=== PATIENT | female | born 1970 | race Caucasian/White ===

== ENCOUNTER → 2016-11-03 | Outpatient (CLI) | payer OTHER ==
--- NOTE | 2016-11-04 08:08 | XR ---
EXAMINATION TYPE: XR lumbar spine 2 or 3V DATE OF EXAM: 11/03/2016 4:39 PM COMPARISON: NONE HISTORY: Segmental somatic dysfunction lumbar spine TECHNIQUE: 3 view lumbar spine FINDINGS: There is loss of disc height L3-L4. Some posterior disc space narrowing is present L5-S1. M ild posterior disc space narrowing may be present L2-L3. Vertebral body heights are preserved. Mild s pondylosis present at the L3-4 level. There 5 lumbar-type vertebral bodies. Pedicles are intact. IMPRESSION: 1. Degenerative disc changes L3-4. 2. Minimal posterior disc space narrowing may be present L2-3, L5-S1
--- NOTE | 2016-11-04 08:09 | XR ---
EXAMINATION TYPE: XR cervical spine limited DATE OF EXAM: 11/03/2016 4:39 PM COMPARISON: NONE HISTORY: Somatic cervical dysfunction TECHNIQUE: 3 view cervical spine FINDINGS: Disc space narrowing is present C5-6 C6-7. Some posterior endplate spurring at C6-7 may be present. Odontoid is limited with overlying occiput. Prevertebral space normal. Posterior spinal lame llar line is intact. There is straightening of the cervical spine related to patient positioning or m uscle spasm. IMPRESSION: 1. Degenerative disc change C5-6 C6-7
== END | disposition home or self-care (01) ==
LOC: RADXRMAIN 16:16
PROVIDERS: ATTEND Chiropractor
DX: M48.06 Spinal stenosis, lumbar region (principal); M48.07 Spinal stenosis, lumbosacral region; M47.816 Spondylosis without myelopathy or radiculopathy, lumbar region; M47.812 Spondylosis without myelopathy or radiculopathy, cervical region
CPT/HCPCS: 72040; 72100

== ENCOUNTER 2016-11-18 21:58 | Emergency (ER) | payer OTHER ==
[2016-11-18 22:24] VITALS: BP 131/87; PULSE 86; TEMP 98.3
[2016-11-18] MEDS ORDERED: PROMETHAZ-COD 6.25-10 MG/5 ML 5 ML CUP PO STA (22:30)
[2016-11-18] MEDS ORDERED: predniSONE 50 MG TAB PO STA (22:30)
--- NOTE | 2016-11-18 22:33 | ED ---
URI HPI - General Chief Complaint: Upper Respiratory Infection Stated Complaint: Coughing/Fever Time Seen by Provider: 11/18/16 22:28 Source: patient, RN notes reviewed Mode of arrival: ambulatory Limitations: no limitations - History of Present Illness Initial Comments: 46-year-old female presents to the emergency Department chief complaint of cough. Patient states she's had a cough. Last 10 days she's felt very sick and under the weather. Patient states that she has had hot and cold with this as well. Patient states that she saw Dr. León this week and started on penicillin but she continues to cough and is not feeling much better. Patient denies any nausea vomiting with this. Patient states she does not smoke. Patient states she is having clear nasal drainage and no real sputum production with the cough. Patient states she was concerned due to the continued cough and no improvement so she thought that she should be evaluated.Patient denies any recent shortness of breath, chest pain, back pain, abdominal pain, nausea vomiting, numbness or tingling, dysuria or hematuria, constipation or diarrhea, headaches or visual changes, or any other current symptoms. - Related Data Home Medications Medication Instructions Recorded Confirmed Albuterol Sulfate [Proair Hfa] 2 puff INHALATION RT-Q6H PRN 01/27/16 11/18/16 Cholecalciferol [Vitamin D3] 1,000 unit PO DAILY 01/27/16 11/18/16 DULoxetine HCL [Cymbalta] 60 mg PO BID 01/27/16 11/18/16 Docusate [Colace] 100 mg PO TID PRN 01/27/16 11/18/16 Gabapentin [Neurontin] 400 mg PO TID 01/27/16 11/18/16 Levothyroxine Sodium [Synthroid] 25 mcg PO DAILY 01/27/16 11/18/16 Naproxen 500 mg PO Q12HR PRN 01/27/16 11/18/16 Pantoprazole Sodium [Protonix] 40 mg PO DAILY 01/27/16 11/18/16 QUEtiapine FUMARATE [SEROquel] 300 mg PO HS 01/27/16 11/18/16 Topiramate [Topamax] 25 mg PO DAILY 01/27/16 11/18/16 buPROPion HCL [Wellbutrin XL] 150 mg PO DAILY 01/27/16 11/18/16 hydrOXYzine HCL [Atarax] 25 mg PO Q8H PRN 01/27/16 11/18/16 tiZANidine [Zanaflex] 4 mg PO DAILY 01/27/16 11/18/16 traMADol HCL [Ultram] 50 mg PO DAILY PRN 01/27/16 11/18/16 carBAMazepine [Carbamazepine] 200 mg PO Q12H 04/24/16 11/18/16 traZODone HCL [Desyrel] 50 mg PO HS 04/24/16 11/18/16 Previous Rx's Medication Instructions Recorded Famciclovir [Famvir] 500 mg PO Q8HR #21 tablet 04/24/16 Lidocaine 5% Patch [Lidoderm 5% 1 patch TOPICAL DAILY #5 patch 04/24/16 Patch] Promethaz-Cod 6.25-10 mg/5 ml 5 ml PO Q4HR PRN #100 ml 11/18/16 [Phenergan with Codeine] predniSONE 50 mg PO DAILY #5 tab 11/18/16 Allergies Allergy/AdvReac Type Severity Reaction Status Date / Time Sulfa (Sulfonamide Allergy Swelling Verified 11/18/16 22:24 Antibiotics) sea-kelp Allergy Rash/Hives Uncoded 11/18/16 22:24 Review of Systems ROS Statement: Those systems with pertinent positive or pertinent negative responses have been documented in the HPI. ROS Other: All systems not noted in ROS Statement are negative. Past Medical History Past Medical History: Fibromyalgia Additional Past Medical History / Comment(s): migraine History of Any Multi-Drug Resistant Organisms: None Reported Past Surgical History: Section, Cholecystectomy Additional Past Surgical History / Comment(s): gastric bypass, ovarian Past Psychological History: No Psychological Hx Reported Smoking Status: Never smoker Past Alcohol Use History: Occasional Past Drug Use History: None Reported General Exam - General Exam Comments Initial Comments: General exam: Alert, active, comfortable in no apparent distress Head: Normocephalic Eyes: Normal reaction of pupils, equal size, normal range of extraocular motion Ears: normal external ear canals, pink tympanic membranes with normal cone of light Nose: clear with pink turbinates Throat: no erythema or exudates with normal sized tonsils Neck: no masses, no nuchal rigidity Chest: no chest wall deformity Lungs: equal air entry with no crackles or wheeze CVS: S1 and S2 normal with no audible mumurs, regular rhythm Abdomen: no hepatosplenomegaly, normal bowel sounds, no guarding or rigidity Spine: no scoliosis or deformity Skin: no rashes Neurological: No focal deficits, tone is normal in all 4 extremities Limitations: no limitations Course Vital Signs 11/18/16 11/18/16 22:22 22:40 Temperature 98.3 F Pulse Rate 86 Respiratory 20 16 Rate Blood Pressure 131/87 O2 Sat by Pulse 98 Oximetry Medical Decision Making - Medical Decision Making 46-year-old female presents to the emergency department with a chief complaint of cough. A 72 start patient on Phenergan with codeine and prednisone. We discussed continuing the antibiotic she received by her doctor earlier. Vital signs are stable. We discussed Motrin Tylenol for pain control and fever control. We discussed return parameters and follow-up. Patient stated that she understood all questions were answered. She'll be discharged. - Radiology Data Radiology results: image reviewed Interpreted by me: Chest x-ray: 2 view: No sign of lobar consolidation, no sign of pneumothorax, osseous structures appear intact, awaiting official radiology read. Disposition Clinical Impression: Upper respiratory infection Disposition: HOME SELF-CARE Condition: Stable Instructions: Upper Respiratory Infection (ED) Additional Instructions: Please use medication as discussed. Please follow up with family doctor if symptoms have not improved over the next two days. Please return to the emergency room if your symptoms increase or worsen or for any other concerns. Prescriptions: Promethaz-Cod 6.25-10 mg/5 ml [Phenergan with Codeine] 5 ml PO Q4HR PRN #100 ml PRN Reason: Cough predniSONE 50 mg PO DAILY #5 tab Referrals: Bj León MD [Primary Care Provider] - 1-2 days Time of Disposition: 22:59
[2016-11-18 22:41] VITALS: RESP 16
--- NOTE | 2016-11-18 23:00 | XR ---
EXAM: XR Chest, 2 Views. CLINICAL HISTORY: Reason: cough TECHNIQUE: Frontal and lateral views of the chest. COMPARISON: None FINDINGS: Hardware: None. Lungs/pleura: Low lung volumes. Minimal bibasilar atelectasis. No focal consolidation. No pleural effusion or pneumothorax. Heart/mediastinum: Normal. No cardiomegaly. Soft tissues: Unremarkable. Bones: No acute fracture. Upper abdomen: Cholecystectomy clips in the right upper quadrant. IMPRESSION: Low lung volumes with minimal bibasilar atelectasis. No focal consolidation.
== END 2016-11-18 23:07 | disposition home or self-care (01) ==
LOC: EC 21:58
DX: J06.9 Acute upper respiratory infection, unspecified (principal); M79.7 Fibromyalgia; Z79.899 Other long term (current) drug therapy; Z88.2 Allergy status to sulfonamides; Z91.013 Allergy to seafood
CPT/HCPCS: 99283; 71020; J7512

== ENCOUNTER 2016-11-29 18:31 | Emergency (ER) | payer OTHER ==
[2016-11-29] MEDS ORDERED: DIPH,PERTUS(ACELL)TETVAC-LF 0.5 ML VIAL IM ONE (21:50)
--- NOTE | 2016-11-29 21:50 | ED ---
General Adult HPI - General Chief complaint: Wound/Laceration Stated complaint: laceration Time Seen by Provider: 11/29/16 21:40 Source: patient, RN notes reviewed Mode of arrival: ambulatory Limitations: no limitations - History of Present Illness Initial comments: This is a 46yo female who presents with a the laceration to the left hand. Patient states this happened this evening as she was using barbed wire to make a fence. Patient states the wire slipped out of her hand and cut her finger. Patient states she is not up-to-date on her tetanus shot. Patient denies any numbness/tingling or weakness. Patient denies any recent fever, chills, shortness breath, chest pain, abdominal pain, nausea/vomiting/diarrhea, back pain, hematuria, headache, or visual changes, or any other complaints. - Related Data Home Medications Medication Instructions Recorded Confirmed Albuterol Sulfate [Proair Hfa] 2 puff INHALATION RT-Q6H PRN 01/27/16 11/18/16 Cholecalciferol [Vitamin D3] 1,000 unit PO DAILY 01/27/16 11/18/16 DULoxetine HCL [Cymbalta] 60 mg PO BID 01/27/16 11/18/16 Docusate [Colace] 100 mg PO TID PRN 01/27/16 11/18/16 Gabapentin [Neurontin] 400 mg PO TID 01/27/16 11/18/16 Levothyroxine Sodium [Synthroid] 25 mcg PO DAILY 01/27/16 11/18/16 Naproxen 500 mg PO Q12HR PRN 01/27/16 11/18/16 Pantoprazole Sodium [Protonix] 40 mg PO DAILY 01/27/16 11/18/16 QUEtiapine FUMARATE [SEROquel] 300 mg PO HS 01/27/16 11/18/16 Topiramate [Topamax] 25 mg PO DAILY 01/27/16 11/18/16 buPROPion HCL [Wellbutrin XL] 150 mg PO DAILY 01/27/16 11/18/16 hydrOXYzine HCL [Atarax] 25 mg PO Q8H PRN 01/27/16 11/18/16 tiZANidine [Zanaflex] 4 mg PO DAILY 01/27/16 11/18/16 traMADol HCL [Ultram] 50 mg PO DAILY PRN 01/27/16 11/18/16 carBAMazepine [Carbamazepine] 200 mg PO Q12H 04/24/16 11/18/16 traZODone HCL [Desyrel] 50 mg PO HS 04/24/16 11/18/16 Previous Rx's Medication Instructions Recorded Famciclovir [Famvir] 500 mg PO Q8HR #21 tablet 04/24/16 Lidocaine 5% Patch [Lidoderm 5% 1 patch TOPICAL DAILY #5 patch 04/24/16 Patch] Promethaz-Cod 6.25-10 mg/5 ml 5 ml PO Q4HR PRN #100 ml 11/18/16 [Phenergan with Codeine] predniSONE 50 mg PO DAILY #5 tab 11/18/16 Cephalexin [Keflex] 500 mg PO Q12HR 5 Days 11/29/16 Allergies Allergy/AdvReac Type Severity Reaction Status Date / Time Sulfa (Sulfonamide Allergy Swelling Verified 11/29/16 18:59 Antibiotics) sea-kelp Allergy Rash/Hives Uncoded 11/29/16 18:59 Review of Systems ROS Statement: Those systems with pertinent positive or pertinent negative responses have been documented in the HPI. ROS Other: All systems not noted in ROS Statement are negative. Past Medical History Past Medical History: Fibromyalgia Additional Past Medical History / Comment(s): migraine History of Any Multi-Drug Resistant Organisms: None Reported Past Surgical History: Section, Cholecystectomy Additional Past Surgical History / Comment(s): gastric bypass, ovarian Past Psychological History: No Psychological Hx Reported Smoking Status: Never smoker Past Alcohol Use History: Occasional Past Drug Use History: None Reported General Exam - General Exam Comments Initial Comments: General: The patient is awake and alert, in no distress, and does not appear acutely ill. Neck: The neck is supple, there is no tenderness or JVD. Cardiovascular: There is a regular rate and rhythm. No murmur, rub or gallop is appreciated. Respiratory: Lungs are clear to auscultation, respirations are non-labored, breath sounds are equal. No wheezes, stridor, rales, or rhonchi. Musculoskeletal: There is tenderness to palpation over the left fourth digit. There is an approximately 1.5 cm laceration to the palmar aspect of the proximal left fourth digit. Patient has full range of motion, strength 5/5 and Sensation intact. Radial pulses 2+ bilaterally and capillary refill is normal at less than 2 seconds. Neurological: A&O x 3. CN II-XII intact, There are no obvious motor or sensory deficits. Coordination appears grossly intact. Speech is normal. Skin: There is an approximately 1.5 cm laceration to the right proximal fourth digit on the palmar side. Skin is warm and dry and no rashes or lesions are noted. Psychiatric: Normal mood and affect. Limitations: no limitations Course Vital Signs 11/29/16 18:57 Temperature 97.5 F L Pulse Rate 95 Respiratory 20 Rate Blood Pressure 116/73 O2 Sat by Pulse 100 Oximetry Procedures - Procedures Initial comment: The skin was anesthetized with 1% lidocaine. The laceration was then cleansed and irrigated with normal saline. The wound was inspected, and there was no evidence of injury to deep structures. No foreign body was noted in the wound. A total of 4 skin sutures were placed utilizing 5-0 Ethilon. Laceration is approx 1.5 cm. Patient tolerated the procedure well. Medical Decision Making - Medical Decision Making This is a 46-year-old female presents laceration to the left hand. On physical exam there is tenderness to palpation over the left fourth digit. There is an approximately 1.5 cm laceration to the palmar aspect of the proximal left fourth digit. Patient has full range of motion, strength 5/5 and Sensation intact. Radial pulses 2+ bilaterally and capillary refill is normal at less than 2 seconds. Patient received a tetanus shot in the [facility] today. An x-ray of the left hand was done and reviewed showing: Normal left hand x-rays. Report by Dr. Peña. The skin was anesthetized with 1% lidocaine. The laceration was then cleansed and irrigated with normal saline. The wound was inspected, and there was no evidence of injury to deep structures. No foreign body was noted in the wound. A total of 4 skin sutures were placed utilizing 5-0 Ethilon. Laceration is approx 1.5 cm. I discussed that sutures need to be removed in 8-10 days. I discussed that rinsing and showering are okay but to avoid submerging the wound in water. Discussed [id number] Tylenol and Motrin as needed for any pain. I discussed use of topical Neosporin. I discussed return parameters and signs of infection. Please finish entire course of Keflex. Discussed that patient should follow up with PCP in one to 2 days or return to the [facility] for any worsening symptoms or for any further concerns. Patient was receptive to this plan and patient will be discharged home. Disposition Clinical Impression: Laceration Disposition: HOME SELF-CARE Condition: Good Instructions: Laceration (ED), Care For Your Stitches (ED) Additional Instructions: Please have sutures removed in 8-10 days. Please finish entire course of antibiotics. Please do not submerge the wound in water but rinsing and showering are okay. Please use Tylenol or Motrin for any pain. Please use medication as discussed. Please follow-up with family doctor in the next 2 days of symptoms have not improved. Please return to emergency room if the symptoms increase or worsen or for any other concerns. Prescriptions: Cephalexin [Keflex] 500 mg PO Q12HR 5 Days Referrals: Bj León MD [Primary Care Provider] - 1-2 days Time of Disposition: 22:42
--- NOTE | 2016-11-29 22:14 | XR ---
EXAM: XR Left Hand Complete, 3 or More Views. CLINICAL HISTORY: Reason: Pain Laceration from gerald wire fourth digit. TECHNIQUE: Frontal, lateral and oblique views of the left hand. COMPARISON: No relevant prior studies available. FINDINGS: Bones/joints: Unremarkable. No acute fracture. No dislocation. Soft tissues: Unremarkable. No radiopaque foreign body. IMPRESSION: Normal left hand x-rays.
[2016-11-29 22:54] VITALS: BP 118/68; PULSE 80; RESP 16; TEMP 97.6
== END 2016-11-29 22:50 | disposition home or self-care (01) ==
LOC: EC 18:31
DX: S61.412A Laceration without foreign body of left hand, initial encounter (principal); W45.8XXA Other foreign body or object entering through skin, initial encounter; W22.8XXA Striking against or struck by other objects, initial encounter; M79.7 Fibromyalgia; Z23 Encounter for immunization; G43.909 Migraine, unspecified, not intractable, without status migrainosus; Z79.899 Other long term (current) drug therapy; Z91.09 Other allergy status, other than to drugs and biological substances; Z88.2 Allergy status to sulfonamides
CPT/HCPCS: 12001; 90471; 90715; 99283

== ENCOUNTER 2017-03-24 16:47 | Emergency (ER) | payer OTHER ==
[2017-03-24 17:03] VITALS: BP 120/84; PULSE 79; RESP 16; TEMP 99
--- NOTE | 2017-03-24 17:36 | XR ---
EXAMINATION TYPE: XR hand complete RT DATE OF EXAM: 03/24/2017 COMPARISON: NONE HISTORY: Pain TECHNIQUE: 3 views FINDINGS: I see no fracture nor dislocation. Joint spaces are normal. There are no erosions. IMPRESSION: Negative right hand exam.
--- NOTE | 2017-03-24 17:36 | XR ---
EXAMINATION TYPE: XR wrist complete RT DATE OF EXAM: 03/24/2017 COMPARISON: NONE HISTORY: Pain TECHNIQUE: 4 views FINDINGS: I see no fracture nor dislocation. Joint spaces are normal. Soft tissues appear normal. IMPRESSION: Normal right wrist
--- NOTE | 2017-03-24 17:38 | ED ---
Upper Extremity HPI - General Chief Complaint: Extremity Injury, Upper Stated Complaint: Wrist/Hand Injury Time Seen by Provider: 03/24/17 17:11 Source: patient, RN notes reviewed, old records reviewed Mode of arrival: ambulatory Limitations: no limitations - History of Present Illness Initial Comments: 47-year-old female presents emergency room chief complaint of right wrist and hand pain after she possibly fell last night [place] Patient reports she was intoxicated. She reports that she does not know exactly how she fell. She reports that she's woke up with swelling and pain over her right hand. She is right-handed. She states that she has no peripheral paresthesias. Denies any elbow pain. She denies any previous fractures or injuries to this hand or wrist.Patient denies any recent fever, chills, shortness of breath, chest pain, back pain, abdominal pain, nausea vomiting, numbness or tingling, dysuria or hematuria, constipation or diarrhea, headaches or visual changes, or any other current symptoms - Related Data Home Medications Medication Instructions Recorded Confirmed Albuterol Sulfate [Proair Hfa] 2 puff INHALATION RT-Q6H PRN 01/27/16 03/24/17 Cholecalciferol [Vitamin D3] 1,000 unit PO DAILY 01/27/16 03/24/17 DULoxetine HCL [Cymbalta] 60 mg PO BID 01/27/16 03/24/17 Docusate [Colace] 100 mg PO TID PRN 01/27/16 03/24/17 Gabapentin [Neurontin] 400 mg PO TID 01/27/16 03/24/17 Levothyroxine Sodium [Synthroid] 25 mcg PO DAILY 01/27/16 03/24/17 Naproxen 500 mg PO Q12HR PRN 01/27/16 03/24/17 Pantoprazole Sodium [Protonix] 40 mg PO DAILY 01/27/16 03/24/17 QUEtiapine FUMARATE [SEROquel] 300 mg PO HS 01/27/16 03/24/17 Topiramate [Topamax] 25 mg PO DAILY 01/27/16 03/24/17 buPROPion HCL [Wellbutrin XL] 150 mg PO DAILY 01/27/16 03/24/17 hydrOXYzine HCL [Atarax] 25 mg PO Q8H PRN 01/27/16 03/24/17 tiZANidine [Zanaflex] 4 mg PO DAILY 01/27/16 03/24/17 traMADol HCL [Ultram] 50 mg PO DAILY PRN 01/27/16 03/24/17 carBAMazepine [Carbamazepine] 200 mg PO Q12H 04/24/16 03/24/17 traZODone HCL [Desyrel] 50 mg PO HS 04/24/16 03/24/17 Previous Rx's Medication Instructions Recorded Famciclovir [Famvir] 500 mg PO Q8HR #21 tablet 04/24/16 Lidocaine 5% Patch [Lidoderm 5% 1 patch TOPICAL DAILY #5 patch 04/24/16 Patch] Promethaz-Cod 6.25-10 mg/5 ml 5 ml PO Q4HR PRN #100 ml 11/18/16 [Phenergan with Codeine] predniSONE 50 mg PO DAILY #5 tab 11/18/16 Cephalexin [Keflex] 500 mg PO Q12HR 5 Days 11/29/16 Naproxen 500 mg PO BID #20 tablet 03/24/17 Allergies Allergy/AdvReac Type Severity Reaction Status Date / Time Sulfa (Sulfonamide Allergy Swelling Verified 03/24/17 17:03 Antibiotics) sea-kelp Allergy Rash/Hives Uncoded 03/24/17 17:03 Review of Systems ROS Statement: Those systems with pertinent positive or pertinent negative responses have been documented in the HPI. ROS Other: All systems not noted in ROS Statement are negative. Past Medical History Past Medical History: Fibromyalgia Additional Past Medical History / Comment(s): migraine History of Any Multi-Drug Resistant Organisms: None Reported Past Surgical History: Section, Cholecystectomy Additional Past Surgical History / Comment(s): gastric bypass, ovarian Past Psychological History: No Psychological Hx Reported Smoking Status: Never smoker Past Alcohol Use History: Occasional Past Drug Use History: None Reported General Exam - General Exam Comments Initial Comments: Pleasant 47-year-old female. No acute distress. Limitations: no limitations General appearance: alert, in no apparent distress Head exam: Present: atraumatic, normocephalic, normal inspection Eye exam: Present: normal appearance, PERRL, EOMI. Absent: scleral icterus, conjunctival injection, periorbital swelling ENT exam: Present: normal exam, mucous membranes moist Neck exam: Present: normal inspection. Absent: tenderness, meningismus, lymphadenopathy Respiratory exam: Present: normal lung sounds bilaterally. Absent: respiratory distress, wheezes, rales, rhonchi, stridor Cardiovascular Exam: Present: regular rate, normal rhythm, normal heart sounds. Absent: systolic murmur, diastolic murmur, rubs, gallop, clicks GI/Abdominal exam: Present: soft, normal bowel sounds. Absent: distended, tenderness, guarding, rebound, rigid Extremities exam: Present: normal inspection, full ROM, normal capillary refill. Absent: tenderness, pedal edema, joint swelling, calf tenderness Right Upper Arm exam: Present: normal inspection, full ROM Elbow exam: Present: normal inspection, full ROM Forearm Wrist exam: Present: swelling (Patient has some swelling and mild deformity noted over the distal right wrist.), tenderness over anatomical snuff box. Absent: normal inspection, pain with axial thumb loading Hand Wrist exam: Present: normal inspection, tenderness, ecchymosis (Patient has some tenderness and ecchymosis noted at the base of the third metacarpal.). Absent: full ROM Neuro motor exam: Present: wrist extension intact, thumb opposition intact Vascular: Present: normal capillary refill Back exam: Present: normal inspection Neurological exam: Present: alert, oriented X3, CN II-XII intact Psychiatric exam: Present: normal affect, normal mood Skin exam: Present: warm, dry, intact, normal color. Absent: rash Course Vital Signs 03/24/17 16:59 Temperature 99.0 F Pulse Rate 79 Respiratory 16 Rate Blood Pressure 120/84 O2 Sat by Pulse 100 Oximetry Procedures - Orthopedic Splinting/Casting Injury #1 Side: right Upper Extremity Injury Location: wrist Upper Extremity Immobilizer: thumb spica Additional Comments: Patient's capillary refill status is within normal limits after. Medical Decision Making - Medical Decision Making 47-year-old female presents emergency room chief complaint of right wrist and hand pain after she possibly fell last [place] Patient reports she was intoxicated. She reports that she does not know exactly how she fell. She reports that she's woke up with swelling and pain over her right hand. She is right-handed. X-rays are reviewed and negative for any acute process. Patient is somewhat tender over the anatomical snuffbox. Given the fact is an unknown mechanism of injury is likely patient could've fallen on outstretched hand. Patient will be placed in a thumb spica splint. Discussed that she needs to rest and ice and elevate extremity. Discussed taking his have laboratory medicine. Patient be given a referral for orthopedic physician. - Radiology Data Radiology results: report reviewed Right wrist and hand x-rays are reviewed and negative for any acute process. Disposition Clinical Impression: Wrist sprain, Right wrist injury Disposition: HOME SELF-CARE Condition: Good Instructions: Wrist Injury (ED) Additional Instructions: Patient is to rest, ice, elevate extremity. Take a temperature medications for pain. Patient advised to keep the splint on until he can see orthopedic on Sunday. Return to the emergency department if any alarming signs or symptoms occur. Prescriptions: Naproxen 500 mg PO BID #20 tablet Referrals: Bj León MD [Primary Care Provider] - 1-2 days Remigio Bermudez MD [STAFF PHYSICIAN] - 1-2 days Time of Disposition: 17:40
== END 2017-03-24 17:57 | disposition home or self-care (01) ==
LOC: EC 16:47
DX: S63.501A Unspecified sprain of right wrist, initial encounter (principal); F10.129 Alcohol abuse with intoxication, unspecified; M79.7 Fibromyalgia; Z79.899 Other long term (current) drug therapy; Z88.2 Allergy status to sulfonamides; Z91.09 Other allergy status, other than to drugs and biological substances; Z86.69 Personal history of other diseases of the nervous system and sense organs; W19.XXXA Unspecified fall, initial encounter; Y92.814 Boat as the place of occurrence of the external cause
CPT/HCPCS: 29125; 99284

== ENCOUNTER 2017-03-28 15:12 | Emergency (ER) | payer OTHER ==
[2017-03-28 16:03] VITALS: BP 121/70; PULSE 85; RESP 18; TEMP 98.3
--- NOTE | 2017-03-28 16:13 | ED ---
General Adult HPI - General Chief complaint: Extremity Injury, Upper Stated complaint: right hand injury-revisit Time Seen by Provider: 03/28/17 16:03 Source: patient, RN notes reviewed Mode of arrival: ambulatory Limitations: no limitations - History of Present Illness Initial comments: 47-year-old female presents emergency Department chief complaint of continued right wrist pain. Patient had a fall over night and continues to have pain to the right wrist. Patient states that she did have x-rays that were negative there concerned about her tenderness or that will not see her due to her insurance. Patient states she is here because she did not know what else to go. Patient states that she hasn't had any cough cold Raynaud's. Patient denies any new or changing injury. Patient denies any recent fever, chills, shortness of breath, chest pain, back pain, abdominal pain, nausea vomiting, numbness or tingling, dysuria or hematuria, constipation or diarrhea, headaches or visual changes, or any other current symptoms. - Related Data Home Medications Medication Instructions Recorded Confirmed Albuterol Sulfate [Proair Hfa] 2 puff INHALATION RT-Q6H PRN 01/27/16 03/24/17 Cholecalciferol [Vitamin D3] 1,000 unit PO DAILY 01/27/16 03/24/17 DULoxetine HCL [Cymbalta] 60 mg PO BID 01/27/16 03/24/17 Docusate [Colace] 100 mg PO TID PRN 01/27/16 03/24/17 Gabapentin [Neurontin] 400 mg PO TID 01/27/16 03/24/17 Levothyroxine Sodium [Synthroid] 25 mcg PO DAILY 01/27/16 03/24/17 Naproxen 500 mg PO Q12HR PRN 01/27/16 03/24/17 Pantoprazole Sodium [Protonix] 40 mg PO DAILY 01/27/16 03/24/17 QUEtiapine FUMARATE [SEROquel] 300 mg PO HS 01/27/16 03/24/17 Topiramate [Topamax] 25 mg PO DAILY 01/27/16 03/24/17 buPROPion HCL [Wellbutrin XL] 150 mg PO DAILY 01/27/16 03/24/17 hydrOXYzine HCL [Atarax] 25 mg PO Q8H PRN 01/27/16 03/24/17 tiZANidine [Zanaflex] 4 mg PO DAILY 01/27/16 03/24/17 traMADol HCL [Ultram] 50 mg PO DAILY PRN 01/27/16 03/24/17 carBAMazepine [Carbamazepine] 200 mg PO Q12H 04/24/16 03/24/17 traZODone HCL [Desyrel] 50 mg PO HS 04/24/16 03/24/17 Previous Rx's Medication Instructions Recorded Famciclovir [Famvir] 500 mg PO Q8HR #21 tablet 04/24/16 Lidocaine 5% Patch [Lidoderm 5% 1 patch TOPICAL DAILY #5 patch 04/24/16 Patch] Promethaz-Cod 6.25-10 mg/5 ml 5 ml PO Q4HR PRN #100 ml 11/18/16 [Phenergan with Codeine] predniSONE 50 mg PO DAILY #5 tab 11/18/16 Cephalexin [Keflex] 500 mg PO Q12HR 5 Days 11/29/16 Naproxen 500 mg PO BID #20 tablet 03/24/17 Allergies Allergy/AdvReac Type Severity Reaction Status Date / Time Sulfa (Sulfonamide Allergy Swelling Verified 03/28/17 16:02 Antibiotics) sea-kelp Allergy Rash/Hives Uncoded 03/28/17 16:02 Review of Systems ROS Statement: Those systems with pertinent positive or pertinent negative responses have been documented in the HPI. ROS Other: All systems not noted in ROS Statement are negative. Past Medical History Past Medical History: Fibromyalgia Additional Past Medical History / Comment(s): migraine History of Any Multi-Drug Resistant Organisms: None Reported Past Surgical History: Section, Cholecystectomy Additional Past Surgical History / Comment(s): gastric bypass, ovarian Past Psychological History: No Psychological Hx Reported Smoking Status: Never smoker Past Alcohol Use History: Occasional Past Drug Use History: None Reported General Exam - General Exam Comments Initial Comments: General: The patient is awake and alert, in no distress, and does not appear acutely ill. Neck: The neck is supple, there is no tenderness . Cardiovascular: There is a regular rate and rhythm. No murmur, rub or gallop is appreciated. Respiratory: Lungs are clear to auscultation, respirations are non-labored, breath sounds are equal. No wheezes, stridor, rales, or rhonchi. Musculoskeletal: Sensation intact with 2+ pulses. Pressure. Patient has pain with range of motion of the wrist but full range motion of right hand and elbow. Patient has tenderness of the anatomical snuffbox. There is bruising and pain noted throughout all metacarpals. Neurological: CN II-XII intact, There are no obvious motor or sensory deficits. Coordination appears grossly intact. Speech is normal. Skin: Skin is warm and dry and no rashes or lesions are noted. Psychiatric: Normal mood and affect. Limitations: no limitations Course Vital Signs 03/28/17 15:59 Temperature 98.3 F Pulse Rate 85 Respiratory 18 Rate Blood Pressure 121/70 O2 Sat by Pulse 100 Oximetry Medical Decision Making - Medical Decision Making 47-year-old female presents emergency department with a Chief complaint of right wrist pain. Patient continues to have anatomical snuffbox. This time we did give her follow-up to orthopedic we discussed return parameters all questions. Patient stated that she understood. She'll be discharged home. Disposition Clinical Impression: Wrist sprain, Right wrist injury Disposition: HOME SELF-CARE Condition: Serious Instructions: Wrist Injury (ED) Additional Instructions: Please use medication as discussed. Please follow up with family doctor if symptoms have not improved over the next two days. Please return to the emergency room if your symptoms increase or worsen or for any other concerns. Referrals: Bj León MD [Primary Care Provider] - 1-2 days Aundrea Chavarria DO [Doctor of Osteopathic Medicine] - 1-2 days Time of Disposition: 16:12
== END 2017-03-28 16:22 | disposition home or self-care (01) ==
LOC: EC 15:12
DX: S63.501A Unspecified sprain of right wrist, initial encounter (principal); M79.7 Fibromyalgia; Z88.2 Allergy status to sulfonamides; Z88.8 Allergy status to other drugs, medicaments and biological substances; Z79.899 Other long term (current) drug therapy; Y92.89 Other specified places as the place of occurrence of the external cause
CPT/HCPCS: 99282

== ENCOUNTER → 2017-06-22 | Outpatient (CLI) | payer OTHER ==
--- NOTE | 2017-06-22 13:25 | US ---
EXAMINATION TYPE: US thyroid st tissue head/neck DATE OF EXAM: 06/22/2017 COMPARISON: NONE CLINICAL HISTORY: E04.1 SINGLE THYROID NODULE. GLAND SIZE: Right Lobe: 3.9 x 1.0 x 0.9 cm Overall Parenchyma: homogenous Left Lobe: 4.1 x 0.8 x 1.4 cm Overall Parenchyma: homogeneous Isthmus Thickness: 0.2 cm NODULES RIGHT: # of nodules measured on right: 0 LEFT: # of nodules measured on left: 1 1. 1.2 X 0.8 x 0.9 cm hypoechoic solid nodule at the lower pole with well-defined margins; . This nodule is wider than tall and shows intranodular vascularity. Prior size: No previous ISTHMUS: # of nodules measured in the isthmus: 0 Bilateral neck scanned, no evidence of lymphadenopathy. IMPRESSION: 1.2 cm solid nodule left lobe of thyroid.
== END ==
LOC: RADUSWWP 12:57
PROVIDERS: ATTEND Family Medicine
DX: E04.1 Nontoxic single thyroid nodule (principal)
CPT/HCPCS: 76536

== ENCOUNTER 2017-07-23 18:27 | Emergency (ER) | payer OTHER ==
[2017-07-23] MEDS ORDERED: DIAZEPAM 5 MG TAB PO STA (19:19)
--- NOTE | 2017-07-23 19:26 | ED ---
General Adult HPI - General Chief complaint: Back Pain/Injury Stated complaint: BACK PAIN Time Seen by Provider: 07/23/17 19:06 Source: patient Mode of arrival: wheelchair Limitations: physical limitation - History of Present Illness Initial comments: a 47-year-old female with a history of fibromyalgia presents with a chief complaint of "back pain and ovary pain" that started 3 hours ago. The patient states that the inciting incident was cleaning her kitchen. Patient states that she followed back tighten up, and went to lay down. When she woke up she was in excruciating pain. She was carried to the car and brought to the emergency department on initial evaluation, the patient appears to be in no distress, she is sitting with her right knee talked to her chest. Her vital signs are stable. He is talking and joking with her family in the exam room. Patient appears comfortable. Patient states that her pain is aggravated by moving. It is alleviated by bringing her knee to her chest. She does have a history of polycystic ovaries. She is ALLERGIC to sulfa. - Related Data Home Medications Medication Instructions Recorded Confirmed DULoxetine HCL [Cymbalta] 60 mg PO BID 01/27/16 07/23/17 Gabapentin [Neurontin] 400 mg PO TID 01/27/16 07/23/17 Levothyroxine Sodium [Synthroid] 25 mcg PO DAILY 01/27/16 07/23/17 Naproxen 500 mg PO Q12HR PRN 01/27/16 07/23/17 QUEtiapine FUMARATE [SEROquel] 300 mg PO HS 01/27/16 07/23/17 carBAMazepine [Carbamazepine] 200 mg PO Q12H 04/24/16 07/23/17 Previous Rx's Medication Instructions Recorded Methocarbamol [Robaxin-750] 750 mg PO TID #10 tablet 07/23/17 Allergies Allergy/AdvReac Type Severity Reaction Status Date / Time Sulfa (Sulfonamide Allergy Swelling Verified 07/23/17 19:49 Antibiotics) sea-kelp Allergy Rash/Hives Uncoded 07/23/17 18:45 Review of Systems ROS Statement: Those systems with pertinent positive or pertinent negative responses have been documented in the HPI. ROS Other: All systems not noted in ROS Statement are negative. Constitutional: Denies: fever Eyes: Denies: vision change ENT: Denies: ear pain, throat pain Respiratory: Denies: dyspnea Cardiovascular: Denies: chest pain Endocrine: Denies: fatigue Gastrointestinal: Reports: abdominal pain. Denies: nausea, vomiting Genitourinary: Denies: dysuria Musculoskeletal: Denies: back pain Skin: Denies: rash, lesions Neurological: Denies: headache Past Medical History Past Medical History: Fibromyalgia Additional Past Medical History / Comment(s): migraine History of Any Multi-Drug Resistant Organisms: None Reported Past Surgical History: Section, Cholecystectomy Additional Past Surgical History / Comment(s): gastric bypass, ovarian Past Psychological History: No Psychological Hx Reported Smoking Status: Never smoker Past Alcohol Use History: Occasional Past Drug Use History: None Reported General Exam Limitations: no limitations, language barrier, physical limitation General appearance: alert, in no apparent distress Head exam: Present: atraumatic, normocephalic Respiratory exam: Present: normal lung sounds bilaterally Cardiovascular Exam: Present: regular rate, normal rhythm GI/Abdominal exam: Present: soft, tenderness (patient has tenderness to palpation of the right lower quadrant). Absent: distended Rectal exam: Present: deferred Back exam: Present: normal inspection. Absent: CVA tenderness (R), CVA tenderness (L) Neurological exam: Present: alert, oriented X3 Psychiatric exam: Present: normal affect, normal mood Skin exam: Present: warm, dry, intact Course Vital Signs 07/23/17 18:44 Temperature 98.1 F Pulse Rate 88 Respiratory 20 Rate Blood Pressure 118/75 O2 Sat by Pulse 98 Oximetry Medical Decision Making - Medical Decision Making patient presents with a chief complaint of "back and ovary pain". History and physical examination are consistent with a strain of the psoas muscle. At this time there is a low likelihoodfor etiologies such as appendicitis given the patient is afebrile, normal appetite, bowel movements, and had a very abrupt onset. Patient does have a history of polycystic ovaries for which she will be evaluated with ultrasound to rule out torsion patient was given Valium for suspected muscle spasm. 9:16 PM Ultrasound evaluation of the pelvic organs shows a surgically absent uterus with good flow to the ovaries bilaterally. There is a cyst on the left ovary otherwise there is no acute process. A reexamination, patient states that she is still in pain. I discussed that we will not be using narcotic medication and that I'm willing to give her a dose of Robaxin and a prescription. She is agreeable. Patient was instructed to follow up with her primary care doctor or return to the emergency department if her symptoms worsen or change Disposition Clinical Impression: Mechanical back pain Disposition: HOME SELF-CARE Condition: Good Instructions: Muscle Spasm (ED) Referrals: Bj León MD [Primary Care Provider] - 1-2 days
--- NOTE | 2017-07-23 20:41 | US ---
EXAMINATION TYPE: US transvaginal DATE OF EXAM: 07/23/2017 COMPARISON: NONE CLINICAL HISTORY: Pain. RLQ pain hx of PCOS TECHNIQUE: Transvaginal (TV) EXAM MEASUREMENTS: Uterus: Surgically absent cm Endometrial Stripe: Surgically absent cm Right Ovary: 2.9 x 1.7 x 2.0 cm Left Ovary: 4.1 x 2.7 x 3.1 cm Bilateral follicles seen largest cystic area left ovary measuring 3.0 x 1.4 x 2.7cm 1. Uterus: Surgically absent 2. Endometrium: Surgically absent 3. Right Ovary: wnl 4. Left Ovary: cystic area measuring 3.0 x 1.4 x 2.7cm Spectral, color and waveform doppler imaging shows good arterial and venous flow within the ovaries ; there is no evidence for ovarian torsion. 5. Bilateral Adnexa: wnl 6. Posterior cul-de-sac: wnl Tried to have patient empty bladder at start of exam unable to empty IMPRESSION: There is a dominant simple cyst on the left ovary. No solid adnexal mass.
[2017-07-23] MEDS ORDERED: METHOCARBAMOL 750 MG TAB PO ONE (21:14)
[2017-07-23 21:37] VITALS: BP 121/76; PULSE 63; RESP 18; TEMP 97.2
== END 2017-07-23 21:37 | disposition home or self-care (01) ==
LOC: EC 18:27
DX: M54.9 Dorsalgia, unspecified (principal); N94.89 Other specified conditions associated with female genital organs and menstrual cycle; M79.7 Fibromyalgia; Z79.899 Other long term (current) drug therapy; Z88.2 Allergy status to sulfonamides; Z88.8 Allergy status to other drugs, medicaments and biological substances
CPT/HCPCS: 76830; 93975; 99283

== ENCOUNTER 2017-12-31 16:57 | Emergency (ER) | payer OTHER ==
[2017-12-31 17:58] VITALS: BP 116/81; PULSE 77; RESP 18; TEMP 97.3
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
== END 2017-12-31 19:18 | disposition home or self-care (01) ==
LOC: EC 16:57
DX: G89.29 Other chronic pain (principal); M54.5 Low back pain; M79.7 Fibromyalgia; F31.9 Bipolar disorder, unspecified; F41.9 Anxiety disorder, unspecified; Z79.899 Other long term (current) drug therapy; Z88.2 Allergy status to sulfonamides; Z91.013 Allergy to seafood
CPT/HCPCS: 72110; 99283

== ENCOUNTER → 2018-01-18 | Outpatient (CLI) | payer OTHER ==
[2018-01-18 12:44] LABS: Anisocytosis Slight; HCT 33.2 % (34.0-46.0); HGB 10.1 gm/dL (11.4-16.0); Hypochromasia Marked; MCH 24.8 pg (25.0-35.0); MCHC 30.5 g/dL (31.0-37.0); MCV 81.3 fL (80.0-100.0); Mean Platelet Volume 6.8; Platelet Count 323 k/uL (150-450); RBC 4.08 m/uL (3.80-5.40); WBC 5.5 k/uL (3.8-10.6)
[2018-01-18 13:07] LABS: Prothrombin Time 9.9 sec (9.0-12.0)
[2018-01-18 13:10] LABS: ALT 24 U/L (9-52); AST 16 U/L (14-36); Albumin 3.8 g/dL (3.5-5.0); Alkaline Phosphatase 99 U/L (38-126); Anion Gap 11 mmol/L; Blood Urea Nitrogen 13 mg/dL (7-17); Calcium 9.2 mg/dL (8.4-10.2); Carbon Dioxide 24 mmol/L (22-30); Chloride 108 mmol/L (98-107); Cholesterol 212 mg/dL (<200); Glucose 82 mg/dL (74-99); HDL Cholesterol 53 mg/dL (40-60); LDL Cholesterol,Calculated 128 mg/dL (0-99); Magnesium 2.2 mg/dL (1.6-2.3); Phosphorus 4.4 mg/dL (2.5-4.5); Sodium 143 mmol/L (137-145); Total Bilirubin 0.3 mg/dL (0.2-1.3); Total Protein 6.3 g/dL (6.3-8.2); Triglycerides 157 mg/dL (<150)
[2018-01-18 19:14] LABS: Parathyroid Hormone Intact 89.3 pg/mL (14.0-72.0)
[2018-01-18 19:17] LABS: Folate, Serum 5.5 ng/mL
[2018-01-18 19:41] LABS: Iron Saturation 6.67 (12.00-45.00)
[2018-01-18 21:20] LABS: Hemoglobin A1C 5.3 % (4.0-6.0)
[2018-01-21 12:16] LABS: Zinc, Serum 90 ug/dL (60-130)
[2018-01-22 06:17] LABS: Vitamin A 29 ug/dL (38-106)
[2018-01-22 07:05] LABS: Vitamin B1 58 ug/L (38-122)
[2018-01-22 16:57] LABS: Selenium 102 mcg/L (63-160)
== END | disposition home or self-care (01) ==
LOC: LABWHC1 11:50
PROVIDERS: ATTEND Surgery Plastic and Reconstructive Surgery
DX: E55.9 Vitamin D deficiency, unspecified (principal); E66.01 Morbid (severe) obesity due to excess calories; E21.1 Secondary hyperparathyroidism, not elsewhere classified; E89.1 Postprocedural hypoinsulinemia; D50.8 Other iron deficiency anemias; E44.0 Moderate protein-calorie malnutrition; K74.1 Hepatic sclerosis; N19 Unspecified kidney failure; K50.90 Crohn's disease, unspecified, without complications
CPT/HCPCS: 36415; 80053; 80061; 82306; 82525; 82607; 82728; 82746; 83036; 83540; 83550; 83735; 83970; 84100; 84134; 84255; 84425; 84443; 84590; 84630; 85027; 85610; 85730

== ENCOUNTER → 2018-01-21 | Outpatient (CLI) | payer OTHER ==
--- NOTE | 2018-01-21 19:29 | CT ---
EXAMINATION TYPE: CT abdomen pelvis w con DATE OF EXAM: 01/21/2018 COMPARISON: NONE HISTORY: ABDOMINAL PAIN AFTER EATING X2 MONTHS CT DLP: 1422 mGycm Automated exposure control for dose reduction was used. TECHNIQUE: Helical acquisition of images was performed from the lung bases through the pelvis. CONTRAST: Performed with Oral Contrast and with IV Contrast, patient injected with 100 mL of Isovue 300. FINDINGS: Lung bases are clear of consolidation. There is mild interstitial density at the left posterior lung base. There is no pleural effusion. There are clips from bariatric surgery. The liver spleen pancreas appear normal. There are clips from cholecystectomy. Bile ducts are not dilated. There is no adrenal mass. Kidneys show satisfactory contrast opacification. There is no hydronephrosi s. There is hysterectomy. There is 5.5 cm cystic mass in the pelvis on the left side. The bladder dis tends smoothly. I see no intestinal wall thickening. There are no dilated loops. There is no evidence of bowel obstru ction. There is no ascites. There is no sign of free air. There is narrowing at the L3-4 disc space w ith spurring. There is no compression fracture. The appendix appears normal. I see no evidence of div erticulosis. IMPRESSION: LARGE LEFT-SIDED PELVIC CYSTIC MASS IS PROBABLY FROM THE RIGHT OVARY. FOLLOW-UP IS RECOMMENDED. NO EV IDENCE OF DIVERTICULITIS. MINIMAL SUBSEGMENTAL ATELECTASIS AT THE LEFT LUNG BASE.
== END | disposition home or self-care (01) ==
LOC: RADCTMAIN 18:11
PROVIDERS: ATTEND Surgery Plastic and Reconstructive Surgery
DX: N94.89 Other specified conditions associated with female genital organs and menstrual cycle (principal); Z88.2 Allergy status to sulfonamides; Z88.1 Allergy status to other antibiotic agents; Z91.048 Other nonmedicinal substance allergy status
CPT/HCPCS: 74177; Q9967

== ENCOUNTER 2018-03-13 08:28 | Day surgery (SDC) | payer OTHER ==
[2018-03-08 14:33] VITALS: BMI 29.6
--- NOTE | 2018-03-13 07:45 | P.GSHP ---
History of Present Illness H&P Date: 03/13/18 CHIEF COMPLAINT: Gastrointestinal bleed HISTORY OF PRESENT ILLNESS: The patient is a 48-year-old female who presents with gastrointestinal bleed. Upper and lower endoscopy were offered for further evaluation and management. PAST MEDICAL HISTORY: Please see list. PAST SURGICAL HISTORY: Please see list. MEDICATIONS: Please see list. ALLERGIES: Please see list. SOCIAL HISTORY: No illicit drug use FAMILY HISTORY: No reports of Crohn disease or ulcerative colitis. REVIEW OF ORGAN SYSTEMS: CONSTITUTIONAL: No reports of fevers or chills. GI: Denies any blood in stools or constipation. PHYSICAL EXAM: VITAL SIGNS: Stable GENERAL: Well-developed pleasant in no acute distress. HEENT: No scleral icterus. Extraocular movements grossly intact. Moist buccal mucosa. NECK: Supple without lymphadenopathy. CHEST: Unlabored respirations. Equal bilateral excursions. CARDIOVASCULAR: Regular rate and rhythm. Distal 2+ pulses. ABDOMEN: Soft, nondistended. MUSCULOSKELETAL: No clubbing, cyanosis, or edema. ASSESSMENT: 1. Gastrointestinal bleed PLAN: 1. Recommend proceeding with an upper and lower endoscopy Past Medical History Past Medical History: CVA/TIA, Fibromyalgia Additional Past Medical History / Comment(s): migraine, chronic back pain, patient states that she has had 3 strokes and has 40 spots on her brain. History of Any Multi-Drug Resistant Organisms: None Reported Past Surgical History: Bariatric Surgery, Section, Cholecystectomy, Hysterectomy Additional Past Surgical History / Comment(s): gastric bypass, ovarian, radiosequency hess to her back nerves Past Anesthesia/Blood Transfusion Reactions: Previous Problems w/ Anesthesia Additional Past Anesthesia/Blood Transfusion Reaction / Comment(s): "needed extra anesthesia" shaking after anesthesia Smoking Status: Never smoker - Past Family History Mother Family Medical History: Cancer Additional Family Medical History / Comment(s): breast and ovarian cancer Medications and Allergies Home Medications Medication Instructions Recorded Confirmed Type Gabapentin [Neurontin] 600 mg PO TID 01/27/16 03/08/18 History Levothyroxine Sodium [Synthroid] 25 mcg PO DAILY 01/27/16 03/08/18 History Naproxen 500 mg PO Q12HR PRN 01/27/16 03/08/18 History QUEtiapine FUMARATE [SEROquel] 300 mg PO HS 01/27/16 03/08/18 History Butalb/APAP/Caff 50-325-40Mg 1 tab PO Q8H PRN 03/08/18 03/08/18 History [Fioricet 50-325-40] Topiramate 50 mg PO BID 03/08/18 03/08/18 History Venlafaxine HCl [Venlafaxine HCl 225 mg PO DAILY 03/08/18 03/08/18 History ER] clonazePAM [KlonoPIN] 0.25 mg PO DAILY 03/08/18 03/08/18 History hydrOXYzine PAMOATE [Vistaril] 25 mg PO BID 03/08/18 03/08/18 History tiZANidine HCL 4 mg PO BID 03/08/18 03/08/18 History traMADol HCL [Ultram] 50 mg PO TID 03/08/18 03/08/18 History Allergies Allergy/AdvReac Type Severity Reaction Status Date / Time Sulfa (Sulfonamide Allergy Swelling Verified 03/08/18 14:16 Antibiotics) sea-kelp Allergy Rash/Hives Uncoded 03/08/18 14:16
[~2018-03-13 08:28] MED LIST: LACTATED RINGERS 1,000 ML IV SCH
[2018-03-13 09:09] VITALS: RESP 16; TEMP 98.4
[2018-03-13] MEDS ORDERED: LIDOCAINE 1% 20 ML VIAL (10MG/ML) FOR IV START INTRADERMA ONE (09:10)
[2018-03-13] MEDS ORDERED: PROPOFOL 10 MG/ML 20 ML VIAL IV ONE (09:40)
[2018-03-13] MEDS ORDERED: LIDOCAINE 1% INJ 10MG/ML (20 ML MDV) ONE (09:40)
--- NOTE | 2018-03-13 10:18 | P.PCN ---
Date of Procedure: 03/13/18 Description of Procedure: PREOPERATIVE DIAGNOSIS: Gastrointestinal bleed POSTOPERATIVE DIAGNOSIS: Gastrointestinal bleed Scattered diverticulosis, sigmoid colon Poor prep OPERATION: Colonoscopy to the ascending colon SURGEON: Kellee Cannon MD. ANESTHESIA: MAC. INDICATIONS: The patient is a 48-year-old female who presents with gastrointestinal bleed. Lower endoscopy was offered for diagnostic evaluation. Benefits and risks were described and informed consent was obtained. DESCRIPTION OF PROCEDURE: The patient had undergone Gatorade, MiraLAX and Dulcolax prep. She had been brought into the operating room and laid in the left lateral decubitus position. After adequate intravenous sedation, the rectum was examined with 2% lidocaine jelly. No external hemorrhoids were encountered. The rectal tone was within normal limits. No lesions were palpated in the rectal vault. An Olympus colonoscope was advanced until the ascending colon. The prep was poor with over 1.75 L of fluid evacuated from the colon. The scope was removed with visualization of each mucosal fold. Scattered diverticulosis was encountered. No colonic polyps were found. No evidence of focal colitis was found. Retroflexion of the scope demonstrated grade 1 internal hemorrhoids without active bleeding or inflammation. The colon was desufflated. The patient had tolerated the procedure well. Withdrawal time was over 6 minutes. FINDINGS: Internal hemorrhoids, grade 1 No external prolapsed hemorrhoids. No arteriovenous malformations. No adenomatous polyps. No focal colitis. Sigmoid diverticulosis RECOMMENDATIONS: Repeat lower endoscopy age of 52. Plan - Discharge Summary New Discharge Prescriptions: New Ergocalciferol [Vitamin D2 (DRISDOL)] 50,000 unit PO Q7D #12 cap Vitamin A 8,000 unit PO DAILY #30 capsule No Action QUEtiapine FUMARATE [SEROquel] 300 mg PO HS Levothyroxine Sodium [Synthroid] 25 mcg PO DAILY Naproxen 500 mg PO Q12HR PRN PRN Reason: Pain Gabapentin [Neurontin] 600 mg PO TID hydrOXYzine PAMOATE [Vistaril] 25 mg PO BID Butalb/APAP/Caff 50-325-40Mg [Fioricet 50-325-40] 1 tab PO Q8H PRN PRN Reason: Pain tiZANidine HCL 4 mg PO BID clonazePAM [KlonoPIN] 0.25 mg PO DAILY Topiramate 50 mg PO BID traMADol HCL [Ultram] 50 mg PO TID Venlafaxine HCl [Venlafaxine HCl ER] 225 mg PO DAILY Discharge Medication List Gabapentin [Neurontin] 600 mg PO TID 01/27/16 [History] Levothyroxine Sodium [Synthroid] 25 mcg PO DAILY 01/27/16 [History] Naproxen 500 mg PO Q12HR PRN 01/27/16 [History] QUEtiapine FUMARATE [SEROquel] 300 mg PO HS 01/27/16 [History] Butalb/APAP/Caff 50-325-40Mg [Fioricet 50-325-40] 1 tab PO Q8H PRN 03/08/18 [ History] Topiramate 50 mg PO BID 03/08/18 [History] Venlafaxine HCl [Venlafaxine HCl ER] 225 mg PO DAILY 03/08/18 [History] clonazePAM [KlonoPIN] 0.25 mg PO DAILY 03/08/18 [History] hydrOXYzine PAMOATE [Vistaril] 25 mg PO BID 03/08/18 [History] tiZANidine HCL 4 mg PO BID 03/08/18 [History] traMADol HCL [Ultram] 50 mg PO TID 03/08/18 [History] Ergocalciferol [Vitamin D2 (DRISDOL)] 50,000 unit PO Q7D #12 cap 03/13/18 [Rx] Vitamin A 8,000 unit PO DAILY #30 capsule 03/13/18 [Rx]
--- NOTE | 2018-03-13 10:20 | P.PCN ---
Date of Procedure: 03/13/18 Description of Procedure: PREOPERATIVE DIAGNOSIS: Dysphagia. s/p Ervin-en-y gastric bypass. Nausea with vomiting. Gastrointestinal bleeding POSTOPERATIVE DIAGNOSIS: Dysphagia. s/p Ervin-en-y gastric bypass. Nausea with vomiting. 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 Esophagogastrojejunoscopy with cold biopsy forceps along the gastric pouch SURGEON: Kellee Cannon MD ANESTHESIA: MAC. INDICATIONS: The patient is a 48-year-old female who presents with a history of dysphagia, gastric bypass including gastrointestinal bleeding. Benefits and risks of the procedure were described. Informed consent was obtained. DESCRIPTION: The patient was brought into the endoscopy suite and laid in the left lateral decubitus position. After a timeout was confirmed, the procedure was initiated. An Olympus gastroscope was passed along the posterior oropharynx down to the distal esophagus where the squamocolumnar junction was unremarkable. The gastric pouch was entered. A gastrojejunal stricture of 18 mm was found as the adult gastroscope was 9.5 mm in size. A [employer] balloon dilator was placed through the scope. Final insufflation up to 20 mm was performed with a total of 2 minutes. The scope was advanced up to 60 cm from the incisors into the Ervin limb. The mucosa of the gastrojejunal anastomosis was intact. However chronic gastrojejunal marginal ulcer was encountered. No full-thickness injury was encountered. Biopsies were obtained along the gastric pouch with cold forceps. The GI tract was desufflated. The patient tolerated the procedure well. FINDINGS: Stricture of approximately 18 mm encountered. Chronic gastrojejunal ulceration encountered. Successful balloon dilatation to 20 mm. Sliding diaphragmatic hiatal hernia Gastric pouch 36-42 cm from the incisors. RECOMMENDATIONS: Recommend avoiding NSAIDs. Proton pump inhibitors for 4 weeks Plan - Discharge Summary New Discharge Prescriptions: New Ergocalciferol [Vitamin D2 (DRISDOL)] 50,000 unit PO Q7D #12 cap Vitamin A 8,000 unit PO DAILY #30 capsule No Action QUEtiapine FUMARATE [SEROquel] 300 mg PO HS Levothyroxine Sodium [Synthroid] 25 mcg PO DAILY Naproxen 500 mg PO Q12HR PRN PRN Reason: Pain Gabapentin [Neurontin] 600 mg PO TID hydrOXYzine PAMOATE [Vistaril] 25 mg PO BID Butalb/APAP/Caff 50-325-40Mg [Fioricet 50-325-40] 1 tab PO Q8H PRN PRN Reason: Pain tiZANidine HCL 4 mg PO BID clonazePAM [KlonoPIN] 0.25 mg PO DAILY Topiramate 50 mg PO BID traMADol HCL [Ultram] 50 mg PO TID Venlafaxine HCl [Venlafaxine HCl ER] 225 mg PO DAILY Discharge Medication List Gabapentin [Neurontin] 600 mg PO TID 01/27/16 [History] Levothyroxine Sodium [Synthroid] 25 mcg PO DAILY 01/27/16 [History] Naproxen 500 mg PO Q12HR PRN 01/27/16 [History] QUEtiapine FUMARATE [SEROquel] 300 mg PO HS 01/27/16 [History] Butalb/APAP/Caff 50-325-40Mg [Fioricet 50-325-40] 1 tab PO Q8H PRN 03/08/18 [ History] Topiramate 50 mg PO BID 03/08/18 [History] Venlafaxine HCl [Venlafaxine HCl ER] 225 mg PO DAILY 03/08/18 [History] clonazePAM [KlonoPIN] 0.25 mg PO DAILY 03/08/18 [History] hydrOXYzine PAMOATE [Vistaril] 25 mg PO BID 03/08/18 [History] tiZANidine HCL 4 mg PO BID 03/08/18 [History] traMADol HCL [Ultram] 50 mg PO TID 03/08/18 [History] Ergocalciferol [Vitamin D2 (DRISDOL)] 50,000 unit PO Q7D #12 cap 03/13/18 [Rx] Vitamin A 8,000 unit PO DAILY #30 capsule 03/13/18 [Rx]
[2018-03-13 11:01] VITALS: BP 110/72; PULSE 61
== END 2018-03-13 11:16 | disposition home or self-care (01) ==
LOC: ORWHC2ENDO 08:28
PROVIDERS: ATTEND Surgery Plastic and Reconstructive Surgery
DX: K31.89 Other diseases of stomach and duodenum (principal); K29.50 Unspecified chronic gastritis without bleeding; K64.0 First degree hemorrhoids; K57.30 Diverticulosis of large intestine without perforation or abscess without bleeding; Z98.84 Bariatric surgery status; K44.9 Diaphragmatic hernia without obstruction or gangrene; M79.7 Fibromyalgia; Z86.73 Personal history of transient ischemic attack (TIA), and cerebral infarction without residual deficits; E07.9 Disorder of thyroid, unspecified; G89.29 Other chronic pain; M54.9 Dorsalgia, unspecified; F41.9 Anxiety disorder, unspecified; F32.9 Major depressive disorder, single episode, unspecified; F31.9 Bipolar disorder, unspecified; Z79.891 Long term (current) use of opiate analgesic; Z79.899 Other long term (current) drug therapy; Z79.890 Hormone replacement therapy; Z88.2 Allergy status to sulfonamides; Z91.018 Allergy to other foods
CPT/HCPCS: 88305; 45378; 43245; J2001; J2704; C1726; 43249

== ENCOUNTER → 2018-04-17 | Outpatient (CLI) | payer OTHER ==
[2018-04-17 16:07] VITALS: BMI 27.4
[2018-04-17 17:14] LABS: Anisocytosis Slight; HCT 33.9 % (34.0-46.0); HGB 10.5 gm/dL (11.4-16.0); Hypochromasia Moderate; MCH 23.9 pg (25.0-35.0); MCHC 30.9 g/dL (31.0-37.0); MCV 77.4 fL (80.0-100.0); Mean Platelet Volume 6.6; Microcytosis Slight; Platelet Count 333 k/uL (150-450); RBC 4.38 m/uL (3.80-5.40); WBC 6.1 k/uL (3.8-10.6)
[2018-04-17 17:21] LABS: INR 1.1 (<1.2); Partial Thromboplastin Time 26.7 sec (22.0-30.0); Prothrombin Time 10.9 sec (9.0-12.0)
[2018-04-17 17:29] LABS: ALT 23 U/L (9-52); AST 16 U/L (14-36); Albumin 4.1 g/dL (3.5-5.0); Alkaline Phosphatase 82 U/L (38-126); Anion Gap 9 mmol/L; Blood Urea Nitrogen 18 mg/dL (7-17); Calcium 9.1 mg/dL (8.4-10.2); Carbon Dioxide 24 mmol/L (22-30); Chloride 108 mmol/L (98-107); Cholesterol 190 mg/dL (<200); Glucose 86 mg/dL (74-99); HDL Cholesterol 46 mg/dL (40-60); LDL Cholesterol,Calculated 123 mg/dL (0-99); Phosphorus 3.9 mg/dL (2.5-4.5); Potassium 4.5 mmol/L (3.5-5.1); Sodium 141 mmol/L (137-145); Total Bilirubin 0.3 mg/dL (0.2-1.3); Triglycerides 107 mg/dL (<150)
[2018-04-17 18:35] VITALS: BP 110/60; PULSE 73; RESP 16; TEMP 98.4
[2018-04-18 00:34] LABS: Folate, Serum 5.7 ng/mL
[2018-04-18 00:38] LABS: Iron Saturation 5.56 (12.00-45.00)
[2018-04-18 00:44] LABS: Parathyroid Hormone Intact 87.9 pg/mL (14.0-72.0)
[2018-04-18 02:37] LABS: Hemoglobin A1C 5.6 % (4.0-6.0)
[2018-04-18 11:47] LABS: Zinc, Serum 73 ug/dL (60-130)
[2018-04-18 12:52] LABS: Vitamin B1 48 ug/L (38-122)
[2018-04-19 07:01] LABS: Vitamin A 32 ug/dL (38-106)
[2018-04-19 18:30] LABS: Selenium 102 mcg/L (63-160)
--- NOTE | 2018-07-09 13:19 | P.HPBAR ---
Bariatric H&P - History & Physicial H&P Date: 04/17/18 History & Physicial: Visit/CC: Patient initial contact: Initial weight: Initial weight in pounds: Height: Initial BMI: Last weight: Current weight: Current weight in pounds: Current BMI: [place] body weight (based on NIH guidelines): Excess body weight loss: The patient is a 48 year-old F who presents for Bariatric Assessment. HPI: She had her gastric bypass done in 2006 with highest weight of 305 pounds. Her lowest weight was 139 pounds. She reports troubles with her thyroid that just started last year. Her mother often gives her distress hence her weight gain. She reports severe skin infections of the thigh and abdomen. She reports chronic pain from her lower back. ABDOMEN: Pannus of the skin between 3 to 5 pounds. Has panniculitis. Pannus hangs over pubis 5 cm. SKIN: Moderate skin elastosis of the thighs and breast. PLAN: 1. Panniculectomy recommend 2. Nystatin powder for over 2+ years of treatment. 3. Thyroid medication with other medications is ill-advised Past Medical History Past Medical History: CVA/TIA, Fibromyalgia Additional Past Medical History / Comment(s): migraine, chronic back pain, patient states that she has had 3 strokes and has 40 spots on her brain. History of Any Multi-Drug Resistant Organisms: None Reported Past Surgical History: Section, Cholecystectomy Additional Past Surgical History / Comment(s): gastric bypass, ovarian, radiosequency hess to her back gavi Smoking Status: Never smoker Bariatric Checklist Checklist: Plan: Checklist: EGD: 1. Hiatal hernia: 2. H. Pylori: HgbA1c: Vitamin D: Smoking: Never smoker Primary care physician referral: Psychiatry clearance: Cardiology clearance: Sleep study: Diet journal: VTE risk score: VTE risk level: Rehab needs at discharge:
== END | disposition home or self-care (01) ==
LOC: BARWHC3 13:43
PROVIDERS: ATTEND Surgery Plastic and Reconstructive Surgery
DX: Z09 Encounter for follow-up examination after completed treatment for conditions other than malignant neoplasm (principal); E66.01 Morbid (severe) obesity due to excess calories; M79.3 Panniculitis, unspecified; D50.9 Iron deficiency anemia, unspecified; E21.1 Secondary hyperparathyroidism, not elsewhere classified; E89.1 Postprocedural hypoinsulinemia; K90.9 Intestinal malabsorption, unspecified; E55.9 Vitamin D deficiency, unspecified; K74.1 Hepatic sclerosis; N19 Unspecified kidney failure; K50.90 Crohn's disease, unspecified, without complications; Z88.2 Allergy status to sulfonamides; Z98.84 Bariatric surgery status; Z68.27 Body mass index [BMI] 27.0-27.9, adult
CPT/HCPCS: 36415; 80053; 80061; 82306; 82525; 82607; 82728; 82746; 83036; 83540; 83550; 83735; 83970; 84100; 84134; 84255; 84425; 84443; 84590; 84630; 85027; 85610; 85730; 99211

== ENCOUNTER → 2018-07-01 | Outpatient (CLI) | payer OTHER ==
[2018-07-01 16:16] LABS: Anisocytosis Slight; HCT 42.4 % (34.0-46.0); HGB 13.5 gm/dL (11.4-16.0); MCH 29.8 pg (25.0-35.0); MCHC 31.9 g/dL (31.0-37.0); MCV 93.4 fL (80.0-100.0); Mean Platelet Volume 6.7; Platelet Count 283 k/uL (150-450); RBC 4.54 m/uL (3.80-5.40); RDW 19.2 % (11.5-15.5); WBC 7.3 k/uL (3.8-10.6)
== END ==
LOC: LABPAT 15:24
PROVIDERS: ATTEND Surgery Plastic and Reconstructive Surgery
DX: Z01.812 Encounter for preprocedural laboratory examination (principal); K44.9 Diaphragmatic hernia without obstruction or gangrene
CPT/HCPCS: 36415; 85027

== ENCOUNTER 2018-07-05 11:21 | Day surgery (SDC) | payer OTHER ==
[2018-07-03 09:04] VITALS: BMI 24.4
--- NOTE | 2018-07-03 11:05 | P.PN ---
Progress Note - Text Progress Note Date: 07/03/18 Patient called regarding history of abdominal pain. Patient has history of gastric ulcers. Hiatal hernia surgery canceled for upper endoscopy only.
--- NOTE | 2018-07-05 05:42 | P.GSHP ---
History of Present Illness H&P Date: 07/05/18 CHIEF COMPLAINT: GERD HISTORY OF PRESENT ILLNESS: The patient is a 48-year-old female who presents reports gastroesophageal reflux disease. Upper endoscopy was offered for further evaluation and management. PAST MEDICAL HISTORY: Please see list. PAST SURGICAL HISTORY: Please see list. MEDICATIONS: Please see list. ALLERGIES: Please see list. SOCIAL HISTORY: No illicit drug use FAMILY HISTORY: No reports of Crohn disease or ulcerative colitis. REVIEW OF ORGAN SYSTEMS: CONSTITUTIONAL: No reports of fevers or chills. GI: Denies any blood in stools or constipation. PHYSICAL EXAM: VITAL SIGNS: Stable GENERAL: Well-developed and pleasant in no acute distress. HEENT: No scleral icterus. Extraocular movements grossly intact. Moist buccal mucosa. NECK: Supple without lymphadenopathy. CHEST: Unlabored respirations. Equal bilateral excursions. CARDIOVASCULAR: Regular rate and rhythm. Distal 2+ pulses. ABDOMEN: Soft, nondistended. MUSCULOSKELETAL: No clubbing, cyanosis, or edema. ASSESSMENT: 1. Gastroesophageal reflux disease PLAN: 1. Recommend proceeding with an upper endoscopy Past Medical History Past Medical History: CVA/TIA, Fibromyalgia, Neurologic Disorder, Thyroid Disorder Additional Past Medical History / Comment(s): migraine, chronic back pain, patient states that she has had 3 strokes and has 40 spots on her brain. History of Any Multi-Drug Resistant Organisms: None Reported Past Surgical History: Bariatric Surgery, Section, Cholecystectomy Additional Past Surgical History / Comment(s): gastric bypass, LAPAROSCOPY WITH OVARAIN CYST, radioFequency hess to her back neRves, EGD, COLONOSCOPY Past Anesthesia/Blood Transfusion Reactions: No Reported Reaction Past Psychological History: Anxiety, Bipolar, Depression Smoking Status: Never smoker Past Alcohol Use History: Rare Past Drug Use History: None Reported - Past Family History Mother Family Medical History: Cancer Medications and Allergies Home Medications Medication Instructions Recorded Confirmed Type Gabapentin [Neurontin] 600 mg PO TID 01/27/16 07/03/18 History QUEtiapine FUMARATE [SEROquel] 300 mg PO HS 01/27/16 07/03/18 History Butalb/APAP/Caff 50-325-40Mg 1 tab PO Q8H PRN 03/08/18 07/03/18 History [Fioricet 50-325-40] Topiramate 50 mg PO BID 03/08/18 07/03/18 History Venlafaxine HCl [Venlafaxine HCl 225 mg PO DAILY 03/08/18 07/03/18 History ER] clonazePAM [KlonoPIN] 0.25 mg PO DAILY 03/08/18 07/03/18 History hydrOXYzine PAMOATE [Vistaril] 25 mg PO BID 03/08/18 07/03/18 History tiZANidine HCL 4 mg PO BID 03/08/18 07/03/18 History traMADol HCL [Ultram] 50 mg PO TID 03/08/18 07/03/18 History Ergocalciferol [Vitamin D2 50,000 unit PO Q7D #12 cap 03/13/18 07/03/18 Rx (DRISDOL)] Omeprazole 40 mg PO DAILY #30 capsule.dr 03/13/18 07/03/18 Rx Vitamin A 8,000 unit PO DAILY #30 capsule 03/13/18 07/03/18 Rx Levothyroxine Sodium [Synthroid] 50 mcg PO DAILY #30 tab 04/17/18 07/03/18 Rx Nystatin 100,000 Unit/gm Powd 1 applic TOPICAL BID #60 powder 04/17/18 07/03/18 Rx [Mycostatin Powder] Allergies Allergy/AdvReac Type Severity Reaction Status Date / Time Sulfa (Sulfonamide Allergy Swelling Verified 07/03/18 09:01 Antibiotics) sea-kelp Allergy Rash/Hives Uncoded 07/03/18 09:01
[2018-07-05] MEDS ORDERED: LIDOCAINE 1% 20 ML VIAL (10MG/ML) FOR IV START INTRADERMA ONE (11:41)
[2018-07-05 11:50] VITALS: RESP 16; TEMP 97
[2018-07-05] MEDS ORDERED: PROPOFOL 10 MG/ML 20 ML VIAL IV ONE (13:01)
[2018-07-05] MEDS ORDERED: LIDOCAINE 1% INJ 10MG/ML (20 ML MDV) ONE (13:01)
--- NOTE | 2018-07-05 13:25 | P.PCN ---
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 INDICATIONS: The patient is a 48-year-old female who presents with epigastric abdominal pain. Benefits and risks of the procedure were described. Informed consent was obtained. DESCRIPTION: The patient was brought into the endoscopy suite and laid in the left lateral decubitus position. After a timeout was confirmed, the procedure was initiated. An Olympus gastroscope was passed along the posterior oropharynx down to the distal esophagus where the squamocolumnar junction was unremarkable. The gastric pouch was entered. A chronic wide-based gastrojejunal marginal ulcer was encountered. No full-thickness injury was encountered. The GI tract was desufflated. The patient tolerated the procedure well. FINDINGS: Persistent chronic gastrojejunal ulceration encountered. Large gastric pouch Gastric pouch 36-42 cm from the incisors. RECOMMENDATIONS: Continue pump inhibitors indefinitely Plan - Discharge Summary New Discharge Prescriptions: No Action QUEtiapine FUMARATE [SEROquel] 300 mg PO HS Gabapentin [Neurontin] 600 mg PO TID hydrOXYzine PAMOATE [Vistaril] 25 mg PO BID Butalb/APAP/Caff 50-325-40Mg [Fioricet 50-325-40] 1 tab PO Q8H PRN PRN Reason: Pain tiZANidine HCL 4 mg PO BID clonazePAM [KlonoPIN] 0.25 mg PO DAILY Topiramate 50 mg PO BID traMADol HCL [Ultram] 50 mg PO TID Venlafaxine HCl [Venlafaxine HCl ER] 225 mg PO DAILY Ergocalciferol [Vitamin D2 (DRISDOL)] 50,000 unit PO Q7D #12 cap Vitamin A 8,000 unit PO DAILY #30 capsule Omeprazole 40 mg PO DAILY #30 capsule.dr Levothyroxine Sodium [Synthroid] 50 mcg PO DAILY #30 tab Nystatin 100,000 Unit/gm Powd [Mycostatin Powder] 1 applic TOPICAL BID #60 powder Discharge Medication List Gabapentin [Neurontin] 600 mg PO TID 01/27/16 [History] QUEtiapine FUMARATE [SEROquel] 300 mg PO HS 01/27/16 [History] Butalb/APAP/Caff 50-325-40Mg [Fioricet 50-325-40] 1 tab PO Q8H PRN 03/08/18 [ History] Topiramate 50 mg PO BID 03/08/18 [History] Venlafaxine HCl [Venlafaxine HCl ER] 225 mg PO DAILY 03/08/18 [History] clonazePAM [KlonoPIN] 0.25 mg PO DAILY 03/08/18 [History] hydrOXYzine PAMOATE [Vistaril] 25 mg PO BID 03/08/18 [History] tiZANidine HCL 4 mg PO BID 03/08/18 [History] traMADol HCL [Ultram] 50 mg PO TID 03/08/18 [History] Ergocalciferol [Vitamin D2 (DRISDOL)] 50,000 unit PO Q7D #12 cap 03/13/18 [Rx] Omeprazole 40 mg PO DAILY #30 capsule.dr 03/13/18 [Rx] Vitamin A 8,000 unit PO DAILY #30 capsule 03/13/18 [Rx] Levothyroxine Sodium [Synthroid] 50 mcg PO DAILY #30 tab 04/17/18 [Rx] Nystatin 100,000 Unit/gm Powd [Mycostatin Powder] 1 applic TOPICAL BID #60 powder 04/17/18 [Rx] Follow up Appointment(s)/Referral(s): Kellee Cannon MD [STAFF PHYSICIAN] - As Needed Patient Instructions/Handouts: *[facility] - (Anesthesia) Endoscopy Discharge Instructions, Upper Endoscopy (DC) Activity/Diet/Wound Care/Special Instructions: REST TODAY, ENCOURAGE FLUIDS AT HOME
[2018-07-05 13:30] VITALS: BP 102/68; PULSE 67
== END 2018-07-05 13:54 | disposition home or self-care (01) ==
LOC: ORWHC2ENDO 11:21
PROVIDERS: ATTEND Surgery Plastic and Reconstructive Surgery
DX: K28.7 Chronic gastrojejunal ulcer without hemorrhage or perforation (principal); M79.7 Fibromyalgia; E07.9 Disorder of thyroid, unspecified; G43.909 Migraine, unspecified, not intractable, without status migrainosus; M54.9 Dorsalgia, unspecified; G89.29 Other chronic pain; F41.9 Anxiety disorder, unspecified; F31.9 Bipolar disorder, unspecified; Z87.11 Personal history of peptic ulcer disease; Z98.84 Bariatric surgery status; Z79.890 Hormone replacement therapy; Z79.891 Long term (current) use of opiate analgesic; Z79.899 Other long term (current) drug therapy; Z88.2 Allergy status to sulfonamides; Z88.8 Allergy status to other drugs, medicaments and biological substances; Z90.49 Acquired absence of other specified parts of digestive tract; Z86.73 Personal history of transient ischemic attack (TIA), and cerebral infarction without residual deficits
CPT/HCPCS: 43235; J2001; J2704

== ENCOUNTER → 2019-01-20 | Outpatient (CLI) | payer OTHER ==
[2019-01-20 08:42] LABS: Basophils # (A) 0.1 k/uL (0-0.2); Basophils % (A) 1 %; Eosinophils # (A) 0.3 k/uL (0-0.7); Eosinophils % (A) 3 %; HCT 46.9 % (34.0-46.0); HGB 14.7 gm/dL (11.4-16.0); Lymphocytes # (A) 2.8 k/uL (1.0-4.8); Lymphocytes % (A) 28 %; MCH 30.2 pg (25.0-35.0); MCHC 31.3 g/dL (31.0-37.0); MCV 96.5 fL (80.0-100.0); Mean Platelet Volume 6.8; Monocytes # (A) 0.5 k/uL (0-1.0); Monocytes % (A) 5 %; Neutrophils # (A) 6.3 k/uL (1.3-7.7); Neutrophils % (A) 62 %; Platelet Count 294 k/uL (150-450); RBC 4.86 m/uL (3.80-5.40); RDW 13.5 % (11.5-15.5); WBC 10.1 k/uL (3.8-10.6)
[2019-01-20 17:23] LABS: Albumin 4.1 g/dL (3.80-4.90); Albumin/Globulin Ratio 2.16 (1.60-3.17); Anion Gap 9.4 mmol/L (4.00-12.00); Calcium 8.7 mg/dL (8.7-10.3); Carbon Dioxide 24.6 mmol/L (21.6-31.8); Globulin 1.9 g/dL (1.6-3.3); Potassium 3.9 mmol/L (3.5-5.5); Total Bilirubin 0.4 mg/dL (0.2-1.2)
[2019-01-20 17:30] LABS: Vitamin D 25 Hydroxy 19.9 ng/mL (30.0-100.0)
== END ==
LOC: LABWHC1 08:14
PROVIDERS: ATTEND Nurse Practitioner Acute Care
DX: E55.9 Vitamin D deficiency, unspecified (principal); M46.40 Discitis, unspecified, site unspecified
CPT/HCPCS: 36415; 80053; 82306; 82607; 84207; 85025

== ENCOUNTER → 2019-02-17 | Outpatient (CLI) | payer OTHER ==
--- NOTE | 2019-02-17 15:42 | US ---
EXAMINATION TYPE: US pelvic complete DATE OF EXAM: 02/17/2019 COMPARISON: Ultrasound 07/23/2017 CLINICAL HISTORY: 48-year-old female R10.2 Pelvic pain. Intermittent pelvic pain, pain during interco urse, 1, para 1, hysterectomy 2016 TECHNIQUE: Transabdominal sonographic images of the pelvis were acquired. Date of LMP: 2015 FINDINGS: EXAM MEASUREMENTS: Uterus: surgically absent Right Ovary: 5.5 x 4.5 x 4.5 cm Left Ovary: 6.2 x 3.9 x 4.8 cm 1. Uterus: surgically absent 2. Endometrium: surgically absent 3. Right Ovary: 3.1 x 4.0 x 3.5cm cystic area 4. Left Ovary: 2 cystic areas with larger measuring 3.7 x 3.5 x 3.3cm and smaller measuring 3.4 x 2. 2 x 1.5cm . The largest was 3.0 cm back in 07/23/2017. 5. Bilateral Adnexa: wnl 6. Posterior cul-de-sac: wnl IMPRESSION: 1. Status post hysterectomy. 2. Bilateral ovarian cysts measuring up to 4.0 cm on the right. There are 2 dominant cysts on the lef t measuring up to 3.7 and 2.4 cm. The largest measured back in 2016 was 2.0 cm. Findings may represen t dominant follicles/functional cysts. Consider follow-up in 6-8 weeks to assess for resolution.
[2019-02-17 18:58] LABS: DHEA Sulfate 61.8 ug/dL (26.0-430.0)
== END | disposition home or self-care (01) ==
LOC: RADUSWWP 13:33
PROVIDERS: ATTEND Obstetrics & Gynecology
DX: N83.201 Unspecified ovarian cyst, right side (principal); N83.202 Unspecified ovarian cyst, left side; Z90.710 Acquired absence of both cervix and uterus
CPT/HCPCS: 76856; 82627; 82670; 83001; 83002; 84146; 84403

== ENCOUNTER → 2019-03-25 | Outpatient (CLI) | payer OTHER ==
[2019-03-25 16:49] LABS: Basophils # (A) 0.1 k/uL (0-0.2); Basophils % (A) 1 %; Eosinophils # (A) 0.2 k/uL (0-0.7); Eosinophils % (A) 2 %; HCT 51.7 % (34.0-46.0); HGB 16.2 gm/dL (11.4-16.0); Lymphocytes # (A) 1.6 k/uL (1.0-4.8); Lymphocytes % (A) 20 %; MCH 30.9 pg (25.0-35.0); MCHC 31.4 g/dL (31.0-37.0); MCV 98.7 fL (80.0-100.0); Monocytes # (A) 0.3 k/uL (0-1.0); Monocytes % (A) 3 %; Neutrophils # (A) 5.9 k/uL (1.3-7.7); Neutrophils % (A) 73 %; Platelet Count 292 k/uL (150-450); RBC 5.24 m/uL (3.80-5.40); RDW 13.3 % (11.5-15.5); WBC 8.1 k/uL (3.8-10.6)
[2019-03-25 16:57] LABS: African American GFR (CKD) >90 (>60 ml/min/1.73 sqM); Anion Gap 12 mmol/L; Blood Urea Nitrogen 14 mg/dL (7-17); Calcium 9.7 mg/dL (8.4-10.2); Carbon Dioxide 21 mmol/L (22-30); Chloride 111 mmol/L (98-107); Glucose 75 mg/dL (74-99); Potassium 4.6 mmol/L (3.5-5.1); Sodium 144 mmol/L (137-145)
== END | disposition home or self-care (01) ==
LOC: LABWHC1 15:43
PROVIDERS: ATTEND Obstetrics & Gynecology
DX: Z01.812 Encounter for preprocedural laboratory examination (principal)
CPT/HCPCS: 36415; 80048; 85025

== ENCOUNTER 2019-04-01 05:59 | Inpatient (IN) | payer OTHER ==
--- NOTE | 2019-03-29 12:18 | P.HPOB ---
History of Present Illness H&P Date: 03/29/19 Chief Complaint: Pelvic pain Patient is a 48-year-old female with long history of pelvic pain. She was told she had PCO [place]. She has since lost a lot of weight and despite this she has continued to have pain and her cycles have become worsened. She describes pain as sharp and stabbing in nature and other than the hot bath nothing seems to help her pain. She had a previous section and hysterectomy she is requesting removal of both ovaries to eliminate her pain. She does have ultrasound showing 2 large cysts on left ovary and one on the right ovary. Due to her history she is undergoing exploratory laparotomy with BSO. Risks/benefits/alternatives were reviewed with the patient in detail including but not limited to bleeding and infection, damage to bladder, damage to bowel, vascular injuries, nerve injuries, ureteral damage. Potential need for further surgery. Potentially we're unable to get all the ovaries out. Also did review in great detail that there is a chance that she left shortened life expectancy due to removal of ovaries prior to the age of 52. Ultrasound did show bilateral ovarian cysts measuring 4 cm on the left and another one that is 2 cm on the right and they seem to be enlarging since prior ultrasound 2 years ago. I did explain to her that it is entirely possible that this procedure will not resolve her pain, that her pain may not have anything to do with the ovaries or ovarian cysts and that potentially her pain may persist long-term. If this was to happen I would definitely recommend referral to pelvic pain center for further treatment. I did offer options incl uding pelvic pain referral but she has declined. On physical exam vital signs are stable and afebrile. Heart regular, lungs clear, extremities without pain. Abdomen soft minimal tenderness. Pelvic exams generally unremarkable other than some tenderness on exam. Assessment pelvic pain. Plan exploratory laparotomy with bilateral salpingo-oophorectomy and removal of fallopian tubes as necessary. Past Medical History Past Medical History: CVA/TIA, Fibromyalgia, Neurologic Disorder, Thyroid Disorder Additional Past Medical History / Comment(s): migraine, chronic back pain, patient states that she has had 3 strokes and has 40 spots on her brain. hiatal hernia History of Any Multi-Drug Resistant Organisms: None Reported Past Surgical History: Bariatric Surgery, Section, Cholecystectomy Additional Past Surgical History / Comment(s): gastric bypass, LAPAROSCOPY WITH OVARAIN CYST, radioFequency hess to her back neRves, EGD, COLONOSCOPY Past Anesthesia/Blood Transfusion Reactions: No Reported Reaction Additional Past Anesthesia/Blood Transfusion Reaction / Comment(s): gets very shaky when coming out of it Smoking Status: Never smoker - Past Family History Mother Family Medical History: Cancer Medications and Allergies Home Medications Medication Instructions Recorded Confirmed Type Gabapentin [Neurontin] 600 mg PO TID 01/27/16 03/26/19 History Butalb/APAP/Caff 50-325-40Mg 1 tab PO Q8H PRN 03/08/18 03/26/19 History [Fioricet 50-325-40] Topiramate 50 mg PO BID 03/08/18 03/26/19 History tiZANidine HCL 4 mg PO BID 03/08/18 03/26/19 History traMADol HCL [Ultram] 100 mg PO TID 03/08/18 03/26/19 History Nystatin 100,000 Unit/gm Powd 1 applic TOPICAL BID #60 powder 04/17/18 03/26/19 Rx [Mycostatin Powder] Omeprazole 40 mg PO DAILY #90 capsule. 07/05/18 03/26/19 Rx Cholecalciferol (Vitamin D3) 2,000 unit PO DAILY 03/26/19 03/26/19 History [Vitamin D3] Hydrocortisone Cream 1 applic TOPICAL BID 03/26/19 03/26/19 History [Hydrocortisone 2.5% Cream] Levothyroxine Sodium [Synthroid] 50 mcg PO MOTU 03/26/19 03/26/19 History Levothyroxine Sodium [Synthroid] 75 mcg PO SUWETHFRSA 03/26/19 03/26/19 History Meclizine [Antivert] 12.5 mg PO BID 03/26/19 03/26/19 History Multivitamins, Thera [Multivitamin 1 tab PO DAILY 03/26/19 03/26/19 History (formulary)] Naproxen 500 mg PO BID 03/26/19 03/26/19 History metroNIDAZOLE 0.75% CREAM 1 applic TOPICAL BID 03/26/19 03/26/19 History [Metrocream] Allergies Allergy/AdvReac Type Severity Reaction Status Date / Time Sulfa (Sulfonamide Allergy Swelling Verified 03/26/19 11:23 Antibiotics) sea-kelp Allergy Rash/Hives Uncoded 09/26/18 17:37 Exam Osteopathic Statement: *. No significant issues noted on an osteopathic structural exam other than those noted in the History and Physical/Consult.
[~2019-04-01 05:59] MED LIST changes: +DEXAMETHASONE SOD PHOSPHATE 10 MG/ML 1 ML VIAL IV ONE; +HYDROmorphone 0.5 MG/0.5 ML SYRINGE IVP PRN; -LACTATED RINGERS 1,000 ML IV SCH; +SCOPOLAMINE 1.5MG/72HR PATCH TRANSDERM ONE
[2019-04-01] MEDS ORDERED: LIDOCAINE 1% 20 ML VIAL (10MG/ML) FOR IV START INTRADERMA ONE (06:30)
[2019-04-01] MEDS: LACTATED RINGERS 1,000 ML IV SCH (06:34)
[2019-04-01] MEDS: ONDANSETRON 4 MG/2 ML VIAL IVP ONE ×2 (06:36→08:58)
[2019-04-01] MEDS: MIDAZOLAM 2 MG/2 ML VIAL IV PRN ×2 (07:16→07:19)
[2019-04-01] MEDS ORDERED: LIDOCAINE 1% INJ 10MG/ML (20 ML MDV) ONE (07:30)
[2019-04-01] MEDS ORDERED: GLYCOPYRROLATE 0.2 MG/ML 2 ML VIAL ONE (07:30)
[2019-04-01] MEDS ORDERED: PROPOFOL 10 MG/ML 20 ML VIAL IV ONE (07:30)
[2019-04-01] MEDS ORDERED: fentaNYL (PF) 50 MCG/ML 2 ML AMP ONE (07:30)
[2019-04-01] MEDS ORDERED: ePHEDrine SULFATE/0.9% NACL/PF 50 MG/5 ML SYRINGE IV ONE (07:30)
[2019-04-01] MEDS ORDERED: ROPIVACAINE 5 MG/ML 30 ML VIAL ONE (07:30)
[2019-04-01] MEDS ORDERED: NEOSTIGMINE 1 MG/ML 10 ML VIAL ONE (07:30)
[2019-04-01] MEDS ORDERED: ROCURONIUM BROMIDE 10 MG/ML 10 ML VIAL IV ONE (07:30)
[2019-04-01] MEDS ORDERED: KETOROLAC 30 MG/ML 1 ML VIAL ONE (07:30)
--- NOTE | 2019-04-01 08:13 | P.ANPRN ---
Procedure Note - Anesthesia - Nerve Block Performed Bilateral Transversus Abdominis Single Time Out Performed: Yes Date of Procedure: 04/01/19 Procedure Start Time: :15 Procedure Stop Time: :25 Location of Patient Procedure: PreOp Indication: Acute Post-Operative Pain, Requested by physician Sedation Type: Sedate with meaningful contact maintained Preparation: Sterile Prep, Sterile Dressing Position: Supine Catheter: None Needle Types: Pajunk Needle Gauge: 20 Technique: Ultrasound Injectate: Other (see comment) (Ropivacaine 0.25% 25 ml per side) Blood Aspirated: No Pain Paresthesia on Injection Noted: No Resistance on Injection: Normal Events: Uneventful and Well Tolerated
[2019-04-01] MEDS ORDERED: KETOROLAC 30 MG/ML 1 ML VIAL IVP PRN (08:36)
[2019-04-01] MEDS ORDERED: SIMETHICONE 80 MG CHEWABLE PO PRN (08:36)
[2019-04-01] MEDS ORDERED: ONDANSETRON 4 MG/2 ML VIAL IVP PRN (08:36)
[2019-04-01] MEDS ORDERED: HYDROmorphone PCA 10 MG/50 ML BAG IV PRN (08:38)
[2019-04-01] MEDS ORDERED: NALOXONE 0.4 MG/ML 1 ML VIAL IV PRN (08:38)
--- NOTE | 2019-04-01 08:42 | P.OP ---
Date of Procedure: 04/01/19 Preoperative Diagnosis: Pelvic pain Postoperative Diagnosis: Same with adhesion of left ovary Procedure(s) Performed: Exploratory laparotomy with bilateral salpingo-oophorectomy Anesthesia: TAMRA Surgeon: Jarett Clemons Desk Interviewer #1: Solo Uriostegui Estimated Blood Loss (ml): 20 IV fluids (ml): 600 Urine output (ml): 100 Pathology: other (Bilateral ovaries and tubes) Condition: stable Disposition: floor Operative Findings: Adhesion of the left ovary to the bowel on the tight adhesion no other abnormalities noted cyst that were present on ultrasound had resolved the rest of the pelvis and abdomen was unremarkable Description of Procedure: Patient was taken to the operating suite where a general anesthetic was found be adequate. She was prepped and draped in normal sterile fashion and placed in dorsal supine position. Initially a Pfannenstiel skin incision was made this incision was then carried through to underlying layer of the fascia was second knife. Fascia was then nicked in the midline and this opening was extended laterally with Daily scissors. Superior and inferior aspect of this incision were then grasped tented up and bluntly and sharply dissected off the rectus muscles. Rectus muscle then divided the midline and sharp dissection the peritoneum was done. This opening was then extended superiorly and inferiorly with good visualization of both bowel bladder. A self-retaining retractor was then inserted and the patient placed in steep Trendelenburg position. Bowels packed out of the operative field with 3 are her blade was placed. Observations pelvis were then done. Left ovary was noted to have 1 adhesion to the bowel it was lysed. Once is accomplished left ovary was elevated with a [place] and Flako clamps then used to clamp behind in the infundibular pelvic ligament area and across the ovary in a stepwise fashion. Tissues clamped cut and tied until the ovary was removed. Right ovary was then instilled fashion excised. Pelvis was then irrigated. Inspection of the pelvis did not reveal any other abnormalities changes. The bowel and appendiceal area looked normal. Once completed all incidents were removed and and the peritoneum was reapproximated with 0 Vicryl suture. Once this was accomplished fascial layer was closed with 0 Vicryl suture. One layer of 3-0 Vicryl was placed in deep subcuticular tissues to reapproximate the skin the skin was then closed with 3-0 Vicryl subcuticular. Sponge, lap, needle counts were all correct 2. Patient was then taken to the recovery room in stable and satisfactory condition..
[2019-04-01] MEDS ORDERED: diphenhydrAMINE 50 MG/ML 1 ML VIAL IVP ONE (09:02)
[2019-04-01 10:27] VITALS: BMI 26.5
[2019-04-01 16:59] LABS: Amorphous Sediment,Urine Rare /hpf; Appearance,Urine Turbid (Clear); Bacteria,Urine Many /hpf; Bilirubin,Urine Negative (Negative); Blood,Urine Large (Negative); Color,Urine Light Orange; Glucose,Urine (UA) Negative (Negative); Ketones,Urine 1+ (Negative); Leukocyte Esterase,Urine Moderate (Negative); Mucus,Urine Many /hpf; Nitrite,Urine Negative (Negative); PH, Urine 5.5 (5.0-8.0); Protein,Urine 2+ (Negative); RBC,Urine 88 /hpf (0-5); Specific Gravity,Urine 1.029 (1.001-1.035)
[2019-04-01] MEDS: SENNOSIDES-DOCUSATE SODIUM 1 EACH TAB PO SCH (20:20)
[2019-04-01] MEDS: GABAPENTIN 300 MG CAP PO SCH (21:50)
[2019-04-02] MEDS: LEVOTHYROXINE 75 MCG TAB PO SCH (08:16)
[2019-04-02] MEDS: GABAPENTIN 300 MG CAP PO SCH ×3 (09:18→22:24)
[2019-04-02] MEDS: PANTOPRAZOLE 40 MG TABLET PO SCH (09:19)
[2019-04-02] MEDS: SENNOSIDES-DOCUSATE SODIUM 1 EACH TAB PO SCH ×2 (09:21→22:24)
--- NOTE | 2019-04-02 09:41 | P.PN ---
Progress Note - Text Progress Note Date: 04/02/19 Postop day 1. Patient is seen and evaluated. She relates that her pain is still relatively significant. She has a long history of pain medicine use and is seeing a neurologist for pain management. We'll speak with them today to try and better define what may be try to get her pain improved. Otherwise her vital signs are stable and afebrile. Heart regular, lungs clear, extremities without pain. Abdomen is soft incisions intact. Bowel sounds are noted. She does have clear yellow urine and will plan to remove Zaragoza catheter today and continue IV antibiotics through today switching over to oral antibiotics tomorrow for suspected bladder infection.
[2019-04-02] MEDS ORDERED: tiZANidine 4 MG TAB PO PRN (12:31)
--- NOTE | 2019-04-02 12:34 | P.PN ---
Progress Note - Text Progress Note Date: 04/02/19 Overall doing well this afternoon. 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 also restarted naprosyn following stopping of toradol. all questions answered. she is aware that these changes are at the direction of her neurologist whom holds her pain contract. will ambulate more this afternoon and advance diet as tolerated
[2019-04-02] MEDS: HYDROmorphone 0.5 MG/0.5 ML SYRINGE IVP PRN ×2 (14:59→20:26)
[2019-04-02] MEDS: traMADol 50 MG TAB PO SCH ×3 (17:46→22:24)
[2019-04-02] MEDS: CEPHALEXIN 500 MG CAP PO SCH ×2 (17:47→22:24)
[2019-04-02] MEDS: LACTATED RINGERS 1,000 ML IV SCH (21:39)
[2019-04-02] MEDS: NAPROXEN 250 MG TAB PO SCH (22:23)
[2019-04-03] MEDS: HYDROmorphone 0.5 MG/0.5 ML SYRINGE IVP PRN ×4 (00:20→21:49)
[2019-04-03] MEDS: LEVOTHYROXINE 75 MCG TAB PO SCH (06:20)
[2019-04-03] MEDS: CEPHALEXIN 500 MG CAP PO SCH ×4 (08:02→22:03)
[2019-04-03] MEDS: GABAPENTIN 300 MG CAP PO SCH ×3 (08:02→22:03)
[2019-04-03] MEDS: SENNOSIDES-DOCUSATE SODIUM 1 EACH TAB PO SCH ×2 (08:02→20:06)
[2019-04-03] MEDS: traMADol 50 MG TAB PO SCH ×4 (08:02→22:03)
[2019-04-03] MEDS: PANTOPRAZOLE 40 MG TABLET PO SCH (08:02)
--- NOTE | 2019-04-03 09:01 | P.PN ---
Progress Note - Text Progress Note Date: 04/03/19 Patient is doing very well postop day 2. She is able to ambulate, void and she is passing flatus. Vital signs are stable and afebrile. Heart regular, lungs clear, extremities without pain. Abdomen is soft her incision is clean dry and intact. Assessment postop day 2. Plan continue care with expectation for discharge to home tomorrow. We'll restart meclizine and topimate per her request
[2019-04-03] MEDS: MECLIZINE 12.5 MG TAB PO SCH ×2 (09:45→20:07)
[2019-04-03] MEDS: NAPROXEN 250 MG TAB PO SCH ×2 (09:45→20:07)
[2019-04-03] MEDS: TOPIRAMATE 25 MG TAB PO SCH ×2 (09:45→20:06)
[2019-04-04] MEDS: HYDROmorphone 0.5 MG/0.5 ML SYRINGE IVP PRN (03:54)
[2019-04-04] MEDS: LEVOTHYROXINE 75 MCG TAB PO SCH (06:16)
[2019-04-04 07:31] VITALS: RESP 16
--- NOTE | 2019-04-04 08:58 | P.DS ---
Providers Date of admission: 04/01/19 05:59 Expected date of discharge: 04/04/19 Attending physician: Jarett Clemons Primary care physician: Esvin Cheatham Hospital Course: Patient is seen and evaluated postop day 3. She relates that yesterday she had an episode when she was in the shower that the incision inserted to bleed and she was concerned about separation of the incision however, and seeing her today there is no incision separation I can the tach incision appears intact completely and does have's both subcuticularly and stitches in the under the skin layer of the subcutaneous tissues this further actually 2 layers of suture within that tissue space holding it together. We'll plan to have nurses place Steri-Strips prior to her being discharged this is a precaution. She is aware to wash her incision with also poor at least twice a day and she'll follow me in 1 week for reevaluation. She also needs to follow up with Dr. Bender for reevaluation of her pain medications as I can only provided few days work the pain medication for her. Otherwise her vital signs are stable and afebrile. Heart regular, lungs clear, extremities without pain. Abdomen soft nontender with bowel sounds noted. Assessment postop day 3. Plan discharged home follow up with me in 1 week. All the questions were answered for her and she is stable for discharge at this time. Patient Condition at Discharge: Good Plan - Discharge Summary Discharge Rx Participant: Yes New Discharge Prescriptions: New Cephalexin [Keflex] 500 mg PO Q6HR 3 Days #12 cap traMADol HCL [Ultram] 50 mg PO Q4HR PRN 3 Days #18 tab PRN Reason: Pain No Action Butalb/APAP/Caff 50-325-40Mg [Fioricet 50-325-40] 1 tab PO Q8H PRN PRN Reason: Pain tiZANidine HCL 4 mg PO BID Topiramate 50 mg PO BID traMADol HCL [Ultram] 100 mg PO TID Nystatin 100,000 Unit/gm Powd [Mycostatin Powder] 1 applic TOPICAL BID #60 powder Omeprazole 40 mg PO DAILY #90 capsule. Levothyroxine Sodium [Synthroid] 50 mcg PO MOTU metroNIDAZOLE 0.75% CREAM [Metrocream] 1 applic TOPICAL BID Hydrocortisone Cream [Hydrocortisone 2.5% Cream] 1 applic TOPICAL BID Multivitamins, Thera [Multivitamin (formulary)] 1 tab PO DAILY Cholecalciferol (Vitamin D3) [Vitamin D3] 2,000 unit PO DAILY Naproxen 500 mg PO BID Levothyroxine Sodium [Synthroid] 75 mcg PO SUWETHFRSA Meclizine [Antivert] 12.5 mg PO BID Gabapentin 600 mg PO TID Discharge Medication List Butalb/APAP/Caff 50-325-40Mg [Fioricet 50-325-40] 1 tab PO Q8H PRN 03/08/18 [History] Topiramate 50 mg PO BID 03/08/18 [History] tiZANidine HCL 4 mg PO BID 03/08/18 [History] traMADol HCL [Ultram] 100 mg PO TID 03/08/18 [History] Nystatin 100,000 Unit/gm Powd [Mycostatin Powder] 1 applic TOPICAL BID #60 powder 04/17/18 [Rx] Omeprazole 40 mg PO DAILY #90 capsule. 07/05/18 [Rx] Cholecalciferol (Vitamin D3) [Vitamin D3] 2,000 unit PO DAILY 03/26/19 [History] Hydrocortisone Cream [Hydrocortisone 2.5% Cream] 1 applic TOPICAL BID 03/26/19 [History] Levothyroxine Sodium [Synthroid] 50 mcg PO MOTU 03/26/19 [History] Levothyroxine Sodium [Synthroid] 75 mcg PO SUWETHFRSA 03/26/19 [History] Meclizine [Antivert] 12.5 mg PO BID 03/26/19 [History] Multivitamins, Thera [Multivitamin (formulary)] 1 tab PO DAILY 03/26/19 [History] Naproxen 500 mg PO BID 03/26/19 [History] metroNIDAZOLE 0.75% CREAM [Metrocream] 1 applic TOPICAL BID 03/26/19 [History] Gabapentin 600 mg PO TID 04/01/19 [History] Cephalexin [Keflex] 500 mg PO Q6HR 3 Days #12 cap 04/04/19 [Rx] traMADol HCL [Ultram] 50 mg PO Q4HR PRN 3 Days #18 tab 04/04/19 [Rx] Follow up Appointment(s)/Referral(s): Jarett Clemons DO [Doctor of Osteopathic Medicine] - 1 Week Mare Bender MD [Medical Doctor] - 1 Week Activity/Diet/Wound Care/Special Instructions: No heavy lifting, limit stairs and driving, and pelvic rest. If any high temperatures, heavy bleeding, or severe pain call my office Discharge Disposition: HOME SELF-CARE
[2019-04-04] MEDS: NAPROXEN 250 MG TAB PO SCH (09:22)
[2019-04-04] MEDS: SENNOSIDES-DOCUSATE SODIUM 1 EACH TAB PO SCH (09:22)
[2019-04-04] MEDS: TOPIRAMATE 25 MG TAB PO SCH (09:22)
[2019-04-04] MEDS: traMADol 50 MG TAB PO SCH ×2 (09:23→12:09)
[2019-04-04] MEDS: CEPHALEXIN 500 MG CAP PO SCH ×2 (09:23→12:09)
[2019-04-04] MEDS: GABAPENTIN 300 MG CAP PO SCH (09:23)
[2019-04-04] MEDS: MECLIZINE 12.5 MG TAB PO SCH (09:23)
[2019-04-04] MEDS: PANTOPRAZOLE 40 MG TABLET PO SCH (09:23)
[2019-04-04 15:25] VITALS: BP 98/62; PULSE 73; TEMP 97.9
== END 2019-04-04 16:09 | disposition home or self-care (01) | DRG 743 ==
LOC: 2ORMAIN 05:59 → 4FBP 09:01 → 4SSUR 04-02 20:03
PROVIDERS: ADMIT Obstetrics & Gynecology; ATTEND Obstetrics & Gynecology
PROC: 0UT70ZZ Resection of Bilateral Fallopian Tubes, Open Approach (ICD-10-PCS; 2019-04-01)
PROC: 0UT20ZZ Resection of Bilateral Ovaries, Open Approach (ICD-10-PCS; principal; 2019-04-01 07:30)
DX: N83.202 Unspecified ovarian cyst, left side (principal); N83.201 Unspecified ovarian cyst, right side; N30.90 Cystitis, unspecified without hematuria; M79.7 Fibromyalgia; E07.9 Disorder of thyroid, unspecified; G43.909 Migraine, unspecified, not intractable, without status migrainosus; G89.29 Other chronic pain; K44.9 Diaphragmatic hernia without obstruction or gangrene; M54.9 Dorsalgia, unspecified; Z86.73 Personal history of transient ischemic attack (TIA), and cerebral infarction without residual deficits; Z98.84 Bariatric surgery status; Z98.891 History of uterine scar from previous surgery; Z90.710 Acquired absence of both cervix and uterus; Z79.890 Hormone replacement therapy; Z79.899 Other long term (current) drug therapy; Z90.49 Acquired absence of other specified parts of digestive tract; Z88.2 Allergy status to sulfonamides; Z88.8 Allergy status to other drugs, medicaments and biological substances
CPT/HCPCS: 64488; 81001; 86850; 86900; 86901; 87086; 88305

== ENCOUNTER 2019-04-17 21:37 | Emergency (ER) | payer OTHER ==
[2019-04-17] MEDS ORDERED: SODIUM CHLORIDE 0.9% 1,000 ML IV STA (22:07)
--- NOTE | 2019-04-17 22:07 | ED ---
Syncope HPI - General Chief Complaint: Syncope Stated Complaint: Syncope Time Seen by Provider: 04/17/19 21:49 Source: patient, EMS Mode of arrival: EMS Limitations: no limitations - History of Present Illness Initial Comments: Patient is a 49-year-old female who presents to the emergency department today after an apparent syncopal episode at home. Patient reports she's been in her usual state of health she has been recovering nicely from her hysterectomy And the last month. Patient reports that today she was standing in her kitchen when she began to feel lightheaded. She states that she felt herself going down and was assisted to the ground by her family members. She states she could then hear them talking but believes they were talking about her daughter's. Patient states she thought she was just lying in bed and needed to wake up. EMS arrived on scene and transported the patient to the emergency department. - Related Data Home Medications Medication Instructions Recorded Confirmed Butalb/APAP/Caff 50-325-40Mg 1 tab PO Q8H PRN 03/08/18 04/17/19 [Fioricet 50-325-40] Topiramate 50 mg PO BID 03/08/18 04/17/19 tiZANidine HCL 4 mg PO BID 03/08/18 04/17/19 traMADol HCL [Ultram] 50 - 100 mg PO TID 03/08/18 04/17/19 Cholecalciferol (Vitamin D3) 2,000 unit PO DAILY 03/26/19 04/17/19 [Vitamin D3] Hydrocortisone Cream 1 applic TOPICAL BID 03/26/19 04/17/19 [Hydrocortisone 2.5% Cream] Levothyroxine Sodium [Synthroid] 50 mcg PO MOTU 03/26/19 04/17/19 Levothyroxine Sodium [Synthroid] 75 mcg PO SUWETHFRSA 03/26/19 04/17/19 Meclizine [Antivert] 12.5 mg PO BID 03/26/19 04/17/19 Multivitamins, Thera [Multivitamin 1 tab PO DAILY 03/26/19 04/17/19 (formulary)] Naproxen 500 mg PO BID 03/26/19 04/17/19 metroNIDAZOLE 0.75% CREAM 1 applic TOPICAL BID 03/26/19 04/17/19 [Metrocream] Gabapentin 600 mg PO TID 04/01/19 04/17/19 Estrogens, Conjugated [Premarin] 0.625 mg PO DAILY 04/17/19 04/17/19 Previous Rx's Medication Instructions Recorded Nystatin 100,000 Unit/gm Powd 1 applic TOPICAL BID #60 powder 04/17/18 [Mycostatin Powder] Omeprazole 40 mg PO DAILY #90 capsule. 07/05/18 Allergies Allergy/AdvReac Type Severity Reaction Status Date / Time Sulfa (Sulfonamide Allergy Swelling Verified 04/17/19 21:59 Antibiotics) sea-kelp Allergy Rash/Hives Uncoded 04/01/19 10:00 Review of Systems ROS Statement: Those systems with pertinent positive or pertinent negative responses have been documented in the HPI. ROS Other: All systems not noted in ROS Statement are negative. Past Medical History Past Medical History: CVA/TIA, Fibromyalgia, Neurologic Disorder, Thyroid Disorder Additional Past Medical History / Comment(s): migraine, chronic back pain, patient states that she has had 3 strokes and has 40 spots on her brain. hiatal hernia History of Any Multi-Drug Resistant Organisms: None Reported Past Surgical History: Bariatric Surgery, Section, Cholecystectomy Additional Past Surgical History / Comment(s): gastric bypass, LAPAROSCOPY WITH OVARAIN CYST, radioFequency hess to her back neRves, EGD, COLONOSCOPY Past Anesthesia/Blood Transfusion Reactions: No Reported Reaction Additional Past Anesthesia/Blood Transfusion Reaction / Comment(s): gets very shaky when coming out of it Past Psychological History: Anxiety, Bipolar, Depression Smoking Status: Never smoker Past Alcohol Use History: Rare Past Drug Use History: None Reported - Past Family History Mother Family Medical History: Cancer General Exam - General Exam Comments Initial Comments: Physical Exam GENERAL: Patient is well-developed and well-nourished. Patient is nontoxic and well- hydrated and is in no distress. HENT: Normocephalic, Atraumatic. EYES: PERRL, EOMI PULMONARY: Unlabored respirations. No audible rales rhonchi or wheezing was noted. CARDIOVASCULAR: There is a regular rate and rhythm without any murmurs gallops or rubs. ABDOMEN: Soft and nontender with normal bowel sounds. SKIN: Well-healing surgical incision lower abdomen : Deferred NEUROLOGIC: Patient is alert and oriented x3. Moving all extremities spontaneously Cranial nerve II through XII grossly intact MUSCULOSKELETAL: Normal extremities with adequate strength and full range of motion. No lower extremity swelling or edema. No calf tenderness. PSYCHIATRIC: Normal psychiatric evaluation Limitations: no limitations Course Vital Signs 04/17/19 04/17/19 04/18/19 21:41 23:22 01:07 Temperature 98.1 F 98.1 F Pulse Rate 63 54 L 62 Respiratory 20 20 20 Rate Blood Pressure 96/71 106/64 105/66 O2 Sat by Pulse 100 93 L 100 Oximetry EKG Findings - EKG Comments: EKG Findings:: EKG was obtained due to complaint of syncope, EKG was obtained at 2202, rate is 56 rhythm is sinus bradycardia there is a normal axis there are n ormal intervals, IL 132, QRS 78, QTC 41 there are no acute ST elevations or depressions there is no evidence of acute ischemia infarction or arrhythmia. Medical Decision Making - Medical Decision Making The patient was seen and evaluated history is obtained from the patient accepts a previously healthy 49 year old female with no cardiac history who had a apparent syncopal or near syncopal episode at home, patient is only a few weeks postoperative therefore PE has to be ruled out I find labs were obtained and resulted with some minor abnormalities, there is a drop in her hemoglobin from her preop hemoglobin however this is expected after a open hysterectomy Computed tomography scan with no signs of pulmonary embolism Patient is resting comfortably throughout her stay in the emergency department Results were discussed with the patient who expresses relief, all questions pertaining care were answered return parameters were discussed the patient was discharged home in stable condition. - Lab Data Result diagrams: 04/17/19 21:58 04/17/19 21:58 Lab Results 04/17/19 04/17/19 04/17/19 Range/Units 21:58 21:58 21:58 WBC 7.9 (3.8-10.6) k/uL RBC 4.05 (3.80-5.40) m/uL Hgb 12.7 D (11.4-16.0) gm/dL Hct 38.7 (34.0-46.0) % MCV 95.4 (80.0-100.0) fL MCH 31.3 (25.0-35.0) pg MCHC 32.8 (31.0-37.0) g/dL RDW 14.3 (11.5-15.5) % Plt Count 612 H D (150-450) k/uL Neutrophils % 73 % Lymphocytes % 18 % Monocytes % 4 % Eosinophils % 3 % Basophils % 1 % Neutrophils # 5.8 (1.3-7.7) k/uL Lymphocytes # 1.4 (1.0-4.8) k/uL Monocytes # 0.3 (0-1.0) k/uL Eosinophils # 0.3 (0-0.7) k/uL Basophils # 0.1 (0-0.2) k/uL PT 10.3 (9.0-12.0) sec INR 1.0 (<1.2) APTT 24.0 (22.0-30.0) sec Sodium 141 (137-145) mmol/L Potassium 4.1 (3.5-5.1) mmol/L Chloride 109 H (98-107) mmol/L Carbon Dioxide 22 (22-30) mmol/L Anion Gap 10 mmol/L BUN 19 H (7-17) mg/dL Creatinine 0.65 (0.52-1.04) mg/dL Est GFR (CKD-EPI)AfAm >90 (>60 ml/min/1.73 sqM) Est GFR (CKD-EPI)NonAf >90 (>60 ml/min/1.73 sqM) Glucose 92 (74-99) mg/dL Calcium 9.2 (8.4-10.2) mg/dL Total Bilirubin 0.8 (0.2-1.3) mg/dL AST 19 (14-36) U/L ALT 16 (9-52) U/L Alkaline Phosphatase 94 (38-126) U/L Troponin I (0.000-0.034) ng/mL Total Protein 6.6 (6.3-8.2) g/dL Albumin 3.8 (3.5-5.0) g/dL Urine Color Urine Appearance (Clear) Urine pH (5.0-8.0) Ur Specific [place] (1.001-1.035) Urine Protein (Negative) Urine Glucose (UA) (Negative) Urine Ketones (Negative) Urine Blood (Negative) Urine Nitrite (Negative) Urine Bilirubin (Negative) Urine Urobilinogen (<2.0) mg/dL Ur Leukocyte Esterase (Negative) Urine RBC (0-5) /hpf Urine WBC (0-5) /hpf Ur Squamous Epith Cells (0-4) /hpf Urine Mucus (None) /hpf 04/17/19 04/17/19 Range/Units 21:58 23:17 WBC (3.8-10.6) k/uL RBC (3.80-5.40) m/uL Hgb (11.4-16.0) gm/dL Hct (34.0-46.0) % MCV (80.0-100.0) fL MCH (25.0-35.0) pg MCHC (31.0-37.0) g/dL RDW (11.5-15.5) % Plt Count (150-450) k/uL Neutrophils % % Lymphocytes % % Monocytes % % Eosinophils % % Basophils % % Neutrophils # (1.3-7.7) k/uL Lymphocytes # (1.0-4.8) k/uL Monocytes # (0-1.0) k/uL Eosinophils # (0-0.7) k/uL Basophils # (0-0.2) k/uL PT (9.0-12.0) sec INR (<1.2) APTT (22.0-30.0) sec Sodium (137-145) mmol/L Potassium (3.5-5.1) mmol/L Chloride (98-107) mmol/L Carbon Dioxide (22-30) mmol/L Anion Gap mmol/L BUN (7-17) mg/dL Creatinine (0.52-1.04) mg/dL Est GFR (CKD-EPI)AfAm (>60 ml/min/1.73 sqM) Est GFR (CKD-EPI)NonAf (>60 ml/min/1.73 sqM) Glucose (74-99) mg/dL Calcium (8.4-10.2) mg/dL Total Bilirubin (0.2-1.3) mg/dL AST (14-36) U/L ALT (9-52) U/L Alkaline Phosphatase (38-126) U/L Troponin I <0.012 (0.000-0.034) ng/mL Total Protein (6.3-8.2) g/dL Albumin (3.5-5.0) g/dL Urine Color Yellow Urine Appearance Cloudy H (Clear) Urine pH 6.0 (5.0-8.0) Ur Specific [place] 1.022 (1.001-1.035) Urine Protein Trace H (Negative) Urine Glucose (UA) Negative (Negative) Urine Ketones Negative (Negative) Urine Blood Negative (Negative) Urine Nitrite Negative (Negative) Urine Bilirubin Negative (Negative) Urine Urobilinogen 6.0 (<2.0) mg/dL Ur Leukocyte Esterase Negative (Negative) Urine RBC 2 (0-5) /hpf Urine WBC 5 (0-5) /hpf Ur Squamous Epith Cells 10 H (0-4) /hpf Urine Mucus Many H (None) /hpf Disposition Clinical Impression: Fainting spell Disposition: HOME SELF-CARE Condition: Stable Instructions (If sedation given, give patient instructions): Syncope (ED) Is patient prescribed a controlled substance at d/c from ED?: No Referrals: Esvin Cheatham MD [Primary Care Provider] - 1-2 days Jarett Clemons DO [Doctor of Osteopathic Medicine] - 1-2 days
[2019-04-17 22:13] VITALS: RESP 20; TEMP 98.1
[2019-04-17 22:22] LABS: Basophils # (A) 0.1 k/uL (0-0.2); Basophils % (A) 1 %; Eosinophils # (A) 0.3 k/uL (0-0.7); Eosinophils % (A) 3 %; HCT 38.7 % (34.0-46.0); Lymphocytes # (A) 1.4 k/uL (1.0-4.8); Lymphocytes % (A) 18 %; MCH 31.3 pg (25.0-35.0); MCHC 32.8 g/dL (31.0-37.0); MCV 95.4 fL (80.0-100.0); Monocytes # (A) 0.3 k/uL (0-1.0); Monocytes % (A) 4 %; Neutrophils # (A) 5.8 k/uL (1.3-7.7); Neutrophils % (A) 73 %; RBC 4.05 m/uL (3.80-5.40); RDW 14.3 % (11.5-15.5); WBC 7.9 k/uL (3.8-10.6)
[2019-04-17 22:25] LABS: HGB 12.7 gm/dL (11.4-16.0); Platelet Count 612 k/uL (150-450)
[2019-04-17 22:26] LABS: Prothrombin Time 10.3 sec (9.0-12.0)
[2019-04-17 22:33] LABS: ALT 16 U/L (9-52); AST 19 U/L (14-36); African American GFR (CKD) >90 (>60 ml/min/1.73 sqM); Albumin 3.8 g/dL (3.5-5.0); Alkaline Phosphatase 94 U/L (38-126); Anion Gap 10 mmol/L; Blood Urea Nitrogen 19 mg/dL (7-17); Calcium 9.2 mg/dL (8.4-10.2); Carbon Dioxide 22 mmol/L (22-30); Chloride 109 mmol/L (98-107); Glucose 92 mg/dL (74-99); Potassium 4.1 mmol/L (3.5-5.1); Sodium 141 mmol/L (137-145); Total Bilirubin 0.8 mg/dL (0.2-1.3); Total Protein 6.6 g/dL (6.3-8.2)
--- NOTE | 2019-04-17 23:36 | XR ---
EXAM: XR Chest, 2 Views CLINICAL HISTORY: ITS.REASON XR Reason: syncope TECHNIQUE: Frontal and lateral views of the chest. COMPARISON: No relevant prior studies available. FINDINGS: Lungs: Unremarkable. No consolidation. Pleural space: Unremarkable. No pneumothorax. Heart: No suspicious enlargement. Mediastinum: Unremarkable. Bones/joints: No acute fracture. IMPRESSION: No acute findings.
[2019-04-17 23:44] LABS: Appearance,Urine Cloudy (Clear); Bilirubin,Urine Negative (Negative); Blood,Urine Negative (Negative); Color,Urine Yellow; Glucose,Urine (UA) Negative (Negative); Ketones,Urine Negative (Negative); Leukocyte Esterase,Urine Negative (Negative); Mucus,Urine Many /hpf; Nitrite,Urine Negative (Negative); Protein,Urine Trace (Negative); RBC,Urine 2 /hpf (0-5); Specific Gravity,Urine 1.022 (1.001-1.035); Squamous Epithelial Cell,Urine 10 /hpf (0-4); WBC,Urine 5 /hpf (0-5)
--- NOTE | 2019-04-17 23:57 | CT ---
EXAM: CT Head Without Intravenous Contrast CLINICAL HISTORY: ITS.REASON CT Reason: syncope TECHNIQUE: Axial computed tomography images of the head/brain without intravenous contrast. This CT exam was performed using one or more of the following dose reduction techniques: automated exposure control, adjustment of the mA and/or kV according to patient size, and/or use of iterative reconstruction technique. COMPARISON: No relevant prior studies available. FINDINGS: Brain: No hemorrhage. No edema. Ventricles: Unremarkable. No ventriculomegaly. Bones/joints: No acute fracture. Soft tissues: Unremarkable. Sinuses: No fluid levels. Mastoid air cells: Unremarkable as visualized. No mastoid effusion. IMPRESSION: No acute intracranial findings EXAM: CT Cervical Spine Without Intravenous Contrast CLINICAL HISTORY: ITS.REASON CT Reason: syncope TECHNIQUE: Axial computed tomography images of the cervical spine without intravenous contrast. This CT exam was performed using one or more of the following dose reduction techniques: automated exposure control, adjustment of the mA and/or kV according to patient size, and/or use of iterative reconstruction technique. COMPARISON: No relevant prior studies available. FINDINGS: Vertebrae: No acute fracture. Discs/spinal canal/neural foramina: No suspicious findings. Soft tissues: Unremarkable. IMPRESSION: No acute findings.
--- NOTE | 2019-04-18 | CT ---
EXAM: CT Angiography Chest Without And With Intravenous Contrast CLINICAL HISTORY: ITS.REASON CT Reason: Pain TECHNIQUE: Axial computed tomographic angiography images of the chest without and with intravenous contrast using pulmonary embolism protocol. This CT exam was performed using one or more of the following dose reduction techniques: automated exposure control, adjustment of the mA and/or kV according to patient size, and/or use of iterative reconstruction technique. 3D reconstructed images were created and reviewed. COMPARISON: No relevant prior studies available. FINDINGS: Pulmonary arteries: Unremarkable. No pulmonary embolism. Aorta: No suspicious findings. No thoracic aortic aneurysm. Lungs: Unremarkable. No mass. No consolidation. Pleural space: Unremarkable. No significant effusion. No pneumothorax. Heart: Unremarkable. No cardiomegaly. No significant pericardial effusion. No evidence of RV dysfunction. Bones/joints: No acute fracture. No dislocation. Soft tissues: Unremarkable. Lymph nodes: Unremarkable. No enlarged lymph nodes. IMPRESSION: Normal chest CTA. No pulmonary embolism.
[2019-04-18 01:08] VITALS: BP 105/66; PULSE 62
== END 2019-04-18 01:11 | disposition home or self-care (01) ==
LOC: EC 21:37
DX: R55 Syncope and collapse (principal); R42 Dizziness and giddiness; E07.9 Disorder of thyroid, unspecified; M79.7 Fibromyalgia; F31.9 Bipolar disorder, unspecified; Z79.890 Hormone replacement therapy; Z79.1 Long term (current) use of non-steroidal anti-inflammatories (NSAID); Z79.899 Other long term (current) drug therapy; Z88.2 Allergy status to sulfonamides; Z91.018 Allergy to other foods; Z98.84 Bariatric surgery status; Z86.73 Personal history of transient ischemic attack (TIA), and cerebral infarction without residual deficits
CPT/HCPCS: 99284; 96360; 96361 ×2; 36415; 93005; 80053; 84484; 85025; 85610; 85730; 81001; 71046; 72125; 70450; 71275; Q9967

== ENCOUNTER → 2019-05-07 | Day surgery (SDC) | payer OTHER ==
[2019-05-06 13:46] VITALS: BMI 26.0
[~2019-05-07] MED LIST changes: -DEXAMETHASONE SOD PHOSPHATE 10 MG/ML 1 ML VIAL IV ONE; +GLYCOPYRROLATE 0.2 MG/ML 2 ML VIAL ONE; -HYDROmorphone 0.5 MG/0.5 ML SYRINGE IVP PRN; +LACTATED RINGERS 1,000 ML IV SCH; +LIDOCAINE 1% 20 ML VIAL (10MG/ML) FOR IV START INTRADERMA ONE; +LIDOCAINE 1% INJ 10MG/ML (20 ML MDV) ONE; +PROPOFOL 10 MG/ML 20 ML VIAL IV ONE; -SCOPOLAMINE 1.5MG/72HR PATCH TRANSDERM ONE; +fentaNYL (PF) 50 MCG/ML 2 ML AMP ONE
--- NOTE | 2019-05-07 09:25 | P.GSHP ---
History of Present Illness H&P Date: 05/07/19 CHIEF COMPLAINT: GERD HISTORY OF PRESENT ILLNESS: The patient is a 49-year-old female who presents reports gastroesophageal reflux disease. Upper endoscopy was offered for further evaluation and management. PAST MEDICAL HISTORY: Please see list. PAST SURGICAL HISTORY: Please see list. MEDICATIONS: Please see list. ALLERGIES: Please see list. SOCIAL HISTORY: No illicit drug use FAMILY HISTORY: No reports of Crohn disease or ulcerative colitis. REVIEW OF ORGAN SYSTEMS: CONSTITUTIONAL: No reports of fevers or chills. GI: Denies any blood in stools or constipation. PHYSICAL EXAM: VITAL SIGNS: Stable GENERAL: Well-developed and pleasant in no acute distress. HEENT: No scleral icterus. Extraocular movements grossly intact. Moist buccal mucosa. NECK: Supple without lymphadenopathy. CHEST: Unlabored respirations. Equal bilateral excursions. CARDIOVASCULAR: Regular rate and rhythm. Distal 2+ pulses. ABDOMEN: Soft, nondistended. MUSCULOSKELETAL: No clubbing, cyanosis, or edema. ASSESSMENT: 1. Gastroesophageal reflux disease PLAN: 1. Recommend proceeding with an upper endoscopy Past Medical History Past Medical History: CVA/TIA, Fibromyalgia, Neurologic Disorder, Thyroid Disorder Additional Past Medical History / Comment(s): migraine, chronic back pain, patient states that she has had 3 strokes and has 40 spots on her brain. hiatal hernia History of Any Multi-Drug Resistant Organisms: None Reported Past Surgical History: Bariatric Surgery, Section, Cholecystectomy, Hysterectomy Additional Past Surgical History / Comment(s): gastric bypass, LAPAROSCOPY WITH OVARAIN CYST, radioFequency hess to her back neRves, EGD, COLONOSCOPY Past Anesthesia/Blood Transfusion Reactions: No Reported Reaction Additional Past Anesthesia/Blood Transfusion Reaction / Comment(s): gets very shaky when coming out of it Smoking Status: Never smoker - Past Family History Mother Family Medical History: Cancer Medications and Allergies Home Medications Medication Instructions Recorded Confirmed Type Butalb/APAP/Caff 50-325-40Mg 1 tab PO Q8H PRN 03/08/18 05/06/19 History [Fioricet 50-325-40] Topiramate 50 mg PO BID 03/08/18 05/06/19 History tiZANidine HCL 4 mg PO BID 03/08/18 05/06/19 History traMADol HCL [Ultram] 50 - 100 mg PO TID 03/08/18 05/06/19 History Nystatin 100,000 Unit/gm Powd 1 applic TOPICAL BID #60 powder 04/17/18 05/06/19 Rx [Mycostatin Powder] Omeprazole 40 mg PO DAILY #90 capsule. 07/05/18 05/06/19 Rx Cholecalciferol (Vitamin D3) 2,000 unit PO DAILY 03/26/19 05/06/19 History [Vitamin D3] Hydrocortisone Cream 1 applic TOPICAL BID 03/26/19 05/06/19 History [Hydrocortisone 2.5% Cream] Levothyroxine Sodium [Synthroid] 50 mcg PO MOTU 03/26/19 05/06/19 History Levothyroxine Sodium [Synthroid] 75 mcg PO SUWETHFRSA 03/26/19 05/06/19 History Meclizine [Antivert] 12.5 mg PO BID 03/26/19 05/06/19 History Multivitamins, Thera [Multivitamin 1 tab PO DAILY 03/26/19 05/06/19 History (formulary)] metroNIDAZOLE 0.75% CREAM 1 applic TOPICAL BID 03/26/19 05/06/19 History [Metrocream] Gabapentin 600 mg PO TID 04/01/19 05/06/19 History Estrogens, Conjugated [Premarin] 0.625 mg PO DAILY 04/17/19 05/06/19 History Cyanocobalamin [Vitamin B-12 1,000 mcg SQ QMONTH 05/06/19 05/06/19 History Injection] Allergies Allergy/AdvReac Type Severity Reaction Status Date / Time Sulfa (Sulfonamide Allergy Swelling Verified 05/06/19 13:36 Antibiotics) sea-kelp Allergy Rash/Hives Uncoded 05/06/19 13:36
[2019-05-07 10:32] VITALS: TEMP 97.7
[2019-05-07 11:13] VITALS: RESP 18
[2019-05-07 11:39] VITALS: BP 114/72; PULSE 62
--- NOTE | 2019-05-07 11:45 | P.PCN ---
Date of Procedure: 05/07/19 Description of Procedure: PREOPERATIVE DIAGNOSIS: Dysphagia. History of gastrojejunal ulcers Epigastric abdominal pain POSTOPERATIVE DIAGNOSIS: Dysphagia. 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 SURGEON: Kellee Cannon MD ANESTHESIA: MAC. INDICATIONS: The patient is a 49-year-old female who presents with a history of dysphagia and gastrojejunal ulcers. Benefits and risks of the procedure were described. Informed consent was obtained. DESCRIPTION: The patient was brought into the endoscopy suite and laid in the left lateral decubitus position. After a timeout was confirmed, the procedure was initiated. An Olympus gastroscope was passed along the posterior oropharynx down to the distal esophagus where the squamocolumnar junction was unremarkable. The gastric pouch was entered. A gastrojejunal stricture of 15 mm was found as the adult gastroscope was 9.5 mm in size. A [employer] balloon dilator was placed through the scope. Final insufflation up to 20 mm was performed with a total of 2 minutes. The scope was advanced up to 60 cm from the incisors into the Ervin limb. The mucosa of the gastrojejunal anastomosis was intact. No chronic gastrojejunal marginal ulcer was encountered. No full-thickness injury was encountered. The GI tract was desufflated. The patient tolerated the procedure well. FINDINGS: Squamocolumnar junction unremarkable at 36 cm. Stricture of approximately 15 mm encountered. LA grade A erosive esophagitis No chronic gastrojejunal ulceration encountered. Successful balloon dilatation to 20 mm. RECOMMENDATIONS: Upper endoscopy as needed Continue proton pump inhibitor with any NSAID use Plan - Discharge Summary Discharge Rx Participant: Yes New Discharge Prescriptions: New Omeprazole 40 mg PO DAILY #90 capsule. No Action Butalb/APAP/Caff 50-325-40Mg [Fioricet 50-325-40] 1 tab PO Q8H PRN PRN Reason: Pain tiZANidine HCL 4 mg PO BID Topiramate 50 mg PO BID traMADol HCL [Ultram] 50 - 100 mg PO TID Nystatin 100,000 Unit/gm Powd [Mycostatin Powder] 1 applic TOPICAL BID #60 powder Omeprazole 40 mg PO DAILY #90 capsule. Levothyroxine Sodium [Synthroid] 50 mcg PO MOTU metroNIDAZOLE 0.75% CREAM [Metrocream] 1 applic TOPICAL BID Hydrocortisone Cream [Hydrocortisone 2.5% Cream] 1 applic TOPICAL BID Multivitamins, Thera [Multivitamin (formulary)] 1 tab PO DAILY Cholecalciferol (Vitamin D3) [Vitamin D3] 2,000 unit PO DAILY Levothyroxine Sodium [Synthroid] 75 mcg PO SUWETHFRSA Meclizine [Antivert] 12.5 mg PO BID Gabapentin 600 mg PO TID Estrogens, Conjugated [Premarin] 0.625 mg PO DAILY Cyanocobalamin [Vitamin B-12 Injection] 1,000 mcg SQ QMONTH Discharge Medication List Butalb/APAP/Caff 50-325-40Mg [Fioricet 50-325-40] 1 tab PO Q8H PRN 03/08/18 [History] Topiramate 50 mg PO BID 03/08/18 [History] tiZANidine HCL 4 mg PO BID 03/08/18 [History] traMADol HCL [Ultram] 50 - 100 mg PO TID 03/08/18 [History] Nystatin 100,000 Unit/gm Powd [Mycostatin Powder] 1 applic TOPICAL BID #60 powder 04/17/18 [Rx] Omeprazole 40 mg PO DAILY #90 capsule. 07/05/18 [Rx] Cholecalciferol (Vitamin D3) [Vitamin D3] 2,000 unit PO DAILY 03/26/19 [History] Hydrocortisone Cream [Hydrocortisone 2.5% Cream] 1 applic TOPICAL BID 03/26/19 [History] Levothyroxine Sodium [Synthroid] 50 mcg PO MOTU 03/26/19 [History] Levothyroxine Sodium [Synthroid] 75 mcg PO SUWETHFRSA 03/26/19 [History] Meclizine [Antivert] 12.5 mg PO BID 03/26/19 [History] Multivitamins, Thera [Multivitamin (formulary)] 1 tab PO DAILY 03/26/19 [History] metroNIDAZOLE 0.75% CREAM [Metrocream] 1 applic TOPICAL BID 03/26/19 [History] Gabapentin 600 mg PO TID 04/01/19 [History] Estrogens, Conjugated [Premarin] 0.625 mg PO DAILY 04/17/19 [History] Cyanocobalamin [Vitamin B-12 Injection] 1,000 mcg SQ QMONTH 05/06/19 [History] Omeprazole 40 mg PO DAILY #90 capsule. 05/07/19 [Rx] Follow up Appointment(s)/Referral(s): [facility] [NON-STAFF] - 05/14/19 Patient Instructions/Handouts: *[facility] - (Anesthesia) Endoscopy Discharge Instructions, Upper Endoscopy (DC), Esophageal Dilation (DC) Activity/Diet/Wound Care/Special Instructions: Diet as tolerated Discharge Disposition: HOME SELF-CARE
== END | disposition home or self-care (01) ==
LOC: ORWHC2ENDO 09:38
PROVIDERS: ATTEND Surgery Plastic and Reconstructive Surgery
DX: K91.89 Other postprocedural complications and disorders of digestive system (principal); R13.10 Dysphagia, unspecified; K21.9 Gastro-esophageal reflux disease without esophagitis; M79.7 Fibromyalgia; E07.9 Disorder of thyroid, unspecified; Z86.73 Personal history of transient ischemic attack (TIA), and cerebral infarction without residual deficits; G43.909 Migraine, unspecified, not intractable, without status migrainosus; G89.29 Other chronic pain; M54.9 Dorsalgia, unspecified; K44.9 Diaphragmatic hernia without obstruction or gangrene; Z90.49 Acquired absence of other specified parts of digestive tract; Z90.710 Acquired absence of both cervix and uterus; Z79.891 Long term (current) use of opiate analgesic; Z79.899 Other long term (current) drug therapy; Z79.890 Hormone replacement therapy; Z88.2 Allergy status to sulfonamides; Z91.013 Allergy to seafood
CPT/HCPCS: 43245; J2001; J3010; J2704; C1726

== ENCOUNTER → 2019-05-28 | Outpatient (CLI) | payer OTHER ==
[2019-05-28 14:00] VITALS: BP 116/77; PULSE 70; TEMP 98.3; BMI 25.9
--- NOTE | 2019-05-28 14:30 | P.PN ---
Subjective Progress Note Date: 05/28/19 HPI: She is looking into a panniculitis. Her highest weight was 345 pounds. She is 12 years out. ABDOMEN: Panniculitis MS: Redundant skin on the thigh STUDIES: CT reveiwed with severe redundant colon and diverticulosis ASSESSMENT: 1. Panniculitis 2. Excess skin of the thighs 3. Diverticulosis with severe constipation. PLAN: 1. Nystatin powder 2. Re-check bariatric labs 3. Panniculectomy 4. Recommend sigmoid colectomy DATE OF SERVICE: 04/17/2018 REASON FOR CONSULTATION: Initial bariatric evaluation. HISTORY OF PRESENT ILLNESS: Ching Kathleen is a 48-year-old female who had her gastric bypass done in 2006 with highest weight of 305 pounds. Her lowest weight was 139 pounds. She reports troubles with her thyroid that just started last year. Her mother often gives her distress hence her weight gain. She reports severe skin infections of the thigh and abdomen. She reports chronic pain from her lower back. Otherwise, she complains of moderate to severe panniculitis. At height of 5 feet 3.5 inches, her ideal body weight is 140 pounds. She comes in 157 pounds. Her highest weight was 305 pounds. Her body mass index highest was 53.3. Today her BMI is 27.5. She has lost 148 pounds lifetime. Percent excess weight loss is 90% PAST MEDICAL HISTORY: 1. Morbid obesity due to excess calories 2. Body mass index of 53.3, initial 3. Osteoarthritis of the knees. 4. Osteoarthritis of the lower back. 5. Fibromyalgia 6. Migraines 7. Vitamin D deficiency 8. Hypothyroidism 9. Panniculitis 10. Gastroesophageal reflux disease 11. Anxiety disorder 12. Depressive disorder 13. Previous TIA 14. Bipolar disorder PAST SURGICAL HISTORY: 1. section 2. Cholecystectomy 3. Radioablation of nerves HOME MEDICATIONS: ALLERGIES: Home Medications Medication Instructions Recorded Confirmed Type Gabapentin [Neurontin] 600 mg PO TID 01/27/16 07/05/18 History QUEtiapine FUMARATE [SEROquel] 300 mg PO HS 01/27/16 07/05/18 History Butalb/APAP/Caff 50-325-40Mg 1 tab PO Q8H PRN 03/08/18 07/05/18 History [Fioricet 50-325-40] Topiramate 50 mg PO BID 03/08/18 07/05/18 History Venlafaxine HCl [Venlafaxine HCl 225 mg PO DAILY 03/08/18 07/05/18 History ER] clonazePAM [KlonoPIN] 0.25 mg PO DAILY 03/08/18 07/05/18 History hydrOXYzine PAMOATE [Vistaril] 25 mg PO BID 03/08/18 07/05/18 History tiZANidine HCL 4 mg PO BID 03/08/18 07/05/18 History traMADol HCL [Ultram] 50 mg PO TID 03/08/18 07/05/18 History Ergocalciferol [Vitamin D2 50,000 unit PO Q7D #12 cap 03/13/18 07/05/18 Rx (DRISDOL)] Omeprazole 40 mg PO DAILY #30 capsule. 03/13/18 07/05/18 Rx Vitamin A 8,000 unit PO DAILY #30 capsule 03/13/18 07/05/18 Rx Levothyroxine Sodium [Synthroid] 50 mcg PO DAILY #30 tab 04/17/18 07/05/18 Rx Nystatin 100,000 Unit/gm Powd 1 applic TOPICAL BID #60 powder 04/17/18 07/05/18 Rx [Mycostatin Powder] Omeprazole 40 mg PO DAILY #90 capsule. 07/05/18 Rx Allergies Allergy/AdvReac Type Severity Reaction Status Date / Time Sulfa (Sulfonamide Allergy Swelling Verified 07/03/18 09:01 Antibiotics) sea-kelp Allergy Rash/Hives Uncoded 07/03/18 09:01 SOCIAL HISTORY: Denies past tobacco use. FAMILY HISTORY: No family history of ulcerative colitis disease or Crohn's disease. Family history of morbid obesity. No lupus in the family. No reports of stomach or esophageal cancer. REVIEW OF ORGAN SYSTEMS: CONSTITUTIONAL: At height of 5 feet 6.5 inches, her ideal body weight is 154 pounds. She comes in 319 pounds. Her highest weight was 345 pounds. Her body mass index highest was 55.0. Today her BMI is 50.9. She is 165 pounds overweight. HEENT: Denies any active troubles with vision or hearing. No troubles with swallowing. ENDOCRINE: No diabetes. Has hypothyroidism. CARDIOVASCULAR: No reports of palpitations or heart attacks or chest pain. RESPIRATORY: No daytime somnolence. No asthma. GI: Denies any bright red blood per rectum. No diarrhea. Noconstipation. MUSCULOSKELETAL: Has lower back pain and joint pain. Has osteoarthritis of the knees. NEURO: Has headaches. No seizure disorders. PSYCH: Has depression. No suicidal ideation. RHEUMATOLOGIC: No lupus. No rheumatoid arthritis. HEMATOLOGIC: Denies any abnormal bleeding or bruising. No personal history of DVTs. SKIN: No rash. No skin cancer. Has panniculitis PHYSICAL EXAM: VITAL SIGNS: Height 5 foot 3.5 inches, weight 157 pounds. BMI 27.5 Vital Signs Temp 98.4 F 04/17/18 15:35 Pulse 73 04/17/18 15:35 Resp 16 04/17/18 15:35 BP 110/60 04/17/18 15:35 Pulse Ox GENERAL: Well-developed in no acute distress. HEENT: No scleral icterus. Extraocular movements grossly intact. Hears conversational speech. No nasal drainage. NECK: Supple without lymphadenopathy. CHEST: Nonlabored respirations with equal bilateral excursions. CARDIOVASCULAR: Regular rate and regular rhythm. Distal 2+ pulses. MUSCULOSKELETAL: No clubbing, cyanosis. Gross strength 5/5 distal lower extremities. NEURO: No focal or lateralizing signs. Cranial nerves 2 through 12 grossly within normal limits. PSYCH: Appropriate affect. Alert and oriented to person, place and time. ABDOMEN: Pannus of the skin between 3 to 5 pounds. Has panniculitis. Pannus hangs over pubis 5 cm. Obese, soft, nontender, nondistended. SKIN: Moderate skin elastosis of the thighs and breast. Good skin turgor. Well perfused. ASSESSMENT: 1. Morbid obesity due to excess calories 2. Body mass index of 53.3, initial to 27.5 3. Osteoarthritis of the knees. 4. Osteoarthritis of the lower back. 5. Fibromyalgia 6. Migraines 7. Vitamin D deficiency 8. Hypothyroidism 9. Panniculitis 10. Gastroesophageal reflux disease 11. Anxiety disorder 12. Depressive disorder 13. Previous TIA 14. Bipolar disorder 15. Iron deficiency anemia 16. Vitamin D deficiency PLAN: 1. Panniculectomy recommend for history of panniculitis 2. Nystatin powder for over 2+ years of treatment. 3. Thyroid medication with other medications is ill-advised 4. Benefits and risks of panniculectomy reviewed. 5. Risk of flap failure, need for further surgery addressed. Panniculectomy packet dispensed. 6. Inpatient hospitalization more than 2 nights anticipated. 7. DVT prophylaxis 8. Antibiotic prophylaxis Objective - Vital Signs Vital signs: Vital Signs Temp 98.3 F 05/28/19 13:55 Pulse 70 05/28/19 13:55 Resp BP 116/77 05/28/19 13:55 Pulse Ox Intake & Output 05/27/19 05/28/19 05/28/19 18:59 06:59 18:59 Weight 67.54 kg
[2019-05-28 15:50] LABS: HCT 48.3 % (34.0-46.0); MCH 31.8 pg (25.0-35.0); MCHC 32.8 g/dL (31.0-37.0); MCV 96.9 fL (80.0-100.0); Mean Platelet Volume 7.1; Platelet Count 265 k/uL (150-450); RBC 4.99 m/uL (3.80-5.40); RDW 15.2 % (11.5-15.5); WBC 7.7 k/uL (3.8-10.6)
[2019-05-28 15:53] LABS: HGB 15.9 gm/dL (11.4-16.0)
[2019-05-28 16:02] LABS: INR 0.9 (<1.2); Partial Thromboplastin Time 26.7 sec (22.0-30.0); Prothrombin Time 10.2 sec (9.0-12.0)
[2019-05-29 01:07] LABS: Hemoglobin A1C 4.6 % (4.0-6.0)
[2019-05-29 05:27] LABS: African American GFR (CKD) 101.8 (60.0-200.0); Albumin 4.6 g/dL (3.80-4.90); Anion Gap 11.7 mmol/L (4.00-12.00); BUN/Creat Ratio 16.25 Ratio (12.00-20.00); Calcium 9.5 mg/dL (8.7-10.3); Carbon Dioxide 22.3 mmol/L (21.6-31.8); Chol/HDL Ratio 3.42; Globulin 2.3 g/dL (1.6-3.3); Phosphorus 4.1 mg/dL (2.4-5.1); Potassium 4.7 mmol/L (3.5-5.5); Total Bilirubin 0.5 mg/dL (0.3-1.2); Total Protein 6.9 g/dL (6.2-8.2)
[2019-05-29 05:34] LABS: Iron Saturation 31.72 (12.00-45.00)
[2019-05-29 05:43] LABS: Ferritin 49.9 ng/mL (10.0-291.0); Vitamin D 25 Hydroxy 28.6 ng/mL (30.0-100.0)
[2019-05-29 06:16] LABS: Folate, Serum 16.3 ng/mL
[2019-05-29 12:10] LABS: Zinc, Serum 71 ug/dL (60-130)
[2019-05-30 06:51] LABS: Vitamin A 52 ug/dL (38-106)
[2019-05-30 07:53] LABS: Vit B1(Thiamine) 104 ug/L (38-122)
== END | disposition home or self-care (01) ==
LOC: BARWHC3 13:10
PROVIDERS: ATTEND Surgery Plastic and Reconstructive Surgery
DX: M79.3 Panniculitis, unspecified (principal); E66.01 Morbid (severe) obesity due to excess calories; Z68.27 Body mass index [BMI] 27.0-27.9, adult; M17.9 Osteoarthritis of knee, unspecified; M47.816 Spondylosis without myelopathy or radiculopathy, lumbar region; M79.7 Fibromyalgia; G43.909 Migraine, unspecified, not intractable, without status migrainosus; E55.9 Vitamin D deficiency, unspecified; E03.9 Hypothyroidism, unspecified; K21.9 Gastro-esophageal reflux disease without esophagitis; F41.9 Anxiety disorder, unspecified; F31.9 Bipolar disorder, unspecified; D50.9 Iron deficiency anemia, unspecified; G89.29 Other chronic pain; M54.5 Low back pain; Z86.73 Personal history of transient ischemic attack (TIA), and cerebral infarction without residual deficits; Z90.49 Acquired absence of other specified parts of digestive tract; E21.1 Secondary hyperparathyroidism, not elsewhere classified; E89.1 Postprocedural hypoinsulinemia; K90.9 Intestinal malabsorption, unspecified; K74.1 Hepatic sclerosis; N19 Unspecified kidney failure; K50.90 Crohn's disease, unspecified, without complications; Z79.891 Long term (current) use of opiate analgesic; Z79.899 Other long term (current) drug therapy; Z88.2 Allergy status to sulfonamides
CPT/HCPCS: 36415; 80053; 80061; 82306; 82525; 82607; 82728; 82746; 83036; 83540; 83550; 83735; 83970; 84100; 84134; 84255; 84425; 84443; 84590; 84630; 85027; 85610; 85730; 99211

== ENCOUNTER → 2019-09-26 | Outpatient (CLI) | payer OTHER ==
[2019-09-29 03:08] LABS: Herpes simplex I and/or II IgM 1.62 INDEX (<=0.90); Herpes simplex IgG I Ab 0.02 (< or = 0.90)
== END | disposition home or self-care (01) ==
LOC: LABWHC1 14:36
PROVIDERS: ATTEND Obstetrics & Gynecology
DX: L98.499 Non-pressure chronic ulcer of skin of other sites with unspecified severity (principal)
CPT/HCPCS: 36415; 86694; 86695; 86696

== ENCOUNTER → 2019-10-09 | Outpatient (CLI) | payer OTHER ==
[2019-10-09 15:58] LABS: Basophils # (A) 0.1 k/uL (0-0.2); Basophils % (A) 1 %; Eosinophils # (A) 0.2 k/uL (0-0.7); Eosinophils % (A) 2 %; HCT 50.8 % (34.0-46.0); HGB 16.6 gm/dL (11.4-16.0); Lymphocytes # (A) 1.8 k/uL (1.0-4.8); Lymphocytes % (A) 20 %; MCH 32.6 pg (25.0-35.0); MCHC 32.7 g/dL (31.0-37.0); MCV 99.8 fL (80.0-100.0); Mean Platelet Volume 7.5; Monocytes # (A) 0.4 k/uL (0-1.0); Monocytes % (A) 4 %; Neutrophils # (A) 6.3 k/uL (1.3-7.7); Neutrophils % (A) 72 %; Platelet Count 244 k/uL (150-450); RBC 5.09 m/uL (3.80-5.40); RDW 13.6 % (11.5-15.5); WBC 8.8 k/uL (3.8-10.6)
[2019-10-09 22:59] LABS: African American GFR (CKD) 101.8 (60.0-200.0); Albumin 4.6 g/dL (3.80-4.90); Albumin/Globulin Ratio 2.3 (1.60-3.17); Anion Gap 5.9 mmol/L (4.00-12.00); BUN/Creat Ratio 13.75 Ratio (12.00-20.00); Calcium 8.9 mg/dL (8.7-10.3); Carbon Dioxide 26.1 mmol/L (21.6-31.8); Non-African American GFR(CKD) 87.8 (60.0-200.0); Potassium 4.2 mmol/L (3.5-5.5); Total Bilirubin 0.4 mg/dL (0.3-1.2); Total Protein 6.6 g/dL (6.2-8.2)
[2019-10-09 23:07] LABS: T4, Free (Free Thyroxine) 1.1 ng/dL (0.80-1.80)
== END | disposition home or self-care (01) ==
LOC: LABWHC1 15:45
PROVIDERS: ATTEND Nurse Practitioner Acute Care
DX: E55.9 Vitamin D deficiency, unspecified (principal); R53.83 Other fatigue
CPT/HCPCS: 36415; 80053; 82306; 82607; 84207; 84439; 84443; 84481; 85025

== ENCOUNTER → 2019-10-29 | Outpatient (CLI) | payer OTHER ==
--- NOTE | 2019-10-31 14:02 | MM ---
Reason for exam: screening (asymptomatic). History: Patient is postmenopausal and had first child at age 33. Family history of breast cancer in mother at age 34. Taking estrogen for 6 months. Physical Findings: A clinical breast exam by your physician is recommended on an annual basis and results should be correlated with mammographic findings. MG 3D Screening Mammo W/Cad Bilateral CC and MLO view(s) were taken. The breast tissue is heterogeneously dense. This may lower the sensitivity of mammography. There is a 7mm group of left upper outer quadrant calcifications at posterior depth. No suspicious abnormality on the right breast. ASSESSMENT: Incomplete: need additional imaging evaluation, BI-RAD 0 RECOMMENDATION: Special view mammogram of the left breast. [facility] will attempt to contact patient to return for supplemental views.
== END | disposition home or self-care (01) ==
LOC: RADMAMWWP 13:57
PROVIDERS: ATTEND Obstetrics & Gynecology
DX: Z12.31 Encounter for screening mammogram for malignant neoplasm of breast (principal)
CPT/HCPCS: 77063; 77067

== ENCOUNTER 2019-11-11 21:53 | Emergency (ER) | payer OTHER ==
[2019-11-11 22:29] VITALS: BP 146/67; PULSE 66; RESP 18; TEMP 97.9
--- NOTE | 2019-11-11 23:21 | ED ---
Upper Extremity HPI - General Chief Complaint: Extremity Injury, Upper Stated Complaint: Hand Injury Time Seen by Provider: 11/11/19 23:07 Source: patient Mode of arrival: ambulatory Limitations: no limitations - History of Present Illness Initial Comments: Patient is a 49-year-old female presenting to the emergency Department with complaints of pain in her right hand. Patient states she was hitting a door repeatedly with the palm of her right hand trying to get to her 18-year-old son. Patient states she has pain in the palm of her hand near the base of her right thumb. She states she has mild swelling to the area. No numbness or tingling. She denies any other injuries today. Upon arrival to the ER her vital signs stable. - Related Data Home Medications Medication Instructions Recorded Confirmed Butalb/APAP/Caff 50-325-40Mg 1 tab PO Q8H PRN 03/08/18 05/28/19 [Fioricet 50-325-40] Topiramate 50 mg PO BID 03/08/18 05/28/19 tiZANidine HCL 4 mg PO BID 03/08/18 05/28/19 traMADol HCL [Ultram] 50 - 100 mg PO TID 03/08/18 05/28/19 Cholecalciferol (Vitamin D3) 2,000 unit PO DAILY 03/26/19 05/28/19 [Vitamin D3] Hydrocortisone Cream 1 applic TOPICAL BID 03/26/19 05/28/19 [Hydrocortisone 2.5% Cream] Levothyroxine Sodium [Synthroid] 50 mcg PO MOTU 03/26/19 05/28/19 Levothyroxine Sodium [Synthroid] 75 mcg PO SUWETHFRSA 03/26/19 05/28/19 Meclizine [Antivert] 12.5 mg PO BID 03/26/19 05/28/19 Multivitamins, Thera [Multivitamin 1 tab PO DAILY 03/26/19 05/28/19 (formulary)] metroNIDAZOLE 0.75% CREAM 1 applic TOPICAL BID 03/26/19 05/28/19 [Metrocream] Gabapentin 600 mg PO TID 04/01/19 05/28/19 Estrogens, Conjugated [Premarin] 0.625 mg PO DAILY 04/17/19 05/28/19 Cyanocobalamin [Vitamin B-12 1,000 mcg SQ QMONTH 05/06/19 05/28/19 Injection] Cholecalciferol (Vitamin D3) 10,000 units PO DAILY 06/12/19 06/12/19 [Vitamin D3] Previous Rx's Medication Instructions Recorded Nystatin 100,000 Unit/gm Powd 1 applic TOPICAL BID #60 powder 04/17/18 [Mycostatin Powder] Omeprazole 40 mg PO DAILY #90 capsule. 07/05/18 Omeprazole 40 mg PO DAILY #90 capsule. 05/07/19 Nystatin 100,000 Unit/gm Powd 1 applic TOPICAL BID #60 powder 05/28/19 [Mycostatin Powder] Polyethylene Glycol 3350 [Miralax] 17 gm PO DAILY #527 gm 05/28/19 Allergies Allergy/AdvReac Type Severity Reaction Status Date / Time Sulfa (Sulfonamide Allergy Swelling Verified 11/11/19 22:30 Antibiotics) sea-kelp Allergy Rash/Hives Uncoded 11/11/19 22:30 Review of Systems ROS Statement: Those systems with pertinent positive or pertinent negative responses have been documented in the HPI. ROS Other: All systems not noted in ROS Statement are negative. Past Medical History Past Medical History: CVA/TIA, Fibromyalgia, Neurologic Disorder, Thyroid Disorder Additional Past Medical History / Comment(s): migraine, chronic back pain, patient states that she has had 3 strokes and has 40 spots on her brain. hiatal hernia History of Any Multi-Drug Resistant Organisms: None Reported Past Surgical History: Bariatric Surgery, Section, Cholecystectomy, Hysterectomy Additional Past Surgical History / Comment(s): gastric bypass, LAPAROSCOPY WITH OVARAIN CYST, radioFequency hess to her back neRves, EGD, COLONOSCOPY Past Anesthesia/Blood Transfusion Reactions: No Reported Reaction Additional Past Anesthesia/Blood Transfusion Reaction / Comment(s): gets very shaky when coming out of it Past Psychological History: Anxiety, Bipolar, Depression Smoking Status: Never smoker Past Alcohol Use History: Rare Past Drug Use History: None Reported - Past Family History Mother Family Medical History: Cancer General Exam - General Exam Comments Initial Comments: GENERAL: Well-appearing, well-nourished and in no acute distress. HEAD: Atraumatic, normocephalic. EYES: Pupils equal round and reactive to light, extraocular movements intact, sclera anicteric, conjunctiva are normal. ENT: Moist mucous membranes. NECK: Normal range of motion, supple without lymphadenopathy or JVD. LUNGS: Breath sounds clear to auscultation bilaterally and equal. No wheezes rales or rhonchi. HEART: Regular rate and rhythm without murmurs, rubs or gallops. ABDOMEN: Soft, nontender, normoactive bowel sounds. No guarding, no rebound. No masses appreciated. : Deferred EXTREMITIES: Patient has pain with palpation of the base of the right thumb, palmar aspect. There is some mild swelling to the area. No deformity, no erythema. Patient has pain with opposition. Neurovascular intact. No clubbing or cyanosis. NEUROLOGICAL: Normal speech, normal gait. SKIN: Warm, Dry, normal turgor, no rashes or lesions noted. Limitations: no limitations Course Vital Signs 11/11/19 22:26 Temperature 97.9 F Pulse Rate 66 Respiratory 18 Rate Blood Pressure 146/67 O2 Sat by Pulse 100 Oximetry Medical Decision Making - Medical Decision Making Patient is a 49-year-old female presenting with right hand pain after repeatedly hitting a door with the palm of right hand. X-rays reveal no acute fractures dislocations of right hand. Discussed with patient is most likely a contusion. She is ibuprofen as well as ice to the area. She is stable for discharge. She'll follow up with PCP as symptoms persist. Disposition Clinical Impression: Contusion of right hand Disposition: HOME SELF-CARE Condition: Stable Instructions (If sedation given, give patient instructions): Contusion in Adults (ED) Additional Instructions: Please return to the Emergency Department if symptoms worsen or any other concerns. Use ice to the area. Is patient prescribed a controlled substance at d/c from ED?: No Referrals: Esvin Cheatham MD [Primary Care Provider] - 1-2 days
--- NOTE | 2019-11-12 00:16 | XR ---
EXAMINATION TYPE: XR hand complete RT DATE OF EXAM: 11/11/2019 COMPARISON: 03/24/2017 HISTORY: Pain TECHNIQUE: 3 views FINDINGS: Metacarpals are intact. I see no fracture nor dislocation. Joint spaces are normal. IMPRESSION: No fracture seen. No change compared to old exam.
== END 2019-11-11 23:52 | disposition home or self-care (01) ==
LOC: EC 21:53
DX: S60.221A Contusion of right hand, initial encounter (principal); M79.7 Fibromyalgia; G89.29 Other chronic pain; E07.9 Disorder of thyroid, unspecified; Z88.2 Allergy status to sulfonamides; Z91.013 Allergy to seafood; Z79.3 Long term (current) use of hormonal contraceptives; Z79.890 Hormone replacement therapy; Z79.899 Other long term (current) drug therapy; Z86.73 Personal history of transient ischemic attack (TIA), and cerebral infarction without residual deficits; Z86.69 Personal history of other diseases of the nervous system and sense organs; W22.09XA Striking against other stationary object, initial encounter; Y93.89 Activity, other specified
CPT/HCPCS: 99283

== ENCOUNTER → 2019-11-17 | Outpatient (CLI) | payer OTHER | END | disposition home or self-care (01) | DX: R92.8 Other abnormal and inconclusive findings on diagnostic imaging of breast (principal) | CPT/HCPCS: 77061; 77065 ==

== ENCOUNTER 2020-07-01 10:44 | Emergency (ER) | payer OTHER ==
[2020-07-01] MEDS ORDERED: KETOROLAC 15 MG/ML 1 ML VIAL IVP STA (11:15)
[2020-07-01] MEDS ORDERED: SODIUM CHLORIDE 0.9% 1,000 ML IV STA (11:15)
--- NOTE | 2020-07-01 11:20 | ED ---
General Adult HPI - General Source: patient, RN notes reviewed Mode of arrival: wheelchair Limitations: no limitations <Calos Pickett - Last Filed: 07/01/20 13:16> <Miguelina Bey - Last Filed: 07/04/20 22:15> - General Chief complaint: Fever Stated complaint: covid symptoms Time Seen by Provider: 07/01/20 11:06 - History of Present Illness Initial comments: This a 50-year-old female presents emergency Department chief complaint of shortness breath, left-sided chest pain. Patient states that symptoms started Sunday night and progress. Patient states that she feels short of breath at rest. No recorded temperature time but states that she felt like she had a fever. Patient traveled back from [place] 3 weeks ago. No history of PE or DVT. Denies any leg pain, leg swelling. Patient states she had asthma as a child but no current symptoms and is not on medications for. Patient denies any prior cardiac disease. Patient denies known sick contacts. She states that she feels achy, mild abdominal discomfort. medications for it. (Calos Pickett) - Related Data Home Medications Medication Instructions Recorded Confirmed Butalb/APAP/Caff 50-325-40Mg 1 tab PO Q8H PRN 03/08/18 07/01/20 [Fioricet 50-325-40] Topiramate 50 mg PO BID 03/08/18 07/01/20 tiZANidine HCL 4 mg PO BID PRN 03/08/18 07/01/20 Levothyroxine Sodium [Synthroid] 50 mcg PO SUTUTHSA 03/26/19 07/01/20 Levothyroxine Sodium [Synthroid] 75 mcg PO MOWEFR 03/26/19 07/01/20 Meclizine [Antivert] 12.5 mg PO BID PRN 03/26/19 07/01/20 Gabapentin 600 mg PO TID 04/01/19 07/01/20 Estrogens, Conjugated [Premarin] 0.625 mg PO DAILY 04/17/19 07/01/20 Ammonium Lactate Lotion 1 applic TOPICAL BID PRN 07/01/20 07/01/20 [Lac-Hydrin 12% Lotion] DULoxetine HCL [Cymbalta] 60 mg PO DAILY 07/01/20 07/01/20 HYDROcodone/APAP 5-325MG [[place] 1 tab PO BID PRN 07/01/20 07/01/20 5-325] QUEtiapine FUMARATE 300 mg PO HS 07/01/20 07/01/20 Previous Rx's Medication Instructions Recorded Omeprazole 40 mg PO DAILY #90 capsule. 07/05/18 Azithromycin [Zithromax Z-pack (6 0 mg PO DIRECTED #1 pack 07/01/20 tabs)] Allergies Allergy/AdvReac Type Severity Reaction Status Date / Time Sulfa (Sulfonamide Allergy Swelling Verified 07/01/20 12:20 Antibiotics) sea-kelp Allergy Rash/Hives Uncoded 07/01/20 12:20 Review of Systems ROS Other: All systems not noted in ROS Statement are negative. <Calos Pickett - Last Filed: 07/01/20 13:16> ROS Other: All systems not noted in ROS Statement are negative. <Miguelina Bey - Last Filed: 07/04/20 22:15> ROS Statement: Those systems with pertinent positive or pertinent negative responses have been documented in the HPI. Past Medical History Past Medical History: CVA/TIA, Fibromyalgia, Neurologic Disorder, Thyroid Disorder Additional Past Medical History / Comment(s): migraine, chronic back pain, patient states that she has had 3 strokes and has 40 spots on her brain. hiatal hernia History of Any Multi-Drug Resistant Organisms: None Reported Past Surgical History: Bariatric Surgery, Section, Cholecystectomy, Hysterectomy Additional Past Surgical History / Comment(s): gastric bypass, LAPAROSCOPY WITH OVARAIN CYST, radioFequency hess to her back neRves, EGD, COLONOSCOPY Past Anesthesia/Blood Transfusion Reactions: No Reported Reaction Additional Past Anesthesia/Blood Transfusion Reaction / Comment(s): gets very shaky when coming out of it Past Psychological History: Anxiety, Bipolar, Depression Smoking Status: Never smoker Past Alcohol Use History: Rare Past Drug Use History: None Reported - Past Family History Mother Family Medical History: Cancer <Calos Pickett - Last Filed: 07/01/20 13:16> General Exam Limitations: no limitations General appearance: alert, in no apparent distress Head exam: Present: atraumatic, normocephalic, normal inspection Eye exam: Present: normal appearance, PERRL, EOMI. Absent: scleral icterus, conjunctival injection, periorbital swelling ENT exam: Present: normal exam, normal oropharynx, mucous membranes moist Neck exam: Present: normal inspection, full ROM. Absent: tenderness, meningismus, lymphadenopathy Respiratory exam: Present: normal lung sounds bilaterally. Absent: respiratory distress, wheezes, rales, rhonchi, stridor Cardiovascular Exam: Present: regular rate, normal rhythm, normal heart sounds. Absent: systolic murmur, diastolic murmur, rubs, gallop, clicks GI/Abdominal exam: Present: soft, normal bowel sounds. Absent: distended, tenderness, guarding, rebound, rigid Neurological exam: Present: alert, oriented X3, CN II-XII intact Skin exam: Present: warm, dry, intact, normal color. Absent: rash <Calos Pickett - Last Filed: 07/01/20 13:16> Course Vital Signs 07/01/20 07/01/20 07/01/20 10:58 12:07 13:12 Temperature 96.9 F L Pulse Rate 76 67 68 Respiratory 18 14 14 Rate Blood Pressure 105/71 106/69 105/79 O2 Sat by Pulse 99 100 99 Oximetry 07/01/20 13:44 Temperature 99.0 F Pulse Rate 61 Respiratory 16 Rate Blood Pressure 111/88 O2 Sat by Pulse 0 L Oximetry EKG Findings - EKG Comments: EKG Findings:: EKG performed at 11:57 normal sinus rhythm rate of 63 GA 154 QRS 70 QT/QTC 414/423 <Calos Pickett - Last Filed: 07/01/20 13:16> Medical Decision Making - Lab Data Result diagrams: 07/01/20 11:55 07/01/20 11:55 <Calos Pickett - Last Filed: 07/01/20 13:16> - Lab Data Result diagrams: 07/01/20 11:55 07/01/20 11:55 <Miguelina Bey - Last Filed: 07/04/20 22:15> - Medical Decision Making 42-year-old female presents emergency Department for fever cough congestion sided chest discomfort. Patient has evidence of pneumonia. Patient's d-dimer EKG and labs otherwise unremarkable. Patient was started on IV antibiotics and return, discharge on azithromycin with follow-up in 24 hours and return parameters were discussed. (Calos Pickett I was available for consultation in the emergency department. The history and physical exam were done by the midlevel provider. I was consulted for this patients care. I reviewed the case with the midlevel provider and based on their presentation of the patient, I agree with the assessment, medical decision making and plan of care as documented. Chart was dictated using [employer] dictation software. Attempts were made to correct any dictation errors however some typographical errors may persist. Patient was seen during a national state of emergency due to the Covid-19 pandemic. (Miguelina Bey) - Lab Data Lab Results 07/01/20 07/01/20 07/01/20 Range/Units 11:55 11:55 11:55 WBC 4.7 (3.8-10.6) k/uL RBC 4.90 (3.80-5.40) m/uL Hgb 15.8 (11.4-16.0) gm/dL Hct 49.8 H (34.0-46.0) % MCV 101.6 H (80.0-100.0) fL MCH 32.2 (25.0-35.0) pg MCHC 31.7 (31.0-37.0) g/dL RDW 13.0 (11.5-15.5) % Plt Count 233 (150-450) k/uL Neutrophils % 59 % Lymphocytes % 30 % Monocytes % 4 % Eosinophils % 5 % Basophils % 1 % Neutrophils # 2.8 (1.3-7.7) k/uL Lymphocytes # 1.4 (1.0-4.8) k/uL Monocytes # 0.2 (0-1.0) k/uL Eosinophils # 0.2 (0-0.7) k/uL Basophils # 0.0 (0-0.2) k/uL Macrocytosis Slight PT 9.8 (9.0-12.0) sec INR 0.9 (<1.2) APTT 25.0 (22.0-30.0) sec D-Dimer 0.23 (<0.60) mg/L FEU Sodium (137-145) mmol/L Potassium (3.5-5.1) mmol/L Chloride (98-107) mmol/L Carbon Dioxide (22-30) mmol/L Anion Gap mmol/L BUN (7-17) mg/dL Creatinine (0.52-1.04) mg/dL Est GFR (CKD-EPI)AfAm (>60 ml/min/1.73 sqM) Est GFR (CKD-EPI)NonAf (>60 ml/min/1.73 sqM) Glucose (74-99) mg/dL Calcium (8.4-10.2) mg/dL Magnesium (1.6-2.3) mg/dL Total Bilirubin (0.2-1.3) mg/dL AST (14-36) U/L ALT (4-34) U/L Alkaline Phosphatase (38-126) U/L Troponin I (0.000-0.034) ng/mL NT-Pro-B Natriuret Pep pg/mL Total Protein (6.3-8.2) g/dL Albumin (3.5-5.0) g/dL Lipase (23-300) U/L Urine Color Yellow Urine Appearance Cloudy H (Clear) Urine pH 6.0 (5.0-8.0) Ur Specific Brick 1.026 (1.001-1.035) Urine Protein Trace H (Negative) Urine Glucose (UA) Negative (Negative) Urine Ketones Negative (Negative) Urine Blood Negative (Negative) Urine Nitrite Negative (Negative) Urine Bilirubin Negative (Negative) Urine Urobilinogen 2.0 (<2.0) mg/dL Ur Leukocyte Esterase Negative (Negative) Urine RBC 1 (0-5) /hpf Urine WBC 2 (0-5) /hpf Ur Squamous Epith Cells 6 H (0-4) /hpf Urine Bacteria Occasional H (None) /hpf Urine Mucus Many H (None) /hpf Coronavirus (PCR) (Not Detected) 07/01/20 07/01/20 07/01/20 Range/Units 11:55 11:55 11:55 WBC (3.8-10.6) k/uL RBC (3.80-5.40) m/uL Hgb (11.4-16.0) gm/dL Hct (34.0-46.0) % MCV (80.0-100.0) fL MCH (25.0-35.0) pg MCHC (31.0-37.0) g/dL RDW (11.5-15.5) % Plt Count (150-450) k/uL Neutrophils % % Lymphocytes % % Monocytes % % Eosinophils % % Basophils % % Neutrophils # (1.3-7.7) k/uL Lymphocytes # (1.0-4.8) k/uL Monocytes # (0-1.0) k/uL Eosinophils # (0-0.7) k/uL Basophils # (0-0.2) k/uL Macrocytosis PT (9.0-12.0) sec INR (<1.2) APTT (22.0-30.0) sec D-Dimer (<0.60) mg/L FEU Sodium 137 (137-145) mmol/L Potassium 4.3 (3.5-5.1) mmol/L Chloride 108 H (98-107) mmol/L Carbon Dioxide 24 (22-30) mmol/L Anion Gap 5 mmol/L BUN 10 (7-17) mg/dL Creatinine 0.79 (0.52-1.04) mg/dL Est GFR (CKD-EPI)AfAm >90 (>60 ml/min/1.73 sqM) Est GFR (CKD-EPI)NonAf 90 (>60 ml/min/1.73 sqM) Glucose 97 (74-99) mg/dL Calcium 8.9 (8.4-10.2) mg/dL Magnesium 2.1 (1.6-2.3) mg/dL Total Bilirubin 0.4 (0.2-1.3) mg/dL AST 24 (14-36) U/L ALT 15 (4-34) U/L Alkaline Phosphatase 87 (38-126) U/L Troponin I <0.012 (0.000-0.034) ng/mL NT-Pro-B Natriuret Pep 36 pg/mL Total Protein 7.0 (6.3-8.2) g/dL Albumin 4.0 (3.5-5.0) g/dL Lipase 45 (23-300) U/L Urine Color Urine Appearance (Clear) Urine pH (5.0-8.0) Ur Specific Brick (1.001-1.035) Urine Protein (Negative) Urine Glucose (UA) (Negative) Urine Ketones (Negative) Urine Blood (Negative) Urine Nitrite (Negative) Urine Bilirubin (Negative) Urine Urobilinogen (<2.0) mg/dL Ur Leukocyte Esterase (Negative) Urine RBC (0-5) /hpf Urine WBC (0-5) /hpf Ur Squamous Epith Cells (0-4) /hpf Urine Bacteria (None) /hpf Urine Mucus (None) /hpf Coronavirus (PCR) (Not Detected) 07/01/20 Range/Units 13:34 WBC (3.8-10.6) k/uL RBC (3.80-5.40) m/uL Hgb (11.4-16.0) gm/dL Hct (34.0-46.0) % MCV (80.0-100.0) fL MCH (25.0-35.0) pg MCHC (31.0-37.0) g/dL RDW (11.5-15.5) % Plt Count (150-450) k/uL Neutrophils % % Lymphocytes % % Monocytes % % Eosinophils % % Basophils % % Neutrophils # (1.3-7.7) k/uL Lymphocytes # (1.0-4.8) k/uL Monocytes # (0-1.0) k/uL Eosinophils # (0-0.7) k/uL Basophils # (0-0.2) k/uL Macrocytosis PT (9.0-12.0) sec INR (<1.2) APTT (22.0-30.0) sec D-Dimer (<0.60) mg/L FEU Sodium (137-145) mmol/L Potassium (3.5-5.1) mmol/L Chloride (98-107) mmol/L Carbon Dioxide (22-30) mmol/L Anion Gap mmol/L BUN (7-17) mg/dL Creatinine (0.52-1.04) mg/dL Est GFR (CKD-EPI)AfAm (>60 ml/min/1.73 sqM) Est GFR (CKD-EPI)NonAf (>60 ml/min/1.73 sqM) Glucose (74-99) mg/dL Calcium (8.4-10.2) mg/dL Magnesium (1.6-2.3) mg/dL Total Bilirubin (0.2-1.3) mg/dL AST (14-36) U/L ALT (4-34) U/L Alkaline Phosphatase (38-126) U/L Troponin I (0.000-0.034) ng/mL NT-Pro-B Natriuret Pep pg/mL Total Protein (6.3-8.2) g/dL Albumin (3.5-5.0) g/dL Lipase (23-300) U/L Urine Color Urine Appearance (Clear) Urine pH (5.0-8.0) Ur Specific Brick (1.001-1.035) Urine Protein (Negative) Urine Glucose (UA) (Negative) Urine Ketones (Negative) Urine Blood (Negative) Urine Nitrite (Negative) Urine Bilirubin (Negative) Urine Urobilinogen (<2.0) mg/dL Ur Leukocyte Esterase (Negative) Urine RBC (0-5) /hpf Urine WBC (0-5) /hpf Ur Squamous Epith Cells (0-4) /hpf Urine Bacteria (None) /hpf Urine Mucus (None) /hpf Coronavirus (PCR) Not Detected (Not Detected) Disposition Is patient prescribed a controlled substance at d/c from ED?: No Time of Disposition: 13:18 <Calos Pickett - Last Filed: 07/01/20 13:16> <Miguelina Bey - Last Filed: 07/04/20 22:15> Clinical Impression: Pneumonia Disposition: HOME SELF-CARE Condition: Stable Instructions (If sedation given, give patient instructions): Bacterial Pn eumonia (ED) Additional Instructions: Please return to the Emergency Department if symptoms worsen or any other concerns. Prescriptions: Azithromycin [Zithromax Z-pack (6 tabs)] 0 mg PO DIRECTED #1 pack Referrals: Esvin Cheatham MD [Primary Care Provider] - 1-2 days
--- NOTE | 2020-07-01 12:24 | XR ---
EXAMINATION TYPE: XR chest 2V DATE OF EXAM: 07/01/2020 COMPARISON: 04/17/2019 HISTORY: 50-year-old female chest pain TECHNIQUE: PA and lateral views FINDINGS: The cardiomediastinal silhouette, aorta, and pulmonary vasculature are within normal limits. Mild str gagandeep basilar atelectasis. Increased opacity at the posterior base on the lateral view without pleural effusion. IMPRESSION: Some increased opacity at the posterior base on the lateral view could represent atelectasis or early infiltrate. Clinically correlate.
[2020-07-01 12:25] LABS: Basophils % (A) 1 %; Eosinophils # (A) 0.2 k/uL (0-0.7); Eosinophils % (A) 5 %; HCT 49.8 % (34.0-46.0); HGB 15.8 gm/dL (11.4-16.0); Lymphocytes # (A) 1.4 k/uL (1.0-4.8); Lymphocytes % (A) 30 %; MCH 32.2 pg (25.0-35.0); MCHC 31.7 g/dL (31.0-37.0); MCV 101.6 fL (80.0-100.0); Macrocytosis Slight; Mean Platelet Volume 6.6; Monocytes # (A) 0.2 k/uL (0-1.0); Monocytes % (A) 4 %; Neutrophils # (A) 2.8 k/uL (1.3-7.7); Neutrophils % (A) 59 %; Platelet Count 233 k/uL (150-450); WBC 4.7 k/uL (3.8-10.6)
[2020-07-01 12:36] LABS: D-Dimer 0.23 mg/L FEU (<0.60); INR 0.9 (<1.2); Prothrombin Time 9.8 sec (9.0-12.0)
[2020-07-01 12:49] LABS: ALT 15 U/L (4-34); AST 24 U/L (14-36); African American GFR (CKD) >90 (>60 ml/min/1.73 sqM); Alkaline Phosphatase 87 U/L (38-126); Anion Gap 5 mmol/L; Blood Urea Nitrogen 10 mg/dL (7-17); Calcium 8.9 mg/dL (8.4-10.2); Carbon Dioxide 24 mmol/L (22-30); Chloride 108 mmol/L (98-107); Glucose 97 mg/dL (74-99); Lipase 45 U/L (23-300); Magnesium 2.1 mg/dL (1.6-2.3); Non-African American GFR(CKD) 90 (>60 ml/min/1.73 sqM); Potassium 4.3 mmol/L (3.5-5.1); Sodium 137 mmol/L (137-145); Total Bilirubin 0.4 mg/dL (0.2-1.3)
[2020-07-01 13:02] LABS: Appearance,Urine Cloudy (Clear); Bacteria,Urine Occasional /hpf; Bilirubin,Urine Negative (Negative); Blood,Urine Negative (Negative); Color,Urine Yellow; Glucose,Urine (UA) Negative (Negative); Ketones,Urine Negative (Negative); Leukocyte Esterase,Urine Negative (Negative); Mucus,Urine Many /hpf; Nitrite,Urine Negative (Negative); Protein,Urine Trace (Negative); RBC,Urine 1 /hpf (0-5); Specific Gravity,Urine 1.026 (1.001-1.035); Squamous Epithelial Cell,Urine 6 /hpf (0-4); WBC,Urine 2 /hpf (0-5)
[2020-07-01] MEDS ORDERED: cefTRIAXone IN SWFI 1,000 MG/10 ML SYRINGE IVP STA (13:15)
[2020-07-01 13:45] VITALS: BP 111/88; PULSE 61; RESP 16; TEMP 99
== END 2020-07-01 13:52 | disposition home or self-care (01) ==
LOC: EC 10:44
DX: J18.9 Pneumonia, unspecified organism (principal); F41.9 Anxiety disorder, unspecified; R10.9 Unspecified abdominal pain; F31.9 Bipolar disorder, unspecified; M79.7 Fibromyalgia; E07.9 Disorder of thyroid, unspecified; Z79.899 Other long term (current) drug therapy; Z79.890 Hormone replacement therapy; Z86.73 Personal history of transient ischemic attack (TIA), and cerebral infarction without residual deficits; Z88.2 Allergy status to sulfonamides; Z86.69 Personal history of other diseases of the nervous system and sense organs; Z91.048 Other nonmedicinal substance allergy status; Z20.828 Contact with and (suspected) exposure to other viral communicable diseases
CPT/HCPCS: 36415; 93005; 85379; 83880; 80053; 83690; 83735; 84484; 85025; 85610; 85730; 81001; 71046; 99284; 96374; 96375; 96361; U0003; J0696; J1885

== ENCOUNTER 2021-05-19 14:42 | Emergency (ER) | payer OTHER ==
--- NOTE | 2021-05-19 15:24 | ED ---
General Adult HPI - General Chief complaint: Upper Respiratory Infection Stated complaint: SOB Time Seen by Provider: 05/19/21 15:00 Source: patient Mode of arrival: wheelchair Limitations: no limitations - History of Present Illness Initial comments: Dictation was produced using [employer] dictation software. please excuse any grammatical, word or spelling errors. Chief Complaint: 51-year-old female past medical history of CVA, fibromyalgia presents with 1 week of cough, congestion shortness of breath. History of Present Illness: 51-year-old female she states that for the last 7 days she has been having worsening cough, congestion, runny nose sore throat. Patient also worry about shortness of breath. Patient did not get COVID-19 vaccine. She's thinks that she may have COVID-19. Patient states she has fevers. She has poor appetite. No abdominal pain. No diarrhea. The ROS documented in this emergency department record has been reviewed and confirmed by me. Those systems with pertinent positive or negative responses have been documented in the HPI. All other systems are other negative and/or noncontributory. PHYSICAL EXAM: General Impression: Alert and oriented x3, not in acute distress, coughing HEENT: Normocephalic atraumatic, extra-ocular movements intact, pupils equal and reactive to light bilaterally, mucous membranes moist. Cardiovascular: Heart regular rate and rhythm Chest: Able to complete full sentences, no retractions, no tachypnea, lungs clear to auscultation Abdomen: abdomen soft, non-tender, non-distended, no organomegaly Musculoskeletal: Pulses present and equal in all extremities, no peripheral edema Motor: no focal deficits noted Neurological: CN II-XII grossly intact, no focal motor or sensory deficits noted Skin: Intact with no visualized rashes Psych: Normal affect and mood ED course: 51-year-old female presents to the emergency department with URI symptoms. Vital signs upon arrival are within acceptable limits. Patient is 100% on room air. She is not showing any signs of respiratory distress. Rapid Covid is negative. Chest x-ray shows no acute processes. Clinical presentation consistent with upper respiratory infection secondary to viral cause. Patient reevaluated bedside at 4:30 PM found to be in stable medical condition. Patient discharged. Return precautions discussed. - Related Data Home Medications Medication Instructions Recorded Confirmed Butalb/APAP/Caff 50-325-40Mg 1 tab PO Q8H PRN 03/08/18 07/01/20 [Fioricet 50-325-40] Topiramate 50 mg PO BID 03/08/18 07/01/20 tiZANidine HCL 4 mg PO BID PRN 03/08/18 07/01/20 Levothyroxine Sodium [Synthroid] 50 mcg PO SUTUTHSA 03/26/19 07/01/20 Levothyroxine Sodium [Synthroid] 75 mcg PO MOWEFR 03/26/19 07/01/20 Meclizine [Antivert] 12.5 mg PO BID PRN 03/26/19 07/01/20 Gabapentin 600 mg PO TID 04/01/19 07/01/20 Estrogens, Conjugated [Premarin] 0.625 mg PO DAILY 04/17/19 07/01/20 Ammonium Lactate Lotion 1 applic TOPICAL BID PRN 07/01/20 07/01/20 [Lac-Hydrin 12% Lotion] DULoxetine HCL [Cymbalta] 60 mg PO DAILY 07/01/20 07/01/20 HYDROcodone/APAP 5-325MG [[place] 1 tab PO BID PRN 07/01/20 07/01/20 5-325] QUEtiapine FUMARATE 300 mg PO HS 07/01/20 07/01/20 Previous Rx's Medication Instructions Recorded Omeprazole 40 mg PO DAILY #90 capsule. 07/05/18 Azithromycin [Zithromax Z-pack (6 0 mg PO DIRECTED #1 pack 07/01/20 tabs)] Allergies Allergy/AdvReac Type Severity Reaction Status Date / Time Sulfa (Sulfonamide Allergy Swelling Verified 05/19/21 14:49 Antibiotics) sea-kelp Allergy Rash/Hives Uncoded 05/19/21 14:49 Review of Systems ROS Statement: Those systems with pertinent positive or pertinent negative responses have been documented in the HPI. ROS Other: All systems not noted in ROS Statement are negative. Past Medical History Past Medical History: CVA/TIA, Fibromyalgia, Neurologic Disorder, Thyroid Disorder Additional Past Medical History / Comment(s): migraine, chronic back pain, patient states that she has had 3 strokes and has 40 spots on her brain. hiatal hernia History of Any Multi-Drug Resistant Organisms: None Reported Past Surgical History: Bariatric Surgery, Section, Cholecystectomy, Hysterectomy Additional Past Surgical History / Comment(s): gastric bypass, LAPAROSCOPY WITH OVARAIN CYST, radioFequency hess to her back neRves, EGD, COLONOSCOPY Past Anesthesia/Blood Transfusion Reactions: No Reported Reaction Additional Past Anesthesia/Blood Transfusion Reaction / Comment(s): gets very shaky when coming out of it Past Psychological History: Anxiety, Bipolar, Depression Smoking Status: Never smoker Past Alcohol Use History: Rare Past Drug Use History: None Reported - Past Family History Mother Family Medical History: Cancer General Exam Limitations: no limitations Course Vital Signs 05/19/21 14:46 Temperature 98.1 F Pulse Rate 73 Respiratory 19 Rate Blood Pressure 99/69 O2 Sat by Pulse 100 Oximetry Medical Decision Making - Lab Data Lab Results 05/19/21 Range/Units 15:17 Coronavirus (PCR) Not Detected (Not Detectd) Disposition Clinical Impression: Common cold Disposition: HOME SELF-CARE Condition: Good Instructions (If sedation given, give patient instructions): Upper Respiratory Infection (ED) Is patient prescribed a controlled substance at d/c from ED?: No Referrals: Esvin Cheatham MD [Primary Care Provider] - 1-2 days
--- NOTE | 2021-05-19 15:54 | XR ---
EXAMINATION TYPE: XR chest 1V portable DATE OF EXAM: 05/19/2021 COMPARISON: Chest x-ray July 01, 2020 HISTORY: Cough and shortness of breath. TECHNIQUE: Single AP portable frontal upright view of the chest is obtained. FINDINGS: There is no suspicious new focal air space opacity, pleural effusion, or pneumothorax seen . The cardiac silhouette size is stable and within normal limits. The osseous structures are intac t. Cholecystectomy clips redemonstrated. IMPRESSION: No acute process. No significant change from prior.
[2021-05-19 17:42] VITALS: BP 110/74; PULSE 79; RESP 17; TEMP 97.9
== END 2021-05-19 17:42 | disposition home or self-care (01) ==
LOC: EC 14:42
DX: J00 Acute nasopharyngitis [common cold] (principal); M79.7 Fibromyalgia; E07.9 Disorder of thyroid, unspecified; F41.9 Anxiety disorder, unspecified; F31.9 Bipolar disorder, unspecified; Z88.2 Allergy status to sulfonamides; Z20.822 Contact with and (suspected) exposure to COVID-19; Z86.73 Personal history of transient ischemic attack (TIA), and cerebral infarction without residual deficits; Z98.84 Bariatric surgery status; Z90.49 Acquired absence of other specified parts of digestive tract; Z90.710 Acquired absence of both cervix and uterus
CPT/HCPCS: 71045; 87635; 99285

== ENCOUNTER 2022-05-19 15:40 | Emergency (ER) | payer OTHER ==
[2022-05-19 15:52] VITALS: RESP 18
[2022-05-19] MEDS ORDERED: ORPHENADRINE 30 MG/ML 2 ML VIAL IM STA (16:16)
[2022-05-19] MEDS ORDERED: KETOROLAC 15 MG/ML 1 ML VIAL IM STA (16:16)
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
--- NOTE | 2022-05-19 17:49 | XR ---
EXAMINATION TYPE: XR thoracic spine 2V DATE OF EXAM: 05/19/2022 COMPARISON: Chest x-ray 07/01/2020 HISTORY: Pain TECHNIQUE: 2 views FINDINGS: The thoracic vertebra have normal alignment. No compression fracture. No paraspinal mass. N o evidence of focal bone destruction. IMPRESSION: Negative thoracic spine exam.
--- NOTE | 2022-05-19 17:50 | XR ---
EXAMINATION TYPE: XR lumbar spine 2 or 3V DATE OF EXAM: 05/19/2022 COMPARISON: 12/31/2017 HISTORY: Pain TECHNIQUE: 3 views FINDINGS: The vertebrae are in normal alignment. Posterior elements are intact. There is narrowing of the L3-4 disc space with spurring. No compression fracture. Sacroiliac joints are intact IMPRESSION: Spondylosis at L3-4. No fracture. No change.
[2022-05-19 18:36] VITALS: BP 136/92; PULSE 84; TEMP 98.2
== END 2022-05-19 18:36 | disposition home or self-care (01) ==
LOC: EC 15:40
DX: R51.9 Headache, unspecified (principal); Z86.73 Personal history of transient ischemic attack (TIA), and cerebral infarction without residual deficits; E07.9 Disorder of thyroid, unspecified; F41.9 Anxiety disorder, unspecified; F31.9 Bipolar disorder, unspecified; F12.90 Cannabis use, unspecified, uncomplicated; Z88.2 Allergy status to sulfonamides; Z91.013 Allergy to seafood; Z79.890 Hormone replacement therapy; Z79.899 Other long term (current) drug therapy; V49.50XA Passenger injured in collision with unspecified motor vehicles in traffic accident, initial encounter
CPT/HCPCS: 72070; 72100; 72125; 70450; 99284; 96372 ×2; J2360; J1885

== ENCOUNTER 2024-03-30 15:15 | Observation (INO) | payer OTHER ==
[2024-03-30 15:32] LABS: Glucose,Whole Blood 69 mg/dL (70-110)
--- NOTE | 2024-03-30 15:45 | ED ---
General Adult HPI - General Chief complaint: Syncope Stated complaint: Syncope Time Seen by Provider: 03/30/24 15:24 Source: patient, EMS Mode of arrival: EMS Limitations: no limitations - History of Present Illness Initial comments: 54-year-old female history of thyroid disease migraine headaches bipolar disorder supposedly 3 previous episodes of stroke who is brought in by EMS today after being found by roommate to demonstrate altered mental status. Patient apparently was appearing to be awake but could not or would not answer questions. The patient does not recall any of this episode lasting approximately 30 minutes. Patient did not lose consciousness per the roommate who I did talk to over the phone. Patient in no recent trauma fevers chills nausea vomiting sweats. The patient would perseverate or repeat words at the roommate would say briefly. Currently patient is awake and alert and denies any prior history of seizures. New medication. - Related Data Home Medications Medication Instructions Recorded Confirmed Butalb/APAP/Caff 50-325-40Mg 1 tab PO Q6H PRN 03/08/18 03/30/24 [Fioricet 50-325-40] Topiramate 50 mg PO BID 03/08/18 03/30/24 tiZANidine HCL 6 mg PO TID 03/08/18 03/30/24 Gabapentin 600 mg PO TID 04/01/19 03/30/24 DULoxetine HCL [Cymbalta] 60 mg PO DAILY 07/01/20 03/30/24 HYDROcodone/APAP 5-325MG [[place] 1 tab PO BID PRN 07/01/20 03/30/24 5-325] Atomoxetine HCl [Strattera] 60 mg PO DAILY 03/30/24 03/30/24 DULoxetine HCL [Cymbalta] 30 mg PO DAILY 03/30/24 03/30/24 OLANZapine [ZyPREXA] 15 mg PO HS 03/30/24 03/30/24 busPIRone HCL 15 mg PO QID 03/30/24 03/30/24 prednisoLONE ACETATE 1% OPHTH 1 drop BOTH EYES QID 03/30/24 03/30/24 [Pred Forte 1%] Allergies Allergy/AdvReac Type Severity Reaction Status Date / Time Sulfa (Sulfonamide Allergy Rash/Hives Verified 03/30/24 19:53 Antibiotics) sea-kelp Allergy Rash/Hives Uncoded 03/30/24 15:22 Review of Systems ROS Statement: Those systems with pertinent positive or pertinent negative responses have been documented in the HPI. ROS Other: All systems not noted in ROS Statement are negative. Past Medical History Past Medical History: CVA/TIA, Fibromyalgia, Neurologic Disorder, Thyroid Disorder Additional Past Medical History / Comment(s): migraine, chronic back pain, patient states that she has had 3 strokes and has 40 spots on her brain. hiatal hernia History of Any Multi-Drug Resistant Organisms: None Reported Past Surgical History: Bariatric Surgery, Section, Cholecystectomy, Hysterectomy Additional Past Surgical History / Comment(s): gastric bypass, LAPAROSCOPY WITH OVARAIN CYST, radioFequency hess to her back neRves, EGD, COLONOSCOPY Past Anesthesia/Blood Transfusion Reactions: No Reported Reaction Additional Past Anesthesia/Blood Transfusion Reaction / Comment(s): gets very shaky when coming out of it Past Psychological History: Anxiety, Bipolar, Depression Smoking Status: Never smoker Past Alcohol Use History: None Reported Past Drug Use History: Marijuana - Past Family History Mother Family Medical History: Cancer General Exam - General Exam Comments Initial Comments: This is a well-developed well-nourished awake alert oriented x 4 female Limitations: no limitations General appearance: alert, in no apparent distress Head exam: Present: atraumatic, normocephalic, normal inspection Eye exam: Present: normal appearance, PERRL, EOMI. Absent: scleral icterus, conjunctival injection, periorbital swelling ENT exam: Present: normal exam, mucous membranes moist Neck exam: Present: normal inspection, full ROM, other ( stridor JVD or bruits). Absent: tenderness, meningismus, lymphadenopathy Respiratory exam: Present: normal lung sounds bilaterally. Absent: respiratory distress, wheezes, rales, rhonchi, stridor Cardiovascular Exam: Present: regular rate, normal rhythm, normal heart sounds. Absent: systolic murmur, diastolic murmur, rubs, gallop, clicks GI/Abdominal exam: Present: soft, normal bowel sounds. Absent: distended, tenderness, guarding, rebound, rigid, bruit, pulsatile mass Extremities exam: Present: normal inspection, full ROM, normal capillary refill. Absent: tenderness, pedal edema, joint swelling, calf tenderness Back exam: Present: normal inspection Neurological exam: Present: alert, oriented X3, CN II-XII intact Psychiatric exam: Present: normal affect, normal mood Skin exam: Present: warm, dry, intact, normal color. Absent: rash Course Vital Signs 03/30/24 03/30/24 15:19 18:02 Temperature 98.1 F 98 F Pulse Rate 92 72 Respiratory 18 18 Rate Blood Pressure 120/81 140/82 O2 Sat by Pulse 98 Oximetry Medical Decision Making - Medical Decision Making I did discuss findings with the patient and with her roommates. Patient had no further episodes here however the patient and roommate related that the episode may have lasted least an hour or not the original half hour as suspected. I did discuss the findings with the patient the roommates and with Dr. Cabezas. Patient be admitted with neurological consultation. Was pt. sent in by a medical professional or institution (, PA, TRAINING PROGRAM MANAGER, urgent care, hospital, or [facility]...) When possible be specific @ -No Did you speak to anyone other than the patient for history (EMS, parent, family, police, friend...)? What history was obtained from this source @ -Patient's roommate Did you review nursing and triage notes (agree or disagree)? Why? @ -I reviewed and agree with nursing and triage notes Were old charts reviewed (outside hosp., previous admission, EMS record, old EKG, old radiological studies, urgent care reports/EKG's, [facility] records)? Report findings @ -Old charts were reviewed Differential Diagnosis (chest pain, altered mental status, abdominal pain women, abdominal pain men, vaginal bleeding, weakness, fever, dyspnea, syncope, headache, dizziness, GI bleed, back pain, seizure, CVA, palpatations, mental health, musculoskeletal)? @ -Full status, absence seizure EKG interpreted by me (3pts min.). @ -As above KG interpreted by me sinus rhythm of 81 parable 133 QRS duration 88 QT/QTc 364/[address]-T wave changes X-rays interpreted by me (1pt min.). @ -X-ray interpreted by me no acute process seen CT interpreted by me (1pt min.). @ -Brain and CT angio interpreted by me no evidence of acute process. U/S interpreted by me (1pt. min.). @ -None done What testing was considered but not performed or refused? (CT, X-rays, U/S, labs)? Why? @ -None What meds were considered but not given or refused? Why? @ -None Did you discuss the management of the patient with other professionals (professionals i.e. , PA, TRAINING PROGRAM MANAGER, lab, RT, psych nurse, certified social workers in health care, suppression crew leader, teacher, facility security officer, case liner)? Give summary @ -Ibis Anderson covering for Dr. Hollins Was smoking cessation discussed for >3mins.? @ -No Was critical care preformed (if so, how long)? @ -No Were there social determinants of health that impacted care today? How? (Homelessness, low income, unemployed, alcoholism, drug addiction, transportation, low edu. Level, literacy, decrease access to med. care, fpc, rehab)? @ -No Was there de-escalation of care discussed even if they declined (Discuss DNR or withdrawal of care, Hospice)? DNR status @ -No What co-morbidities impacted this encounter? (DM, HTN, Smoking, COPD, CAD, Cancer, CVA, ARF, Chemo, Hep., AIDS, mental health diagnosis, sleep apnea, morbid obesity)? @ -Thyroid disease migraine headaches, bipolar disorder, anxiety, CVA Was patient admitted / discharged? Hospital course, mention meds given and route, prescriptions, significant lab abnormalities, going to OR and other pertinent info. @ -Hospital course patient was admitted Undiagnosed new problem with uncertain prognosis? @ -No Drug Therapy requiring intensive monitoring for toxicity (Heparin, Nitro, Insulin, Cardizem)? @ -No Were any procedures done? @ -No Diagnosis/symptom? @ -Altered mental status, Acute, or Chronic, or Acute on Chronic? @ - Uncomplicated (without systemic symptoms) or Complicated (systemic symptoms)? @ -Default Side effects of treatment? @ -No Exacerbation, Progression, or Severe Exacerbation? @ -No Poses a threat to life or bodily function? How? (Chest pain, [place], [place], pneumonia, PE, COPD, DKA, ARF, appy, cholecystitis, CVA, Diverticulitis, Homicidal, Suicidal, threat to staff... and all critical care pts) @ -Potential - Lab Data Result diagrams: 03/30/24 15:21 03/30/24 15:21 Lab Results 03/30/24 03/30/24 03/30/24 Range/Units 15:21 15:21 15:21 WBC 12.4 H (3.8-10.6) k/uL RBC 4.64 (3.80-5.40) m/uL Hgb 13.9 (11.4-16.0) gm/dL Hct 44.1 (34.0-46.0) % MCV 95.0 (80.0-100.0) fL MCH 29.9 (25.0-35.0) pg MCHC 31.4 (31.0-37.0) g/dL RDW 14.0 (11.5-15.5) % Plt Count 319 (150-450) k/uL MPV 7.0 Neutrophils % 58 % Lymphocytes % 31 % Monocytes % 6 % Eosinophils % 3 % Basophils % 1 % Neutrophils # 7.1 (1.3-7.7) k/uL Lymphocytes # 3.8 (1.0-4.8) k/uL Monocytes # 0.7 (0-1.0) k/uL Eosinophils # 0.4 (0-0.7) k/uL Basophils # 0.1 (0-0.2) k/uL Hypochromasia Slight D-Dimer 0.65 H (<0.60) mg/L FEU Sodium 140 (137-145) mmol/L Potassium 3.6 (3.5-5.1) mmol/L Chloride 109 H (98-107) mmol/L Carbon Dioxide 22 (22-30) mmol/L Anion Gap 9 mmol/L BUN 7 (7-17) mg/dL Creatinine 0.71 (0.52-1.04) mg/dL Est GFR (CKD-EPI)AfAm >90 (>60 ml/min/1.73 sqM) Est GFR (CKD-EPI)NonAf >90 (>60 ml/min/1.73 sqM) Glucose 68 L (74-99) mg/dL POC Glucose (mg/dL) (70-110) mg/dL POC Glu Envelope Adjuster ID Calcium 9.1 (8.4-10.2) mg/dL Magnesium 1.9 (1.6-2.3) mg/dL Total Bilirubin 0.5 (0.2-1.3) mg/dL AST 34 (14-36) U/L ALT 25 (4-34) U/L Alkaline Phosphatase 101 (38-126) U/L Creatine Kinase 49 (30-135) U/L Troponin I (0.000-0.034) ng/mL Total Protein 7.2 (6.3-8.2) g/dL Albumin 4.5 (3.5-5.0) g/dL TSH 3.900 (0.465-4.680) mIU/L Urine Color Urine Appearance (Clear) Urine pH (5.0-8.0) Ur Specific [place] (1.001-1.035) Urine Protein (Negative) Urine Glucose (UA) (Negative) Urine Ketones (Negative) Urine Blood (Negative) Urine Nitrite (Negative) Urine Bilirubin (Negative) Urine Urobilinogen (<2.0) mg/dL Ur Leukocyte Esterase (Negative) 03/30/24 03/30/24 03/30/24 Range/Units 15:21 15:21 15:30 WBC (3.8-10.6) k/uL RBC (3.80-5.40) m/uL Hgb (11.4-16.0) gm/dL Hct (34.0-46.0) % MCV (80.0-100.0) fL MCH (25.0-35.0) pg MCHC (31.0-37.0) g/dL RDW (11.5-15.5) % Plt Count (150-450) k/uL MPV Neutrophils % % Lymphocytes % % Monocytes % % Eosinophils % % Basophils % % Neutrophils # (1.3-7.7) k/uL Lymphocytes # (1.0-4.8) k/uL Monocytes # (0-1.0) k/uL Eosinophils # (0-0.7) k/uL Basophils # (0-0.2) k/uL Hypochromasia D-Dimer (<0.60) mg/L FEU Sodium (137-145) mmol/L Potassium (3.5-5.1) mmol/L Chloride (98-107) mmol/L Carbon Dioxide (22-30) mmol/L Anion Gap mmol/L BUN (7-17) mg/dL Creatinine (0.52-1.04) mg/dL Est GFR (CKD-EPI)AfAm (>60 ml/min/1.73 sqM) Est GFR (CKD-EPI)NonAf (>60 ml/min/1.73 sqM) Glucose (74-99) mg/dL POC Glucose (mg/dL) 69 L (70-110) mg/dL POC Glu Envelope Adjuster ID Tri Gutierrez Calcium (8.4-10.2) mg/dL Magnesium (1.6-2.3) mg/dL Total Bilirubin (0.2-1.3) mg/dL AST (14-36) U/L ALT (4-34) U/L Alkaline Phosphatase (38-126) U/L Creatine Kinase (30-135) U/L Troponin I <0.012 (0.000-0.034) ng/mL Total Protein (6.3-8.2) g/dL Albumin (3.5-5.0) g/dL TSH (0.465-4.680) mIU/L Urine Color Colorless Urine Appearance Clear (Clear) Urine pH 5.5 (5.0-8.0) Ur Specific [place] 1.001 (1.001-1.035) Urine Protein Negative (Negative) Urine Glucose (UA) Trace H (Negative) Urine Ketones Negative (Negative) Urine Blood Negative (Negative) Urine Nitrite Negative (Negative) Urine Bilirubin Negative (Negative) Urine Urobilinogen <2.0 (<2.0) mg/dL Ur Leukocyte Esterase Negative (Negative) Disposition Clinical Impression: Mental status alteration Disposition: ADMITTED IP TO THIS [facility] Condition: Stable Referrals: Esvin Cheatham MD [Primary Care Provider] - 1-2 days Time of Disposition: 20:30 Decision Date: 03/30/24 Decision Time: 20:30
[2024-03-30 15:47] LABS: Appearance,Urine Clear (Clear); Basophils # (A) 0.1 k/uL (0-0.2); Basophils % (A) 1 %; Bilirubin,Urine Negative (Negative); Blood,Urine Negative (Negative); Color,Urine Colorless; Eosinophils # (A) 0.4 k/uL (0-0.7); Eosinophils % (A) 3 %; Glucose,Urine (UA) Trace (Negative); HCT 44.1 % (34.0-46.0); HGB 13.9 gm/dL (11.4-16.0); Hypochromasia Slight; Ketones,Urine Negative (Negative); Leukocyte Esterase,Urine Negative (Negative); Lymphocytes # (A) 3.8 k/uL (1.0-4.8); Lymphocytes % (A) 31 %; MCH 29.9 pg (25.0-35.0); MCHC 31.4 g/dL (31.0-37.0); Monocytes # (A) 0.7 k/uL (0-1.0); Monocytes % (A) 6 %; Neutrophils # (A) 7.1 k/uL (1.3-7.7); Neutrophils % (A) 58 %; Nitrite,Urine Negative (Negative); PH, Urine 5.5 (5.0-8.0); Platelet Count 319 k/uL (150-450); Protein,Urine Negative (Negative); RBC 4.64 m/uL (3.80-5.40); Specific Gravity,Urine 1.001 (1.001-1.035); Urobilinogen,Urine <2.0 mg/dL (<2.0); WBC 12.4 k/uL (3.8-10.6)
[2024-03-30 16:08] LABS: ALT 25 U/L (4-34); AST 34 U/L (14-36); African American GFR (CKD) >90 (>60 ml/min/1.73 sqM); Albumin 4.5 g/dL (3.5-5.0); Alkaline Phosphatase 101 U/L (38-126); Anion Gap 9 mmol/L; Blood Urea Nitrogen 7 mg/dL (7-17); Calcium 9.1 mg/dL (8.4-10.2); Carbon Dioxide 22 mmol/L (22-30); Chloride 109 mmol/L (98-107); Creatine Kinase 49 U/L (30-135); Glucose 68 mg/dL (74-99); Magnesium 1.9 mg/dL (1.6-2.3); Non-African American GFR(CKD) >90 (>60 ml/min/1.73 sqM); Potassium 3.6 mmol/L (3.5-5.1); Sodium 140 mmol/L (137-145); Total Bilirubin 0.5 mg/dL (0.2-1.3); Total Protein 7.2 g/dL (6.3-8.2)
--- NOTE | 2024-03-30 16:36 | CT ---
EXAMINATION TYPE: CT brain wo con CT DLP: 1156.4 mGycm, Automated exposure control for dose reduction was used. DATE OF EXAM: 03/30/2024 4:14 PM COMPARISON: None. CLINICAL INDICATION:Female, 54 years old with history of Altered mental status, AMS TECHNIQUE: Brain: Axial CT images of the brain were obtained with coronal and sagittal reformats created and rev iewed. Contrast used: None. Oral contrast used: None. FINDINGS: Brain: Extra-axial spaces: No abnormal extra-axial fluid collections. 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 No acute intraparenchymal hemorrhage or mass effect. The parker-white junction is well differentiated. Cerebellum: Unremarkable. Mass effect: No evidence of midline shift. Intracranial vasculature: unremarkable Soft tissues: Normal. Calvarium/osseous structures: No depressed skull fracture. Paranasal sinuses and mastoid air cells: Mild scattered paranasal sinus disease. Visualized orbits: Orbital contents are intact. IMPRESSION: No acute intracranial process.
--- NOTE | 2024-03-30 16:39 | XR ---
EXAMINATION TYPE: XR chest 2V DATE OF EXAM: 03/30/2024 4:18 PM CLINICAL INDICATION:Female, 54 years old with history of Syncope; [facility] COMPARISON: Chest radiographs from and 05/19/2021 TECHNIQUE: XR chest 2V Frontal view of the chest. FINDINGS: Lungs/Pleura: There is no evidence of pleural effusion, focal consolidation, or pneumothorax. Pulmonary vascularity: Unremarkable. Heart/mediastinum: Cardiomediastinal silhouette is unremarkable. Musculoskeletal: No acute osseous pathology. IMPRESSION: No acute cardiopulmonary disease/process.
--- NOTE | 2024-03-30 18:13 | CT ---
EXAMINATION TYPE: CT angio chest CT DLP: 250.1 mGycm, Automated exposure control for dose reduction was used. DATE OF EXAM: 03/30/2024 5:56 PM COMPARISON: Chest radiograph from same day. CLINICAL INDICATION:Female, 54 years old with history of Suspected PE; syncope TECHNIQUE/CONTRAST: CTA scan of the thorax is performed with IV Contrast, patient injected with 100ml mL of Isovue 370, M IP images are created and reviewed these are created on a separate workstation.. FINDINGS: Pulmonary Artery: There is no evidence for a filling defect within the pulmonary vasculature to sugge st acute pulmonary embolism. The pulmonary artery is of normal size. Lungs/Pleura: No evidence of focal consolidation, pleural effusion or pneumothorax. Airway: Large airways are patent. Heart: Heart is within normal limits for size. Vasculature: No evidence of aortic aneurysm. Mediastinum: No gross evidence of adenopathy. Musculoskeletal: No acute osseous abnormalities Soft Tissues/lymph nodes: Unremarkable. Lower neck: No significant findings. Upper Abdomen: No significant findings. Surgical changes to the stomach. The gallbladder surgically absent. IMPRESSION: 1. No evidence of pulmonary embolism. 2. No acute process.
[2024-03-30] MEDS ORDERED: ACETAMINOPHEN TAB 325 MG TAB PO PRN (21:03)
[2024-03-30] MEDS ORDERED: NALOXONE 0.4 MG/ML 1 ML VIAL IV PRN (21:03)
[2024-03-30] MEDS ORDERED: HYDROcodone/APAP 5-325MG 1 EACH TAB PO PRN (21:05)
[2024-03-30] MEDS: GABAPENTIN 300 MG CAP PO SCH (21:49)
[2024-03-30] MEDS: tiZANidine 4 MG TAB PO SCH (21:50)
[2024-03-30] MEDS: busPIRone HCl 5 MG TAB PO SCH (21:52)
[2024-03-30] MEDS: SODIUM CHLORIDE 0.9% 1,000 ML IV SCH (21:53)
[2024-03-30 22:45] VITALS: RESP 16
[2024-03-30] MEDS: prednisoLONE ACETATE 1% OPHTH DROPS 5 ML BTL BOTH EYES SCH (23:16)
[2024-03-31] MEDS ORDERED: DULoxetine HCL 60 MG CAPSULE.DR PO SCH (09:00)
[2024-03-31] MEDS: TOPIRAMATE 25 MG TAB PO SCH (09:30)
[2024-03-31] MEDS: DULoxetine HCL 30 MG CAPSULE.DR PO SCH (09:31)
[2024-03-31] MEDS: NON FORMULARY DRUG (Atomoxetine Hcl [Strattera] 60 MG Capsule) PO SCH (10:01)
--- NOTE | 2024-03-31 14:09 | P.CNNES ---
History of Present Illness Consult date: 03/31/24 Requesting physician: Junaid Florez Reason for Consult: mental status change, rule out absence seizure History of Present Illness: This is a 54-year-old woman who presented emergency department because of confusion. According to the patient she was over at her friend's house yesterday at 3 PM and all of a sudden she became confused and seems that her friend was asking if she was okay and the patient kept on replying we are okay repeatedly. She denies losing consciousness. Denies jerking of any extremities that she was aware of. Denies urinary or bowel incontinence or tongue bite. She denies any history of seizure. Denies any recent fever. Denies any recent headache focal weakness numbness. She feels back to baseline. Per the ED team seems the patient was awake but could not or would not answer questions and she did not recall the episode which lasted about 30 minutes according to her roommate that notified the ED team of the information. It seems the patient would preserve or repeat words the roommates would say briefly. She has not any new medication. Patient states she has history of 3 radiographic stroke that her neurologist (Dr. Bender) notified of. Also has history of fibromyalgia, migraine, depression. States she is on multiple medication gabapentin 600 mg 3 times daily, tizanidine, topiramate 50 mg 1 tablet twice daily, hydrocodone, duloxetine, Cymbalta, buspirone. Some of the workup during this hospital visit consisted of: Patient is afebrile Serum glucose is 68. Otherwise rest of the chemistry panel is unremarkable. CT head is reported as no acute intracranial process. I personally reviewed the CT and agree with the report. Review of Systems The positive and negative as per HPI. Past Medical History Past Medical History: CVA/TIA, Fibromyalgia, Neurologic Disorder, Thyroid Disorder Additional Past Medical History / Comment(s): migraine, chronic back pain, patient states that she has had 3 strokes and has 40 spots on her brain. hiatal hernia History of Any Multi-Drug Resistant Organisms: None Reported Past Surgical History: Bariatric Surgery, Section, Cholecystectomy, Hysterectomy Additional Past Surgical History / Comment(s): gastric bypass, LAPAROSCOPY WITH OVARAIN CYST, radioFequency hess to her back neRves, EGD, COLONOSCOPY Past Anesthesia/Blood Transfusion Reactions: No Reported Reaction Additional Past Anesthesia/Blood Transfusion Reaction / Comment(s): gets very shaky when coming out of it Past Psychological History: Anxiety, Bipolar, Depression Smoking Status: Never smoker Past Alcohol Use History: None Reported Past Drug Use History: Marijuana - Past Family History Mother Family Medical History: Cancer Medications and Allergies Home Medications Medication Instructions Recorded Confirmed Type Butalb/APAP/Caff 50-325-40Mg 1 tab PO Q6H PRN 03/08/18 03/30/24 History [Fioricet 50-325-40] Topiramate 50 mg PO BID 03/08/18 03/30/24 History tiZANidine HCL 6 mg PO TID 03/08/18 03/30/24 History Gabapentin 600 mg PO TID 04/01/19 03/30/24 History DULoxetine HCL [Cymbalta] 60 mg PO DAILY 07/01/20 03/30/24 History HYDROcodone/APAP 5-325MG [[place] 1 tab PO BID PRN 07/01/20 03/30/24 History 5-325] Atomoxetine HCl [Strattera] 60 mg PO DAILY 03/30/24 03/30/24 History DULoxetine HCL [Cymbalta] 30 mg PO DAILY 03/30/24 03/30/24 History OLANZapine [ZyPREXA] 15 mg PO HS 03/30/24 03/30/24 History busPIRone HCL 15 mg PO QID 03/30/24 03/30/24 History prednisoLONE ACETATE 1% OPHTH 1 drop BOTH EYES QID 03/30/24 03/30/24 History [Pred Forte 1%] Allergies Allergy/AdvReac Type Severity Reaction Status Date / Time Sulfa (Sulfonamide Allergy Rash/Hives Verified 03/30/24 19:53 Antibiotics) sea-kelp Allergy Rash/Hives Uncoded 03/30/24 15:22 Physical Examination - Vital Signs Vital Signs: Vital Signs Temp Pulse Resp BP Pulse Ox 03/31/24 11:00 65 16 120/78 100 03/31/24 07:14 65 16 125/71 100 03/31/24 06:34 125/71 03/31/24 06:21 62 16 100 03/31/24 04:00 76 16 92/63 97 03/30/24 23:24 97.7 F 03/30/24 22:40 94.6 F L 78 16 131/89 100 03/30/24 18:02 98 F 72 18 140/82 03/30/24 15:19 98.1 F 92 18 120/81 98 Intake and Output 03/30/24 03/31/24 03/31/24 22:59 06:59 14:59 Other: Weight 65.771 kg GENERAL: The patient is lying in bed and is not in acute distress. NEUROLOGICAL: Higher mental function: The patient is awake, alert, oriented to self, place and time. Patient is following commands. No aphasia and no neglect. Cranial nerves: The pupils are round, equal and reactive to light and accommodation. Visual beltran are full to confrontation throughout. Extraocular movement is intact no nystagmus is noted. Facial sensation is normal to touch throughout. The facial strength is normal throughout. Hearing is normal bilaterally to hand rub. Tongue is midline and moved [id number] without any difficulty. No dysarthria is noted. Shoulder shrug is normal bilaterally. Motor: The strength is 5 over 5 throughout. Normal tone and bulk. Cerebellum: Normal finger to nose heel to goodman bilaterally. Sensation: Sensation is normal to touch throughout. Reflexes (right/left): 2+ throughout. Plantars are downgoing bilaterally. Results - Laboratory Findings CBC and BMP: 03/30/24 15:21 03/30/24 15:21 Abnormal Lab Findings: Abnormal Labs 03/30/24 03/30/24 03/30/24 15:21 15:21 15:21 WBC 12.4 H D-Dimer 0.65 H Chloride 109 H Glucose 68 L POC Glucose (mg/dL) Urine Glucose (UA) 03/30/24 03/30/24 15:21 15:30 WBC D-Dimer Chloride Glucose POC Glucose (mg/dL) 69 L Urine Glucose (UA) Trace H Assessment and Plan Assessment: Is a 54-year-old woman who present emergency department because of episode of confusion and repeating the same phrases. She is per her friend she was confused could not or would not answer questions does not recall any of the episode lasting for about 30 minutes and had preservation or repeating words the roommate would say. She is on multiple medication. Encephalopathy of unknown etiology. Stroke versus seizure versus him due to medication induced especially she is on multiple sedating of/psychotic medication--is back to baseline. History of 3 radiographic strokes notified by her neurologist (Dr. Bender) History of migraine History of fibromyalgia History of depression Polypharmacy Plan: I ordered a routine EEG as well as MRI of the brain with and without Ordered ammonia level and vitamin B12 level. I feel the patient is on poly pharmacy and recommend modification of her medication by her neurologist/psychiatrist and primary care physician as an outpatient. Patient follows-up with Dr. Bender as outpatient. Defer the rest of the medical management to primary and other specialist Thank for the consultation Time with Patient: Greater than 30
--- NOTE | 2024-03-31 14:37 | P.HPIM ---
History of Present Illness H&P Date: 03/31/24 History of present illness; 54-year-old female presented to the emergency department after being found by her roommate demonstrating altered mental status. Roommate states that the patient appeared as though she was awake but could not or would not answer any questions. The patient herself does not recall any of this episode, which she states lasted for 1 hour. Per the roommate the patient did not lose consciousness. Patient's past medical history is significant for thyroid disease, migraine headaches, bipolar disorder, 3 previous episodes of stroke which she states she was unaware of until the found on imaging at a later date. She has had no recent trauma, no fever, no chills, no nausea or vomiting. In the emergency department patient had a brain CT done, which showed no intracranial process. She had a chest x-ray done which showed no evidence of cardiopulmonary disease/process. Her EKG was considered normal, with sinus rhythm. In February a chest CT angiogram which showed no evidence of pulmonary embolism and no acute process. Upon seeing the patient at bedside her friend, who witnessed the event, was present to provide some additional details. She states they will they were going through close, all of a sudden the patient was noted to be in a state of staring with minor movements of her hand reaching towards objects without touching. She notes there was no pronounced shaking, there was no loss of continence, the patient did not lose consciousness. She found the patient would at most look at her and smile, however would not respond to any question she was asking her. Her friend states that the event lasted about 45 minutes to 1 hour, after which she all of a sudden the patient got up and went to the bathroom and was able to respond to all questions, without h aving any recollection of the event itself, and in no evidence of lingering effects. Neurology was consulted, patient was to go undergo EEG as well as an MRI of the brain. Initial lab work done in the ER showed WBCs 12.4, D-dimer 0.65, chloride 109, glucose 68, POC glucose 69, negative troponin 3X EKG done in the ER showed heart rate of 81, no ST segment elevation or depression seen, no T-wave inversions seen. Chest x-ray done in the ER showed no evidence of cardiopulmonary disease/proces s. CT brain showed no intracranial process. CTA chest showed no evidence of pulmonary embolism and no acute process. Patient admitted to internal medicine service REVIEW OF SYSTEMS: CONSTITUTIONAL: No fever, no malaise, no fatigue. HEENT: No recent visual problems or hearing problems. Denied any sore throat. CARDIOVASCULAR: No chest pain, orthopnea, PND, no palpitations, no syncope. PULMONARY: No shortness of breath, no cough, no hemoptysis. GASTROINTESTINAL: No diarrhea, no nausea, no vomiting, no abdominal pain. NEUROLOGICAL: No headaches, no weakness, no numbness. HEMATOLOGICAL: Denies any bleeding or petechiae. GENITOURINARY: Denies any burning micturition, frequency, or urgency. MUSCULOSKELETAL/RHEUMATOLOGICAL: Denies any joint pain, swelling, or any muscle pain. ENDOCRINE: Denies any polyuria or polydipsia. The rest of the 14-point review of systems is negative. PHYSICAL EXAMINATION: GENERAL: The patient is alert and oriented x3, not in any acute distress. Well developed, well nourished. HEENT: Pupils are round and equally reacting to light. EOMI. No scleral icterus. No conjunctival pallor. Normocephalic, atraumatic. No pharyngeal erythema. No thyromegaly. CARDIOVASCULAR: S1 and S2 present. No murmurs, rubs, or gallops. PULMONARY: Chest is clear to auscultation, no wheezing or crackles. ABDOMEN: Soft, nontender, nondistended, normoactive bowel sounds. No palpable organomegaly. MUSCULOSKELETAL: No joint swelling or deformity. EXTREMITIES: No cyanosis, clubbing, or pedal edema. NEUROLOGICAL: Gross neurological examination did not reveal any focal deficits. SKIN: No rashes. Assessment and plan #Altered mental status possibly due to absence seizure Patient herself states that there is no history of seizures Patient has no recollection of stroke however has been told that evidence of stroke has been seen on past imaging (nothing seen on brain CT done today) Patient had a 45-60 minute stretch which she does not recall where she was fully conscious and yet unable to respond to questions or problems from her friend Neurology consulted, patient to undergo EEG, brain MRI and bilateral carotid duplex ultrasound #Fibromyalgia Controlled with patient takes tizanidine, gabapentin at home #CVA/TIA Patient states she has a history of 3 radiographic strokes that her neurologist has been notified/is aware of #Depression Patient currently takes buspirone, olanzapine and at home Continue to monitor vital signs, monitor CBC, monitor CMP. Follow-up on ammonia and vitamin B12. Labs and medication were reviewed. Continue with symptomatic treatment. Resume home medication. Monitor labs and vitals. DVT and GI prophylaxis. Further recommendations as per clinical course of the patient Dictation was produced using [employer] dictation software. please excuse any grammatical, word or spelling errors. Past Medical History Past Medical History: CVA/TIA, Fibromyalgia, Neurologic Disorder, Thyroid Disorder Additional Past Medical History / Comment(s): migraine, chronic back pain, patient states that she has had 3 strokes and has 40 spots on her brain. hiatal hernia History of Any Multi-Drug Resistant Organisms: None Reported Past Surgical History: Bariatric Surgery, Section, Cholecystectomy, Hysterectomy Additional Past Surgical History / Comment(s): gastric bypass, LAPAROSCOPY WITH OVARAIN CYST, radioFequency hess to her back neRves, EGD, COLONOSCOPY Past Anesthesia/Blood Transfusion Reactions: No Reported Reaction Additional Past Anesthesia/Blood Transfusion Reaction / Comment(s): gets very shaky when coming out of it Past Psychological History: Anxiety, Bipolar, Depression Smoking Status: Never smoker Past Alcohol Use History: None Reported Past Drug Use History: Marijuana - Past Family History Mother Family Medical History: Cancer Medications and Allergies Home Medications Medication Instructions Recorded Confirmed Type Butalb/APAP/Caff 50-325-40Mg 1 tab PO Q6H PRN 03/08/18 03/30/24 History [Fioricet 50-325-40] Topiramate 50 mg PO BID 03/08/18 03/30/24 History tiZANidine HCL 6 mg PO TID 03/08/18 03/30/24 History Gabapentin 600 mg PO TID 04/01/19 03/30/24 History DULoxetine HCL [Cymbalta] 60 mg PO DAILY 07/01/20 03/30/24 History HYDROcodone/APAP 5-325MG [[place] 1 tab PO BID PRN 07/01/20 03/30/24 History 5-325] Atomoxetine HCl [Strattera] 60 mg PO DAILY 03/30/24 03/30/24 History DULoxetine HCL [Cymbalta] 30 mg PO DAILY 03/30/24 03/30/24 History OLANZapine [ZyPREXA] 15 mg PO HS 03/30/24 03/30/24 History busPIRone HCL 15 mg PO QID 03/30/24 03/30/24 History prednisoLONE ACETATE 1% OPHTH 1 drop BOTH EYES QID 03/30/24 03/30/24 History [Pred Forte 1%] Allergies Allergy/AdvReac Type Severity Reaction Status Date / Time Sulfa (Sulfonamide Allergy Rash/Hives Verified 03/30/24 19:53 Antibiotics) sea-kelp Allergy Rash/Hives Uncoded 03/30/24 15:22 Physical Exam Vitals: Vital Signs Temp Pulse Resp BP Pulse Ox 03/31/24 07:14 65 16 125/71 100 03/31/24 06:34 125/71 03/31/24 06:21 62 16 100 03/31/24 04:00 76 16 92/63 97 03/30/24 23:24 97.7 F 03/30/24 22:40 94.6 F L 78 16 131/89 100 03/30/24 18:02 98 F 72 18 140/82 03/30/24 15:19 98.1 F 92 18 120/81 98 Intake and Output 03/30/24 03/31/24 03/31/24 22:59 06:59 14:59 Other: Weight 65.771 kg Results CBC & Chem 7: 03/30/24 15:21 03/30/24 15:21 Labs: Abnormal Lab Results - Last 24 Hours (Table) 03/30/24 03/30/24 03/30/24 Range/Units 15:21 15:21 15:21 WBC 12.4 H (3.8-10.6) k/uL D-Dimer 0.65 H (<0.60) mg/L FEU Chloride 109 H (98-107) mmol/L Glucose 68 L (74-99) mg/dL POC Glucose (mg/dL) (70-110) mg/dL Urine Glucose (UA) (Negative) 03/30/24 03/30/24 Range/Units 15:21 15:30 WBC (3.8-10.6) k/uL D-Dimer (<0.60) mg/L FEU Chloride (98-107) mmol/L Glucose (74-99) mg/dL POC Glucose (mg/dL) 69 L (70-110) mg/dL Urine Glucose (UA) Trace H (Negative)
--- NOTE | 2024-03-31 15:56 | US ---
EXAMINATION TYPE: US carotid duplex BILAT DATE OF EXAM: 03/31/2024 COMPARISON: NONE CLINICAL INDICATION: Female, 54 years old with history of stroke; stroke TECHNIQUE: Carotid duplex ultrasound examination. Indirect Doppler criteria was utilized. FINDINGS: EXAM MEASUREMENTS: RIGHT: Peak Systolic Velocity (PSV) cm/sec ----- Right CCA: 80.1 ----- Right ICA: 81.4 ----- Right ECA: 99.5 ICA/CCA ratio: 1.0 RIGHT: End Diastole cm/sec ----- Right CCA: 24.1 ----- Right ICA: 25.8 ----- Right ECA: 18.0 LEFT: Peak Systolic Velocity (PSV) cm/sec ----- Left CCA: 74.6 ----- Left ICA: 76.8 ----- Left ECA: 87.9 ICA/CCA ratio: 1.0 LEFT: End Diastole cm/sec ----- Left CCA: 24.1 ----- Left ICA: 27.4 ----- Left ECA: 18.0 VERTEBRALS (direction of flow): Right Vertebral: Antegrade Left Vertebral: Antegrade Rhythm: Normal PATHOLOGY LABORATORY AIDES TEACHER NOTES: Mild plaque bilateral bifurcations. No evidence of increased velocities IMPRESSION: Less than 50% stenosis of the bilateral carotid bifurcations. Criteria for Assigning % of Stenosis / Diameter reduction (Estimation based on the indirect measurements of the internal carotid artery velocities (ICA PSV). 1. Normal (no stenosis)=ICA PSV < 125 cm/s: ratio < 2.0: ICA EDV<40 cm/s. 2. Less than 50% stenosis=ICA PSV < 125 cm/s: ratio < 2.0: ICA EDV<40 cm/s. 3. 50 to 69% stenosis=ICA PSV of 125 to 230 cm/s: ration 2.0 ? 4.0: ICA EDV 40-100 cm/s. 4. Greater than 70% stenosis to near occlusion= ICA PSV > 230 cm/s: ratio > 4.0: ICA EDV > 100 cm/s. 5. Near occlusion= ICA PSV velocities may be low or undetectable: variable ratio and ICA EDV. 6. Total occlusion=unable to detect flow.
--- NOTE | 2024-03-31 17:19 | MR ---
EXAMINATION TYPE: MR brain wo/w con DATE OF EXAM: 03/31/2024 5:11 PM CLINICAL INDICATION:Female, 54 years old with history of ams. uknown etiology; PHH, AMS, Unknown meagan ology, COMPARISON: 03/30/2024. TECHNIQUE: Multi planar, multi sequence imaging was performed through the brain including: T1, T2, In version recovery, susceptibility weighted imaging and gradient echo imaging and Diffusion weighted im aging. The patient was then given intravenous contrast and multi planar, T1 fat-saturation images wer e obtained. 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 The parker-white junctions, ventricular system, basal cisterns appear unremarkable. Diffusion-weighted imaging shows no evidence of restricted diffusion to suggest acute/subacute infarct. Intracranial arterial flow voids are maintained. Midline structure s show no abnormality. Scattered foci of high T2 signal intensity are seen within the periventricular white matter. The susceptibility weighted images do not reveal any evidence for micro-hemorrhage. Af ter administration of gadolinium, no abnormal enhancement is seen. The bone marrow signal is within normal limits. Paranasal sinuses and mastoid air cells: No significant paranasal sinus disease. Visualized orbits: Orbital contents are intact. IMPRESSION: 1. No evidence of intracranial mass, acute/subacute infarct, or abnormal enhancement. 2. Nonspecific white matter changes, correlate for demyelination versus chronic small vessel ischemic disease.
[2024-03-31 18:44] LABS: Glucose,Whole Blood 105 mg/dL (70-110)
[2024-03-31] MEDS: OLANZapine 7.5 MG TAB PO SCH (22:34)
--- NOTE | 2024-04-01 02:21 | EEG ---
ELECTROENCEPHALOGRAM REPORT CLINICAL HISTORY: This is a 54-year-old woman with episode of confusion. The video EEG is obtained to evaluate for seizure epileptiform activity. RELEVANT MEDICATIONS: 1. Gabapentin. 2. Cymbalta. 3. Topiramate. EEG TYPE: A routine 21-channel EEG with video using the 10/20 electrode placement system. DESCRIPTION: Wakefulness is only obtained. During awake state, the posterior-dominant rhythm consists of [id number] voltage of 9 hertz activity that is well modulated and well sustained. There is no physiological stage 2 sleep architecture. There is no focal slowing. Interictal and ictal is, there appears to be sharply contoured activity predominantly over the T5 region. No seizures noted during this study. ACTIVATION PROCEDURE: Photic stimulation and hyperventilation are not performed. CLINICAL INTERPRETATION: This is an abnormal routine EEG. There is sharply contoured activity over the T5, which can increase risk of focal seizure as well status epilepticus. No seizures noted during the study. The background is normal and there is no focal slowing. Clinical correlation is recommended. MMJUAN / JORGEN: [id number] / MTDD
[2024-04-01] MEDS: BUTALB/APAP/CAFF 50-325-40MG TAB PO PRN (08:59)
--- NOTE | 2024-04-01 13:49 | P.PN ---
Subjective Progress Note Date: 04/01/24 I am following-up with patient and she states she doing much better. She feels back to baseline. Objective - Vital Signs Vital signs: Vital Signs Temp 99.2 F 04/01/24 07:05 Pulse 83 04/01/24 07:05 Resp 16 04/01/24 07:05 BP 109/71 04/01/24 07:05 Pulse Ox 98 04/01/24 07:05 FiO2 Intake & Output 03/31/24 04/01/24 04/01/24 18:59 06:59 18:59 Intake Total 118 Balance 118 Weight 65.771 kg Intake: Oral 118 Other: # Voids 3 - Exam GENERAL: The patient is lying in bed and is not in acute distress. NEUROLOGICAL: Higher mental function: The patient is awake, alert, oriented to self, place and time. Patient is following commands. No aphasia and no neglect. Cranial nerves: The pupils are round, equal and reactive to light and accommo dation. Visual beltran are full to confrontation throughout. Extraocular movement is intact no nystagmus is noted. Facial sensation is normal to touch throughout. The facial strength is normal throughout. Hearing is normal bilaterally to hand rub. Tongue is midline and moved [id number] without any difficulty. No dysarthria is noted. Shoulder shrug is normal bilaterally. Motor: The strength is 5 over 5 throughout. Normal tone and bulk. Cerebellum: Normal finger to nose heel to goodman bilaterally. Sensation: Sensation is normal to touch throughout. Reflexes (right/left): 2+ throughout. Plantars are downgoing bilaterally. Some of the workup during this hospital visit consisted of: Patient is afebrile Serum glucose is 68. Otherwise rest of the chemistry panel is unremarkable. CT head is reported as no acute intracranial process. I personally reviewed the CT and agree with the report. MRI of the brain with and without is no evidence of intracranial mass, acute/subacute infarct or abnormal enhancement. Nonspecific white matter changes correlate for demyelinating versus chronic small vessel ischemic disease. I reviewed the MRI and agree there is no acute or subacute stroke. I feel her white matter lesion is nonspecific and could be due to chronic microvascular disease versus migraine and I do not feel that it is suggestive of Demylinating disease. He will patient possibly has a colloid cyst. Carotid Duplex is reported as less than 50% stenosis of bilateral carotid bifurcation Routine EEG: Is abnormal. There is sharply contoured activity over T5 which can increase risk for focal seizure as well as status epilepticus. No seizure is noted during study. The background is normal and there is no focal slowing. Relations recommend - Labs CBC & Chem 7: 03/30/24 15:21 03/30/24 15:21 Assessment and Plan Assessment: Is a 54-year-old woman who present emergency department because of episode of confusion and repeating the same phrases. She is per her friend she was confused could not or would not answer questions does not recall any of the episode lasting for about 30 minutes and had preservation or repeating words the roommate would say. She is on multiple medication. Encephalopathy of unknown etiology. Has sharply contonoured activity over left temporal (T5) region that increase risk for focal seizure and unsure if patient had seizure at home. MRI Brain is negative for acute/subacute stroke but I feel possible colloid cyst. Also patient is on multiple sedating of/psychotic medication--is back to baseline. History of 3 radiographic strokes notified by her neurologist (Dr. Bender) History of migraine History of fibromyalgia History of depression Polypharmacy Plan: I increased her home dose of Topamax from 50mg bid to 100mg bid which helps with both Migraines and has antiepileptic drugs. Recommend repeat EEG as outpatient by her neurologist. Seizure precaution and pad. Notified the patient that per the [place] law because of the seizure, to avoid driving for 6 months until seizure-free, avoid heights, avoid swimming assisted or using heavy machinery. I feel the patient has colloid cyst on the MRI and I would recommend the patient follow-up with a neurologist and consider neurosurgery evaluation as outpatient. I feel the patient is on poly pharmacy and recommend modification of her medication by her neurologist/psychiatrist and primary care physician as an outpatient. Patient follows-up with Dr. Bender as outpatient. Defer the rest of the medical management to primary and other specialist Plan is discussed with the patient and her nurse There is no further neurological workup. Will sign off. Please reconsult if needed. Time with Patient: Less than 30
--- NOTE | 2024-04-01 14:27 | P.DS ---
Providers Date of admission: 03/30/24 21:03 Attending physician: Kelly Hollins Consults: 03/30/24 21:03 Consult Physician Routine Consulting Provider: Kareem Moore Consult Reason/Comments: Mental status changes, rule out absence seizure Do you want consulting provider notified?: Yes Primary care physician: Esvin Cheatham Hospital Course: Discharge diagnoses; #Altered mental status possibly due to absence seizure Patient herself states that there is no history of seizures Patient has no recollection of stroke however has been told that evidence of stroke has been seen on past imaging (nothing seen on brain CT done today) Patient had a 45-60 minute stretch which she does not recall where she was fully conscious and yet unable to respond to questions or problems from her friend Neurology consulted, patient to undergo EEG, brain MRI and bilateral carotid duplex ultrasound Patient's EEG was considered to be abnormal. It was sharply contoured activity over the T5, which have increased risk of focal seizures with status epilepticus. There were no seizures noted during the study. Patient's Topamax has been increased from 50 mg twice daily to 100 mg twice daily per neurology's suggestion Per neurology suggestion patient to have a repeat EEG as an outpatient by her neurologist #Fibromyalgia Controlled with patient takes tizanidine, gabapentin at home #Migraine headaches Patient takes Topamax, per neurology discussion dose increase from 50 mg twice daily to 100 mg twice daily Additionally patient takes Fioricet 50-325-40 to control #CVA/TIA Patient states she has a history of 3 radiographic strokes that her neurologist has been notified/is aware of #Depression Patient currently takes buspirone, olanzapine and at home Hospital course; 54-year-old female presented to the emergency department after being found by her roommate demonstrating altered mental status. Roommate states that the patient appeared as though she was awake but could not or would not answer any questions. The patient herself does not recall any of this episode, which she states lasted for 1 hour. Per the roommate the patient did not lose consciousness. Patient's past medical history is significant for thyroid disease, migraine headaches, bipolar disorder, 3 previous episodes of stroke which she states she was unaware of until the found on imaging at a later date. She has had no recent trauma, no fever, no chills, no nausea or vomiting. In the emergency department patient had a brain CT done, which showed no intracranial process. She had a chest x-ray done which showed no evidence of cardiopulmonary disease/process. Her EKG was considered normal, with sinus rhythm. In February a chest CT angiogram which showed no evidence of pulmonary embolism and no acute process. Upon seeing the patient at bedside her friend, who witnessed the event, was present to provide some additional details. She states they will they were going through close, all of a sudden the patient was noted to be in a state of staring with minor movements of her hand reaching towards objects without touching. She notes there was no pronounced shaking, there was no loss of continence, the patient did not lose consciousness. She found the patient would at most look at her and smile, however would not respond to any question she was asking her. Her friend states that the event lasted about 45 minutes to 1 hour, after which she all of a sudden the patient got up a nd went to the bathroom and was able to respond to all questions, without having any recollection of the event itself, and in no evidence of lingering effects. Neurology was consulted, patient was to go undergo EEG as well as an MRI of the brain. Initial lab work done in the ER showed WBCs 12.4, D-dimer 0.65, chloride 109, glucose 68, POC glucose 69, negative troponin 3X EKG done in the ER showed heart rate of 81, no ST segment elevation or depression seen, no T-wave inversions seen. Chest x-ray done in the ER showed no evidence of cardiopulmonary disease/process. CT brain showed no intracranial process. CTA chest showed no evidence of pulmonary embolism and no acute process. 04/01 - Patient seen at bedside today. Patient states that she continues to feel well, with no lingering effects of the episode of blank staring, which she does not recall, which caused her to present to the emergency department. Neurology workup continues. Yesterday the patient underwent a carotid Doppler ultrasound, and EEG, and a brain MRI. The carotid duplex ultrasound showed less than 50% stenosis of the bilateral carotid bifurcations. Her EEG was considered to be abnormal. There is a sharply contoured activity over the T5, which have increased risk of focal seizure as well as status epilepticus. No seizures were noted during the study. The background is normal and there is no focal slowing. Brain MRI showed no evidence of intracranial mass, acute/subacute infarct, or abnormal enhancement. Nonspecific white matter changes noted, correlate for demyelination versus chronic small vessel ischemic disease. Labs completed yesterday showed ammonia less than 9, vitamin B12 441. Patient encouraged to follow-up with her neurologist to discuss the possibility of polypharmacy playing some role in her episode and to follow-up with her PCP. Labs done today - none. Carotid duplex ultrasound - less than 50% stenosis of the bilateral carotid bifurcations. EEG - consider abnormal. Sharply contoured activity over the T5, which have increased risk of focal seizures while status epilepticus. No seizures were noted during the study Being normal and no focal slowing. Brain MRI - no evidence of intracranial mass, acute/subacute infarct, or abnormal enhancement. Nonspecific white matter changes, correlate for demyelination versus chronic small vessel ischemic disease. PHYSICAL EXAMINATION: GENERAL: The patient is alert and oriented x3, not in any acute distress. Well developed, well nourished. HEENT: Pupils are round and equally reacting to light. EOMI. No scleral icterus. No conjunctival pallor. Normocephalic, atraumatic. No pharyngeal erythema. No thyromegaly. CARDIOVASCULAR: S1 and S2 present. No murmurs, rubs, or gallops. PULMONARY: Chest is clear to auscultation, no wheezing or crackles. ABDOMEN: Soft, nontender, nondistended, normoactive bowel sounds. No palpable organomegaly. MUSCULOSKELETAL: No joint swelling or deformity. EXTREMITIES: No cyanosis, clubbing, or pedal edema. NEUROLOGICAL: Gross neurological examination did not reveal any focal deficits. SKIN: No rashes. Dictation was produced using [employer] dictation software. please excuse any grammatical, word or spelling errors. Patient Condition at Discharge: Stable Plan - Discharge Summary New Discharge Prescriptions: New Topiramate [Topamax] 100 mg PO BID 30 Days #60 tab Continue Butalb/APAP/Caff 50-325-40Mg [Fioricet 50-325-40] 1 tab PO Q6H PRN PRN Reason: Migraine Headache tiZANidine HCL 6 mg PO TID Gabapentin 600 mg PO TID HYDROcodone/APAP 5-325MG [Poca 5-325] 1 tab PO BID PRN PRN Reason: Pain DULoxetine HCL [Cymbalta] 60 mg PO DAILY OLANZapine [ZyPREXA] 15 mg PO HS Atomoxetine HCl [Strattera] 60 mg PO DAILY DULoxetine HCL [Cymbalta] 30 mg PO DAILY busPIRone HCL 15 mg PO QID prednisoLONE ACETATE 1% OPHTH [Pred Forte 1%] 1 drop BOTH EYES QID Discontinued Topiramate 50 mg PO BID Discharge Medication List Butalb/APAP/Caff 50-325-40Mg [Fioricet 50-325-40] 1 tab PO Q6H PRN 03/08/18 [ History] tiZANidine HCL 6 mg PO TID 03/08/18 [History] Gabapentin 600 mg PO TID 04/01/19 [History] DULoxetine HCL [Cymbalta] 60 mg PO DAILY 07/01/20 [History] HYDROcodone/APAP 5-325MG [[place] 5-325] 1 tab PO BID PRN 07/01/20 [History] Atomoxetine HCl [Strattera] 60 mg PO DAILY 03/30/24 [History] DULoxetine HCL [Cymbalta] 30 mg PO DAILY 03/30/24 [History] OLANZapine [ZyPREXA] 15 mg PO HS 03/30/24 [History] busPIRone HCL 15 mg PO QID 03/30/24 [History] prednisoLONE ACETATE 1% OPHTH [Pred Forte 1%] 1 drop BOTH EYES QID 03/30/24 [History] Topiramate [Topamax] 100 mg PO BID 30 Days #60 tab 04/01/24 [Rx] Follow up Appointment(s)/Referral(s): Esvin Cheatham MD [Primary Care Provider] - 1-2 days Mare Bender MD [Medical Doctor] - 1 Week
[2024-04-01 14:28] VITALS: BP 105/67; PULSE 89; TEMP 99.1
[2024-04-01] MEDS ORDERED: TOPIRAMATE 100 MG TAB PO SCH (21:00)
== END 2024-04-01 15:35 | disposition home or self-care (01) ==
LOC: EC 15:15 → 6NMEDSUR 21:03
PROVIDERS: ADMIT Hospitalist; ATTEND Hospitalist
DX: G93.40 Encephalopathy, unspecified (principal); F31.9 Bipolar disorder, unspecified; F41.9 Anxiety disorder, unspecified; G43.909 Migraine, unspecified, not intractable, without status migrainosus; M79.7 Fibromyalgia; Z86.73 Personal history of transient ischemic attack (TIA), and cerebral infarction without residual deficits; Z79.899 Other long term (current) drug therapy; Z88.2 Allergy status to sulfonamides
CPT/HCPCS: 96361 ×4; 96360; 99285; 36415; 95816; 93005; 85379; 80053; 84443; 82607; 82140; 82550; 83735; 84484 ×2; 85025; 81003; 71046; 93880; 70450; 71275; 70553; G0378 ×3; Q9967; A9585

== ENCOUNTER 2024-10-07 11:35 | Emergency (ER) | payer OTHER ==
[2024-10-07 11:43] VITALS: RESP 20
[2024-10-07 11:47] VITALS: TEMP 98.7
[2024-10-07 11:53] LABS: Glucose,Whole Blood 77 mg/dL (70-110)
--- NOTE | 2024-10-07 11:57 | ED ---
General Adult HPI - General Chief complaint: Altered Mental Status Stated complaint: AMS Time Seen by Provider: 10/07/24 11:43 Source: patient, EMS, RN notes reviewed, old records reviewed Mode of arrival: EMS Limitations: no limitations - History of Present Illness Initial comments: 54-year-old female presenting for evaluation of confusion and hypoglycemia. Patient had been to doctors appointment and was found in the parking lot confused. Blood sugar was checked it was 50. There was no reported injury. She does not have a history of diabetes and states she did not eat breakfast today. Oral glucose was administered and the patient is awake and alert without complaint at the time my evaluation. - Related Data Home Medications Medication Instructions Recorded Confirmed Butalb/APAP/Caff 50-325-40Mg 1 tab PO Q6H PRN 03/08/18 03/30/24 [Fioricet 50-325-40] tiZANidine HCL 6 mg PO TID 03/08/18 03/30/24 Gabapentin 600 mg PO TID 04/01/19 03/30/24 DULoxetine HCL [Cymbalta] 60 mg PO DAILY 07/01/20 03/30/24 HYDROcodone/APAP 5-325MG [[place] 1 tab PO BID PRN 07/01/20 03/30/24 5-325] Atomoxetine HCl [Strattera] 60 mg PO DAILY 03/30/24 03/30/24 DULoxetine HCL [Cymbalta] 30 mg PO DAILY 03/30/24 03/30/24 OLANZapine [ZyPREXA] 15 mg PO HS 03/30/24 03/30/24 busPIRone HCL 15 mg PO QID 03/30/24 03/30/24 prednisoLONE ACETATE 1% OPHTH 1 drop BOTH EYES QID 03/30/24 03/30/24 [Pred Forte 1%] Previous Rx's Medication Instructions Recorded Topiramate [Topamax] 100 mg PO BID 30 Days #60 tab 04/01/24 Allergies Allergy/AdvReac Type Severity Reaction Status Date / Time Sulfa (Sulfonamide Allergy Rash/Hives Verified 10/07/24 11:43 Antibiotics) sea-kelp Allergy Rash/Hives Uncoded 10/07/24 11:43 Review of Systems ROS Statement: Those systems with pertinent positive or pertinent negative responses have been documented in the HPI. ROS Other: All systems not noted in ROS Statement are negative. Past Medical History Past Medical History: CVA/TIA, Fibromyalgia, Neurologic Disorder, Thyroid Disorder Additional Past Medical History / Comment(s): migraine, chronic back pain, tahmina ent states that she has had 3 strokes and has 40 spots on her brain. hiatal hernia History of Any Multi-Drug Resistant Organisms: None Reported Past Surgical History: Bariatric Surgery, Section, Cholecystectomy, Hysterectomy Additional Past Surgical History / Comment(s): gastric bypass, LAPAROSCOPY WITH OVARAIN CYST, radioFequency hess to her back neRves, EGD, COLONOSCOPY Past Anesthesia/Blood Transfusion Reactions: No Reported Reaction Additional Past Anesthesia/Blood Transfusion Reaction / Comment(s): gets very shaky when coming out of it Past Psychological History: Anxiety, Bipolar, Depression Smoking Status: Never smoker Past Alcohol Use History: None Reported Past Drug Use History: Marijuana - Past Family History Mother Family Medical History: Cancer General Exam Limitations: no limitations General appearance: alert, in no apparent distress Head exam: Present: atraumatic, normocephalic Eye exam: Present: normal appearance, PERRL Neck exam: Present: normal inspection. Absent: tenderness, meningismus Respiratory exam: Present: normal lung sounds bilaterally. Absent: respiratory distress, wheezes Cardiovascular Exam: Present: regular rate, normal rhythm GI/Abdominal exam: Present: soft. Absent: distended, tenderness, guarding Extremities exam: Present: other (1 cm abrasion to the left knee no swelling) Neurological exam: Present: alert, oriented X3, CN II-XII intact. Absent: motor sensory deficit Psychiatric exam: Present: normal affect, normal mood Skin exam: Present: warm, dry, intact Course Vital Signs 10/07/24 10/07/24 11:37 11:47 Temperature 98.7 F Pulse Rate 93 Respiratory 20 Rate Blood Pressure 125/71 O2 Sat by Pulse 96 Oximetry Medical Decision Making - Medical Decision Making Was pt. sent in by a medical professional or institution (, PA, CHILD CARE GROUP LEADER, urgent care, hospital, or [facility]...) When possible be specific @ -No Did you speak to anyone other than the patient for history (EMS, parent, family, police, friend...)? What history was obtained from this source @ -Detailed history from paramedics Did you review nursing and triage notes (agree or disagree)? Why? @ -I reviewed and agree with nursing and triage notes Were old charts reviewed (outside hosp., previous admission, EMS record, old EKG, old radiological studies, urgent care reports/EKG's, [facility] records)? Report findings @ -No old charts were reviewed Differential Altered Mental Status: Hypoglycemia, DKA, hypercapnia, ETOH, overdose, CO poisoning, trauma, myxedema coma, HTN encephalopathy, infection, encephalitis, psychosis, intercranial hemorrhage, hepatic encephalopathy, meningitis, CVA, this is not meant to be an all-inclusive list EKG interpreted by me (3pts min.). @ -Sinus rhythm rate of 87, ND interval 163, QRS duration 80, QTc [address] segment elevation. X-rays interpreted by me (1pt min.). @ -None done CT interpreted by me (1pt min.). @ -None done U/S interpreted by me (1pt. min.). @ -None done What testing was considered but not performed or refused? (CT, X-rays, U/S, labs)? Why? @ -None What meds were considered but not given or refused? Why? @ -None Did you discuss the management of the patient with other professionals (professionals i.e. , PA, CHILD CARE GROUP LEADER, lab, RT, psych nurse, rn social services, installation technician, teacher, operations officer, child support case officer)? Give summary @ -No Was smoking cessation discussed for >3mins.? @ -No Was critical care preformed (if so, how long)? @ -No Were there social determinants of health that impacted care today? How? (Homelessness, low income, unemployed, alcoholism, drug addiction, tra nsportation, low edu. Level, literacy, decrease access to med. care, skilled nursing, rehab)? @ -No Was there de-escalation of care discussed even if they declined (Discuss DNR or withdrawal of care, Hospice)? DNR status @ -No What co-morbidities impacted this encounter? (DM, HTN, Smoking, COPD, CAD, Cancer, CVA, ARF, Chemo, Hep., AIDS, mental health diagnosis, sleep apnea, morbid obesity)? @ -None Was patient admitted / discharged? Hospital course, mention meds given and route, prescriptions, significant lab abnormalities, going to OR and other pertinent info. @ -54-year-old female with an episode of confusion related to hypoglycemia. Improved upon arrival after oral glucose supplementation. Patient is fed in the emergency department. Blood glucose is stabilized. She feels completely normal without complaint. She is stable for discharge with outpatient PCP follow-up. She is encouraged to eat regular meals. Undiagnosed new problem with uncertain prognosis? @ -No Drug Therapy requiring intensive monitoring for toxicity (Heparin, Nitro, Insulin, Cardizem)? @ -No Were any procedures done? @ -No Diagnosis/symptom? @Hypoglycemia Acute, or Chronic, or Acute on Chronic? @ -Acute Uncomplicated (without systemic symptoms) or Complicated (systemic symptoms)? @ -Default Side effects of treatment? @ -No Exacerbation, Progression, or Severe Exacerbation? @ -No Poses a threat to life or bodily function? How? (Chest pain, [place], [place], pneumonia, PE, COPD, DKA, ARF, appy, cholecystitis, CVA, Diverticulitis, Homicidal, Suicidal, threat to staff... and all critical care pts) @ -[Low risk at this time - Lab Data Result diagrams: 10/07/24 11:57 10/07/24 11:57 Lab Results 10/07/24 10/07/24 10/07/24 Range/Units 11:46 11:57 11:57 WBC 9.9 (3.8-10.6) k/uL RBC 4.47 (3.80-5.40) m/uL Hgb 12.3 (11.4-16.0) gm/dL Hct 38.8 (34.0-46.0) % MCV 87.0 (80.0-100.0) fL MCH 27.6 (25.0-35.0) pg MCHC 31.7 (31.0-37.0) g/dL RDW 15.7 H (11.5-15.5) % Plt Count 272 (150-450) k/uL MPV 6.9 Neutrophils % 67 % Lymphocytes % 22 % Monocytes % 6 % Eosinophils % 2 % Basophils % 1 % Neutrophils # 6.6 (1.3-7.7) k/uL Lymphocytes # 2.2 (1.0-4.8) k/uL Monocytes # 0.6 (0-1.0) k/uL Eosinophils # 0.2 (0-0.7) k/uL Basophils # 0.1 (0-0.2) k/uL Sodium 136 L (137-145) mmol/L Potassium 3.4 L (3.5-5.1) mmol/L Chloride 106 (98-107) mmol/L Carbon Dioxide 20 L (22-30) mmol/L Anion Gap 10 mmol/L BUN 11 (7-17) mg/dL Creatinine 0.80 (0.52-1.04) mg/dL Est GFR (CKD-EPI)AfAm >90 (>60 ml/min/1.73 sqM) Est GFR (CKD-EPI)NonAf 85 (>60 ml/min/1.73 sqM) Glucose 77 (74-99) mg/dL POC Glucose (mg/dL) 77 (70-110) mg/dL POC Glu Branch Office Administrator ID Suzan Falk Calcium 9.1 (8.4-10.2) mg/dL Total Bilirubin 0.4 (0.2-1.3) mg/dL AST 25 (14-36) U/L ALT 22 (4-34) U/L Alkaline Phosphatase 112 (38-126) U/L Total Protein 6.9 (6.3-8.2) g/dL Albumin 4.2 (3.5-5.0) g/dL Disposition Clinical Impression: Hypoglycemia Disposition: HOME SELF-CARE Condition: Fair Instructions (If sedation given, give patient instructions): Non-diabetic Hypoglycemia (ED) Additional Instructions: Please eat regular meals. Is patient prescribed a controlled substance at d/c from ED?: No Referrals: Esvin Cheatham MD [Primary Care Provider] - 1-2 days Time of Disposition: 12:22
[2024-10-07 12:05] LABS: Basophils # (A) 0.1 k/uL (0-0.2); Basophils % (A) 1 %; Eosinophils # (A) 0.2 k/uL (0-0.7); Eosinophils % (A) 2 %; HCT 38.8 % (34.0-46.0); HGB 12.3 gm/dL (11.4-16.0); Lymphocytes # (A) 2.2 k/uL (1.0-4.8); Lymphocytes % (A) 22 %; MCH 27.6 pg (25.0-35.0); MCHC 31.7 g/dL (31.0-37.0); Mean Platelet Volume 6.9; Monocytes # (A) 0.6 k/uL (0-1.0); Monocytes % (A) 6 %; Neutrophils # (A) 6.6 k/uL (1.3-7.7); Neutrophils % (A) 67 %; Platelet Count 272 k/uL (150-450); RBC 4.47 m/uL (3.80-5.40); RDW 15.7 % (11.5-15.5); WBC 9.9 k/uL (3.8-10.6)
[2024-10-07 12:17] LABS: ALT 22 U/L (4-34); AST 25 U/L (14-36); African American GFR (CKD) >90 (>60 ml/min/1.73 sqM); Albumin 4.2 g/dL (3.5-5.0); Alkaline Phosphatase 112 U/L (38-126); Anion Gap 10 mmol/L; Blood Urea Nitrogen 11 mg/dL (7-17); Calcium 9.1 mg/dL (8.4-10.2); Carbon Dioxide 20 mmol/L (22-30); Chloride 106 mmol/L (98-107); Glucose 77 mg/dL (74-99); Non-African American GFR(CKD) 85 (>60 ml/min/1.73 sqM); Potassium 3.4 mmol/L (3.5-5.1); Sodium 136 mmol/L (137-145); Total Bilirubin 0.4 mg/dL (0.2-1.3); Total Protein 6.9 g/dL (6.3-8.2)
[2024-10-07 12:30] LABS: Glucose,Whole Blood 115 mg/dL (70-110)
[2024-10-07 13:19] VITALS: BP 127/84; PULSE 92
== END 2024-10-07 13:19 | disposition home or self-care (01) ==
LOC: EC 11:35
DX: E16.2 Hypoglycemia, unspecified (principal); Z88.1 Allergy status to other antibiotic agents; Z88.2 Allergy status to sulfonamides; Z86.73 Personal history of transient ischemic attack (TIA), and cerebral infarction without residual deficits
CPT/HCPCS: 36415; 80053; 85025; 93005; 99285